=== PATIENT | female | born 1955 | race American Indian/Alaskan Native ===

== ENCOUNTER 2019-01-21 01:29 | Inpatient (IN) | payer MEDICAID ==
[2019-01-21] MEDS ORDERED: NARCAN 2 MG/2 ML ONE (01:56)
[2019-01-21] MEDS ORDERED: NACL 0.9% 1000 ML IV ONE (02:05)
[2019-01-21] MEDS ORDERED: NARCAN 0.4 MG/1 ML IV ONE (02:06)
[2019-01-21] MEDS ORDERED: LEVOPHED DRIP 4 MG/NS 250 ML 4 MG/250 ML BAG IV ONE (02:21)
--- NOTE | 2019-01-21 02:36 | XRay Report ---
CHEST 1 VIEW INDICATION / CLINICAL INFORMATION: ams, depressed mental status, metastatic ca. COMPARISON: None available. FINDINGS: SUPPORT DEVICES: Tracheostomy tube, right central venous line, right pleural drainage tube HEART / MEDIASTINUM: No significant abnormality. LUNGS / PLEURA: Bilateral pleural effusions. Mild interstitial pulmonary edema No pneumothorax. ADDITIONAL FINDINGS: No significant additional findings. IMPRESSION: There are bilateral pleural effusions present with mild interstitial pulmonary edema. Signer Name: Efren Uribe MD FACR Signed: 01/21/2019 2:32 AM Workstation Name: [facility]
[2019-01-21 02:50] LABS: Alanine Aminotransferase 19 units/L (7-56); Albumin 2.8 g/dL (3.9-5); BUN/Creatinine Ratio 26; Blood Urea Nitrogen 21 mg/dL (7-17); Calcium 8.2 mg/dL (8.4-10.2); Hemolysis Index 1
[2019-01-21] MEDS ORDERED: LEVOPHED DRIP 4 MG/NS 250 ML 4 MG/250 ML BAG IV SCH (03:00)
[2019-01-21 03:09] LABS: Basophils # (Auto) 0.1 K/mm3 (0.0-0.1); Basophils % (Auto) 0.7 % (0.0-1.8); Eosinophils # (Auto) 0.1 K/mm3 (0.0-0.4); Eosinophils % (Auto) 1.5 % (0.0-4.3); Hematocrit 26.7 % (30.3-42.9); Hemoglobin 8.6 gm/dl (10.1-14.3); Lymphocytes # (Auto) 0.4 K/mm3 (1.2-5.4); Lymphocytes % (Auto) 4.1 % (13.4-35.0); Mean Corpuscular HGB Conc 32 % (30-34); Mean Corpuscular Volume 101 fl (79-97); Monocytes # (Auto) 0.8 K/mm3 (0.0-0.8); Monocytes % (Auto) 8.3 % (0.0-7.3); Platelet Count 285 K/mm3 (140-440); Red Blood Count 2.64 M/mm3 (3.65-5.03)
[2019-01-21 03:13] LABS: Red Cell Distribution Width 20.2 % (13.2-15.2)
--- NOTE | 2019-01-21 03:21 | Emergency Department Report ---
ED Altered Mental Status HPI - General Chief Complaint: Dyspnea/Respdistress Stated Complaint: CATRACHITA Time Seen by Provider: 01/21/19 01:55 Source: EMS Mode of arrival: Stretcher Limitations: Other - History of Present Illness Initial Comments: 63-year-old female with a past medical history of breast cancer with metastases to the bone, tracheostomy tube, PEG tube, and a right chest tube connected to a Pleur-evac presents to the hospital from inpatient hospice for alteration in mental status. Patient was admitted to inpatient hospice today. Patient's diminished mental status occurred after receiving morphine 5 mg. Patient also presents with the right arm fentanyl patch 50 g placed on 01/18. No meds given on route that EMS did perform suctioning. Patient is lethargic and hypotensive upon arrival. Patient is full code. - Related Data Home Medications Medication Instructions Recorded Confirmed Last Taken Unobtainable 01/21/19 01/21/19 Unknown Allergies Allergy/AdvReac Type Severity Reaction Status Date / Time piperacillin [From Zosyn] Allergy Unknown Verified 01/21/19 01:49 tazobactam [From Zosyn] Allergy Unknown Verified 01/21/19 01:49 ED Review of Systems ROS: Stated complaint: CATRACHITA Other details as noted in HPI Comment: Unobtainable due to pts medical conditions ED Past Medical Hx - Past Medical History Previous Medical History?: Yes Hx of Cancer: Yes (breast and bone) Additional medical history: Trach on vent, - Surgical History Past Surgical History?: Yes Additional Surgical History: Trach, right sided chest tube, PEG tube - Social History Smoking Status: Unknown if ever smoked Substance Use Type: None - Medications Home Medications: Home Medications Medication Instructions Recorded Confirmed Last Taken Type Unobtainable 01/21/19 01/21/19 Unknown History ED Physical Exam - General Limitations: Other - Other Other exam information: General: Patient lethargic but opens eyes to voice and smiles on occasion. Unable to communicate Head exam: Atraumatic, normocephalic Eyes exam: Normal appearance, pupils equal reactive to light ENT: Tracheostomy to Neck exam: Normal inspection, full range of motion, no meningismus nontender Respiratory exam: Diminished breath sounds bilaterally with crackles. Right- sided chest to wishes we connected to Pleur-evac in ED Cardiovascular: Tachycardic regular rhythm. 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 Back: Normal Inspection Neurologic: Alert, oriented x3, cranial nerves intact, no motor or sensory deficit Psychiatric: Lethargic Skin: Warm, dry, intact ED Course Vital Signs 01/21/19 01/21/19 01/21/19 01:48 02:45 03:00 Temperature 96.2 F L Pulse Rate 136 H 122 H 111 H Respiratory 18 25 H 20 Rate Blood Pressure Blood Pressure 67/42 120/54 118/53 [Right] O2 Sat by Pulse 91 75 L 91 Oximetry 01/21/19 01/21/19 01/21/19 03:15 03:20 03:30 Temperature Pulse Rate 107 H 125 H 107 H Respiratory 16 15 Rate Blood Pressure Blood Pressure 115/77 100/53 [Right] O2 Sat by Pulse 98 97 95 Oximetry 01/21/19 06:02 Temperature Pulse Rate 118 H Respiratory Rate Blood Pressure 76/55 Blood Pressure [Right] O2 Sat by Pulse 97 Oximetry - Lab Data Result diagrams: 01/21/19 Unknown 01/21/19 Unknown Lab Results 01/21/19 01/21/19 01/21/19 Range/Units 03:49 03:57 Unknown WBC 9.8 (4.5-11.0) K/mm3 RBC 2.64 L (3.65-5.03) M/mm3 Hgb 8.6 L (10.1-14.3) gm/dl Hct 26.7 L (30.3-42.9) % MCV 101 H (79-97) fl MCH 33 H (28-32) pg MCHC 32 (30-34) % RDW 20.2 H (13.2-15.2) % Plt Count 285 (140-440) K/mm3 Lymph % (Auto) 4.1 L (13.4-35.0) % Mercer % (Auto) 8.3 H (0.0-7.3) % Eos % (Auto) 1.5 (0.0-4.3) % Baso % (Auto) 0.7 (0.0-1.8) % Lymph # 0.4 L (1.2-5.4) K/mm3 Mercer # 0.8 (0.0-0.8) K/mm3 Eos # 0.1 (0.0-0.4) K/mm3 Baso # 0.1 (0.0-0.1) K/mm3 Seg Neutrophils % 85.4 H (40.0-70.0) % Seg Neutrophils # 8.4 H (1.8-7.7) K/mm3 POC ABG pH 7.416 (7.35-7.45) POC ABG pCO2 43.7 (35-45) POC ABG pO2 57 L (80-105) POC ABG HCO3 28.1 (22-26 mml/L) POC ABG Total CO2 29 (23-27mmol/L) POC ABG O2 Sat 90 POC ABG Base Excess 4 ((-2) - (+3)mmol/L) FiO2 60 % Sodium (137-145) mmol/L Potassium (3.6-5.0) mmol/L Chloride (98-107) mmol/L Carbon Dioxide (22-30) mmol/L Anion Gap mmol/L BUN (7-17) mg/dL Creatinine (0.7-1.2) mg/dL Estimated GFR ml/min BUN/Creatinine Ratio % Glucose (65-100) mg/dL Lactic Acid (0.7-2.0) mmol/L Calcium (8.4-10.2) mg/dL Magnesium (1.7-2.3) mg/dL Total Bilirubin (0.1-1.2) mg/dL AST (5-40) units/L ALT (7-56) units/L Alkaline Phosphatase (35-129) units/L Troponin T (0.00-0.029) ng/mL Total Protein (6.3-8.2) g/dL Albumin (3.9-5) g/dL Albumin/Globulin Ratio % Urine Color Yellow (Yellow) Urine Turbidity Slightly-cloudy (Clear) Urine pH 5.0 (5.0-7.0) Ur Specific Creole 1.016 (1.003-1.030) Urine Protein 30 mg/dl (Negative) mg/dL Urine Glucose (UA) Neg (Negative) mg/dL Urine Ketones Tr (Negative) mg/dL Urine Blood Neg (Negative) Urine Nitrite Neg (Negative) Urine Bilirubin Neg (Negative) Urine Urobilinogen < 2.0 (<2.0) mg/dL Ur Leukocyte Esterase Sm (Negative) Urine WBC (Auto) 17.0 H (0.0-6.0) /HPF Urine RBC (Auto) 4.0 (0.0-6.0) /HPF U Epithel Cells (Auto) 1.0 (0-13.0) /HPF Urine WBC Clumps Few /HPF Hyaline Casts 3 /LPF Granular Casts 1 /LPF Urine Mucus Few /HPF Urine Yeast (Budding) 3+ /HPF 01/21/19 01/21/19 01/21/19 Range/Units Unknown Unknown Unknown WBC (4.5-11.0) K/mm3 RBC (3.65-5.03) M/mm3 Hgb (10.1-14.3) gm/dl Hct (30.3-42.9) % MCV (79-97) fl MCH (28-32) pg MCHC (30-34) % RDW (13.2-15.2) % Plt Count (140-440) K/mm3 Lymph % (Auto) (13.4-35.0) % Mercer % (Auto) (0.0-7.3) % Eos % (Auto) (0.0-4.3) % Baso % (Auto) (0.0-1.8) % Lymph # (1.2-5.4) K/mm3 Mercer # (0.0-0.8) K/mm3 Eos # (0.0-0.4) K/mm3 Baso # (0.0-0.1) K/mm3 Seg Neutrophils % (40.0-70.0) % Seg Neutrophils # (1.8-7.7) K/mm3 POC ABG pH (7.35-7.45) POC ABG pCO2 (35-45) POC ABG pO2 (80-105) POC ABG HCO3 (22-26 mml/L) POC ABG Total CO2 (23-27mmol/L) POC ABG O2 Sat POC ABG Base Excess ((-2) - (+3)mmol/L) FiO2 % Sodium 138 (137-145) mmol/L Potassium 4.0 (3.6-5.0) mmol/L Chloride 98.0 (98-107) mmol/L Carbon Dioxide 31 H (22-30) mmol/L Anion Gap 13 mmol/L BUN 21 H (7-17) mg/dL Creatinine 0.8 (0.7-1.2) mg/dL Estimated GFR > 60 ml/min BUN/Creatinine Ratio 26 % Glucose 104 H (65-100) mg/dL Lactic Acid 1.90 (0.7-2.0) mmol/L Calcium 8.2 L (8.4-10.2) mg/dL Magnesium 2.40 H (1.7-2.3) mg/dL Total Bilirubin 0.20 (0.1-1.2) mg/dL AST 52 H (5-40) units/L ALT 19 (7-56) units/L Alkaline Phosphatase 92 (35-129) units/L Troponin T 0.027 (0.00-0.029) ng/mL Total Protein 5.8 L (6.3-8.2) g/dL Albumin 2.8 L (3.9-5) g/dL Albumin/Globulin Ratio 0.9 % Urine Color (Yellow) Urine Turbidity (Clear) Urine pH (5.0-7.0) Ur Specific Creole (1.003-1.030) Urine Protein (Negative) mg/dL Urine Glucose (UA) (Negative) mg/dL Urine Ketones (Negative) mg/dL Urine Blood (Negative) Urine Nitrite (Negative) Urine Bilirubin (Negative) Urine Urobilinogen (<2.0) mg/dL Ur Leukocyte Esterase (Negative) Urine WBC (Auto) (0.0-6.0) /HPF Urine RBC (Auto) (0.0-6.0) /HPF U Epithel Cells (Auto) (0-13.0) /HPF Urine WBC Clumps /HPF Hyaline Casts /LPF Granular Casts /LPF Urine Mucus /HPF Urine Yeast (Budding) /HPF - EKG Data -: EKG Interpreted by Me (low voltage) EKG shows normal: sinus rhythm, axis (qrs 18), QRS complexes (qrsd 68), ST-T waves (no stemi) Rate: tachycardia (117) When compared to previous EKG there are: previous EKG unavailable - Radiology Data Radiology results: report reviewed CHEST 1 VIEW INDICATION / CLINICAL INFORMATION: ams, depressed mental status, metastatic ca. COMPARISON: None available. FINDINGS: SUPPORT DEVICES: Tracheostomy tube, right central venous line, right pleural drainage tube HEART / MEDIASTINUM: No significant abnormality. LUNGS / PLEURA: Bilateral pleural effusions. Mild interstitial pulmonary edema No pneumothorax. ADDITIONAL FINDI NGS: No significant additional findings. IMPRESSION: There are bilateral pleural effusions present with mild interstitial pulmonary edema. CT head/brain wo con INDICATION / CLINICAL INFORMATION: metastatic cancer, ams. TECHNIQUE: All CT scans at this location are performed using CT dose reduction for ALARA by means of automated exposure control. COMPARISON: None available. FINDINGS: Ventricle size is normal. No mass or mass effect is seen. There is no evidence of intracranial hemorrhage. No obvious area of infarction is identified. There are multiple sclerotic lesions seen in the skull. Visualized paranasal sinuses are clear IMPRESSION: Multiple sclerotic lesions seen in the skull. No acute intracranial abnormality is identified - Medical Decision Making Other differential, CO2 retention. She presented to hypotensive and lethargic Patient had fentanyl patch removed and received Narcan 0.4 mg with some improvement in mental status Initially a sepsis protocol was initiated due to hypotension and tachycardia. 30 mL per KG bolus initially ordered but scaled back to 1 L baseline chest x-ray findings of pulmonary edema and pleural effusion. Patient's port was accessed and patient placed on Levophed drip to support a MAP of 65 Patient will be admitted to the hospital after CT head ABG did not reveal any significant acid-base disturbance. Straight cath of urine shows UTI. Levaquin ordered. - Differential Diagnosis infection, sepsis, anemia, narcotic overdose, intracranial hemorrhage/mass Critical Care Time: Yes Critical care time in (mins) excluding proc time.: 35 Critical care attestation.: If time is entered above; I have spent that time in minutes in the direct care of this critically ill patient, excluding procedure time. ED Disposition Clinical Impression: Narcotic overdose, UTI (urinary tract infection), Sepsis, Breast cancer metastasized to bone, Chest tube in place, Pulmonary edema, Pleural effusion, Hypotension, Anemia, Hospice care patient Disposition: 09 OP ADMIT IP TO THIS HOSP Is pt being admited?: Yes Condition: Stable Time of Disposition: 05:19 (Dr Powers/hosp)
[2019-01-21 04:42] LABS: Bilirubin,Urine NEG (Negative); Blood,Urine NEG (Negative); Color,Urine Yellow (Yellow); Granular Casts,Urine 1 /LPF; Hyaline Casts,Urine 3 /LPF; Mucus,Urine FEW /HPF; Urobilinogen,Urine < 2.0 mg/dL (<2.0)
[2019-01-21] MEDS ORDERED: LEVAQUIN 750MG/150ML 750 MG/150 ML BAG IV ONE (04:52)
[2019-01-21] MEDS ORDERED: SODIUM CHLORIDE FLUSH SYRINGE 10 ML IV PRN (05:25)
[2019-01-21] MEDS ORDERED: PROVENTIL IH PRN (05:25)
[2019-01-21] MEDS ORDERED: ZOFRAN IV PRN (05:25)
--- NOTE | 2019-01-21 05:34 | History and Physical Report ---
<YUNIOR NAVA - Last Filed: 01/21/19 06:26> History of Present Illness Date of examination: 01/21/19 Date of admission: 01/21/2019 Chief complaint: AMS History of present illness: 63-year-old -[place] female with history of breast cancer with metastases to bones, chronic hypoxic respiratory failure s/p trach on vent, PEG tube, right sided Pleura Vac to waterseal presents to [facility] ED via EMS from in- patient hospice with complaints of AMS. Pt was admitted to in-patient hospice on 01/20/19. She had right arm fentanyl patch 50 g placed on 01/18. She received Morhine 5mg and during the course of the day hospice staff noticed a decline in mentation; EMS was called and she was transported to our facility. Upon arrival to our facility the fentanyl patch was removed and she was given Narcan. Past History Past Medical History: cancer (breast cancer with metastases to bones), other (re spiratory failure on vent) Past Surgical History: Other (s/p trach; s/p PEG, rt sided chest port, rt sided pleura vac) Social history: other (in-patient hospice) Family history: no significant family history Medications and Allergies Allergies Allergy/AdvReac Type Severity Reaction Status Date / Time piperacillin [From Zosyn] Allergy Unknown Verified 01/21/19 01:49 tazobactam [From Zosyn] Allergy Unknown Verified 01/21/19 01:49 Home Medications Medication Instructions Recorded Confirmed Last Taken Type Famotidine [Pepcid] 40 mg PO DAILY 01/23/19 01/23/19 Unknown History Lyrica 150 mg PO DAILY 01/23/19 01/23/19 Unknown History Metoprolol Tartrate 6.25 mg PO BID 01/23/19 01/23/19 Unknown History Percocet 10/325 mg 1 tab PO TID 01/23/19 01/23/19 Unknown History diphenhydrAMINE [Benadryl CAP] 25 mg PO QHS PRN 01/23/19 01/23/19 Unknown History fentaNYL [Fentanyl] 50 mcg TP Q72HR 01/23/19 01/23/19 Unknown History Active Meds: Active Medications Acetaminophen (Tylenol) 650 mg PO Q4H PRN PRN Reason: Pain MILD(1-3)/Fever >100.5/[place] Albuterol (Proventil) 2.5 mg IH Q3HRT PRN PRN Reason: Shortness Of Breath Enoxaparin Sodium (Lovenox) 40 mg SUB-Q QDAY LUPIS Hydromorphone HCl (Dilaudid) 0.5 mg IV Q3H PRN PRN Reason: Pain , Severe (7-10) Norepinephrine (Levophed Drip 4 Mg/Ns 250 Ml) 4 mg in 250 mls @ 7.5 mls/hr IV TITR LUPIS; Protocol Last Admin: 01/21/19 02:33 Dose: 2 mcg/min, 7.5 mls/hr Documented by: Levofloxacin/Dextrose (Levaquin 750mg/150ml) 750 mg in 150 mls @ 100 mls/hr IV ONCE ONE Stop: 01/21/19 06:21 Morphine Sulfate (Morphine) 2 mg IV Q4H PRN PRN Reason: Pain, Moderate (4-6) Ondansetron HCl (Zofran) 4 mg IV Q8H PRN PRN Reason: Nausea And Vomiting Sodium Chloride (Sodium Chloride Flush Syringe 10 Ml) 10 ml IV BID LUPIS Sodium Chloride (Sodium Chloride Flush Syringe 10 Ml) 10 ml IV PRN PRN PRN Reason: LINE FLUSH Review of Systems ROS unobtainable: due to mental status Exam - Physical Exam Narrative exam: Physical exam General appearance: Present: No acute distress, awake, unable to assess orientation, patient has trach on vent - EENT Eyes: Present: PERRL, EOM intact ENT: hearing intact, poor dentition - Neck Neck: Present: supple, normal ROM - Respiratory Respiratory effort: Non-labored, on mechanical ventilation support Respiratory: Coarse breath sounds - Cardiovascular Heart rate: 117 (bpm) Rhythm: ST Heart Sounds: Present: S1 & S2. Absent: rub, click - Extremities Extremities: no ischemia, pulses intact, right chest port, right sided pleura Vac to waterseal - Peripheral Assessment Peripheral Pulses: within normal limits - Abdominal General gastrointestinal: soft, non-tender, normal bowel sounds - Integumentary Integumentary: Present: warm, dry - Musculoskeletal Musculoskeletal: generalized weakness - Psychiatric Psychiatric: Unable to assess - Constitutional Vitals: Temp Pulse Resp BP Pulse Ox 96.2 F L 107 H 15 100/53 95 01/21/19 01:48 01/21/19 03:30 01/21/19 03:30 01/21/19 03:30 01/21/19 03:30 Results - Labs CBC & Chem 7: 01/21/19 Unknown 01/21/19 Unknown Labs: Laboratory Last Values WBC 9.8 K/mm3 (4.5-11.0) 01/21/19 Unknown RBC 2.64 M/mm3 (3.65-5.03) L 01/21/19 Unknown Hgb 8.6 gm/dl (10.1-14.3) L 01/21/19 Unknown Hct 26.7 % (30.3-42.9) L 01/21/19 Unknown MCV 101 fl (79-97) H 01/21/19 Unknown MCH 33 pg (28-32) H 01/21/19 Unknown MCHC 32 % (30-34) 01/21/19 Unknown RDW 20.2 % (13.2-15.2) H 01/21/19 Unknown Plt Count 285 K/mm3 (140-440) 01/21/19 Unknown Lymph % (Auto) 4.1 % (13.4-35.0) L 01/21/19 Unknown [place] % (Auto) 8.3 % (0.0-7.3) H 01/21/19 Unknown Eos % (Auto) 1.5 % (0.0-4.3) 01/21/19 Unknown Baso % (Auto) 0.7 % (0.0-1.8) 01/21/19 Unknown Lymph # 0.4 K/mm3 (1.2-5.4) L 01/21/19 Unknown [place] # 0.8 K/mm3 (0.0-0.8) 01/21/19 Unknown Eos # 0.1 K/mm3 (0.0-0.4) 01/21/19 Unknown Baso # 0.1 K/mm3 (0.0-0.1) 01/21/19 Unknown Seg Neutrophils % 85.4 % (40.0-70.0) H 01/21/19 Unknown Seg Neutrophils # 8.4 K/mm3 (1.8-7.7) H 01/21/19 Unknown POC ABG pH 7.416 (7.35-7.45) 01/21/19 03:57 POC ABG pCO2 43.7 (35-45) 01/21/19 03:57 POC ABG pO2 57 (80-105) L 01/21/19 03:57 POC ABG HCO3 28.1 (22-26 mml/L) 01/21/19 03:57 POC ABG Total CO2 29 (23-27mmol/L) 01/21/19 03:57 POC ABG O2 Sat 90 01/21/19 03:57 POC ABG Base Excess 4 ((-2) - (+3)mmol/L) 01/21/19 03:57 60 % 01/21/19 03:57 Sodium 138 mmol/L (137-145) 01/21/19 Unknown Potassium 4.0 mmol/L (3.6-5.0) 01/21/19 Unknown Chloride 98.0 mmol/L (98-107) 01/21/19 Unknown Carbon Dioxide 31 mmol/L (22-30) H 01/21/19 Unknown 13 mmol/L 01/21/19 Unknown BUN 21 mg/dL (7-17) H 01/21/19 Unknown 0.8 mg/dL (0.7-1.2) 01/21/19 Unknown Estimated GFR > 60 ml/min 01/21/19 Unknown 26 % 01/21/19 Unknown Glucose 104 mg/dL (65-100) H 01/21/19 Unknown Lactic Acid 1.90 mmol/L (0.7-2.0) 01/21/19 Unknown Calcium 8.2 mg/dL (8.4-10.2) L 01/21/19 Unknown Magnesium 2.40 mg/dL (1.7-2.3) H 01/21/19 Unknown 0.20 mg/dL (0.1-1.2) 01/21/19 Unknown AST 52 units/L (5-40) H 01/21/19 Unknown ALT 19 units/L (7-56) 01/21/19 Unknown 92 units/L (35-129) 01/21/19 Unknown 0.027 ng/mL (0.00-0.029) 01/21/19 Unknown 5.8 g/dL (6.3-8.2) L 01/21/19 Unknown 2.8 g/dL (3.9-5) L 01/21/19 Unknown 0.9 % 01/21/19 Unknown Yellow (Yellow) 01/21/19 03:49 Slightly-cloudy (Clear) 01/21/19 03:49 5.0 (5.0-7.0) 01/21/19 03:49 Ur Specific [place] 1.016 (1.003-1.030) 01/21/19 03:49 30 mg/dl mg/dL (Negative) 01/21/19 03:49 Neg mg/dL (Negative) 01/21/19 03:49 Tr mg/dL (Negative) 01/21/19 03:49 Neg (Negative) 01/21/19 03:49 Neg (Negative) 01/21/19 03:49 Neg (Negative) 01/21/19 03:49 < 2.0 mg/dL (<2.0) 01/21/19 03:49 Ur Leukocyte Esterase Sm (Negative) 01/21/19 03:49 17.0 /HPF (0.0-6.0) H 01/21/19 03:49 4.0 /HPF (0.0-6.0) 01/21/19 03:49 U Epithel Cells (Auto) 1.0 /HPF (0-13.0) 01/21/19 03:49 Few /HPF 01/21/19 03:49 Hyaline Casts 3 /LPF 01/21/19 03:49 Granular Casts 1 /LPF 01/21/19 03:49 Few /HPF 01/21/19 03:49 3+ /HPF 01/21/19 03:49 - Imaging and Cardiology Chest x-ray: report reviewed (There are bilateral pleural effusions present with mild interstitial pulmonary edema. ), image reviewed Imaging and Cardiology: CT Head: FINDINGS: Ventricle size is normal. No mass or mass effect is seen. There is no evidence of intracranial hemorrhage. No obvious area of infarction is identified. There are multiple sclerotic lesions seen in the skull. Visualized paranasal sinuses are clear IMPRESSION: Multiple sclerotic lesions seen in the skull. No acute intracranial abnormality is identified Assessment and Plan Assessment and plan: 63-year-old -[place] female with history of breast cancer with metastases to bones, chronic hypoxic respiratory failure s/p trach on vent, PEG tube, right sided Pleura Vac to waterseal presents to [facility] ED via EMS from in- patient hospice with complaints of AMS. Upon arrival to our facility she was found to be lethargic and hypotensive. Pt is on in-patient hospice, but family does not want her to return to that facility. Will place a Case management consult for help with new hospice placement. Sepsis -Initiate sepsis protocol -Currently hypotensive on levophed drip to maintain map 65> -Gentle Hydration with IVF -On IV abx -Blood Cultures pending Urinary tract infection -UA showed urine WBC 17 -Urine culture pending -On IV abx Acute encephalopathy -Neuro Checks -Continue supportive care -CT Head negative for evidence of intracranial hemorrhage. No obvious area of infarction is identified. There are multiple sclerotic lesions seen in the skull Moderate to severe malnutrition -s/p Peg -Dietitian consult pending Chronic Hypoxic Respiratory Failure -s/p trach -on Vent -Monitor saturation -Albuterol prn -Guaifenesin when necessary -Respiratory to treat and assess per protocol Anemia of Chronic Disease -Hgb on admission 8.6 -No s/s of active bleeding -Monitor hgb -Transfuse when necessary DVT PPX -on Lovenox History of breast cancer with mets to bones Right sided Chest Tube Pleura Vac to waterseal Advance Directives: No VTE prophylaxis?: Chemical Plan of care discussed with patient/family: Yes <STONEY SMITH - Last Filed: 01/25/19 03:20> Medications and Allergies Active Meds: Active Medications Acetaminophen (Tylenol) 650 mg PO Q4H PRN PRN Reason: Pain MILD(1-3)/Fever >100.5/[place] Albuterol (Proventil) 2.5 mg IH Q3HRT PRN PRN Reason: Shortness Of Breath Enoxaparin Sodium (Lovenox) 40 mg SUB-Q QDAY LUPIS Guaifenesin (Guaifenesin Dm Syrup) 10 ml PO Q4H PRN PRN Reason: Cough Hydromorphone HCl (Dilaudid) 0.5 mg IV Q3H PRN PRN Reason: Pain , Severe (7-10) Norepinephrine (Levophed Drip 4 Mg/Ns 250 Ml) 4 mg in 250 mls @ 7.5 mls/hr IV TITR LUPIS; Protocol Last Admin: 01/21/19 02:33 Dose: 2 mcg/min, 7.5 mls/hr Documented by: Ceftriaxone Sodium (Rocephin/Ns 1 Gm/50 Ml) 1 gm in 50 mls @ 100 mls/hr IV Q24HR LUPIS; Protocol Sodium Chloride (Nacl 0.9% 1000 Ml) 1,000 mls @ 75 mls/hr IV DIRECT LUPIS Morphine Sulfate (Morphine) 2 mg IV Q4H PRN PRN Reason: Pain, Moderate (4-6) Ondansetron HCl (Zofran) 4 mg IV Q8H PRN PRN Reason: Nausea And Vomiting Sodium Chloride (Sodium Chloride Flush Syringe 10 Ml) 10 ml IV BID LUPIS Sodium Chloride (Sodium Chloride Flush Syringe 10 Ml) 10 ml IV PRN PRN PRN Reason: LINE FLUSH Exam - Constitutional Vitals: Temp Pulse Resp BP Pulse Ox 96.2 F L 118 H 15 76/55 97 01/21/19 01:48 01/21/19 06:02 01/21/19 03:30 01/21/19 06:02 01/21/19 06:02 Results - Labs CBC & Chem 7: 01/23/19 04:05 01/24/19 04:29 Labs: Laboratory Last Values WBC 9.8 K/mm3 (4.5-11.0) 01/21/19 Unknown RBC 2.64 M/mm3 (3.65-5.03) L 01/21/19 Unknown Hgb 8.6 gm/dl (10.1-14.3) L 01/21/19 Unknown Hct 26.7 % (30.3-42.9) L 01/21/19 Unknown MCV 101 fl (79-97) H 01/21/19 Unknown MCH 33 pg (28-32) H 01/21/19 Unknown MCHC 32 % (30-34) 01/21/19 Unknown RDW 20.2 % (13.2-15.2) H 01/21/19 Unknown Plt Count 285 K/mm3 (140-440) 01/21/19 Unknown Lymph % (Auto) 4.1 % (13.4-35.0) L 01/21/19 Unknown [place] % (Auto) 8.3 % (0.0-7.3) H 01/21/19 Unknown Eos % (Auto) 1.5 % (0.0-4.3) 01/21/19 Unknown Baso % (Auto) 0.7 % (0.0-1.8) 01/21/19 Unknown Lymph # 0.4 K/mm3 (1.2-5.4) L 01/21/19 Unknown [place] # 0.8 K/mm3 (0.0-0.8) 01/21/19 Unknown Eos # 0.1 K/mm3 (0.0-0.4) 01/21/19 Unknown Baso # 0.1 K/mm3 (0.0-0.1) 01/21/19 Unknown Seg Neutrophils % 85.4 % (40.0-70.0) H 01/21/19 Unknown Seg Neutrophils # 8.4 K/mm3 (1.8-7.7) H 01/21/19 Unknown POC ABG pH 7.416 (7.35-7.45) 01/21/19 03:57 POC ABG pCO2 43.7 (35-45) 01/21/19 03:57 POC ABG pO2 57 (80-105) L 01/21/19 03:57 POC ABG HCO3 28.1 (22-26 mml/L) 01/21/19 03:57 POC ABG Total CO2 29 (23-27mmol/L) 01/21/19 03:57 POC ABG O2 Sat 90 01/21/19 03:57 POC ABG Base Excess 4 ((-2) - (+3)mmol/L) 01/21/19 03:57 60 % 01/21/19 03:57 Sodium 138 mmol/L (137-145) 01/21/19 Unknown Potassium 4.0 mmol/L (3.6-5.0) 01/21/19 Unknown Chloride 98.0 mmol/L (98-107) 01/21/19 Unknown Carbon Dioxide 31 mmol/L (22-30) H 01/21/19 Unknown 13 mmol/L 01/21/19 Unknown BUN 21 mg/dL (7-17) H 01/21/19 Unknown 0.8 mg/dL (0.7-1.2) 01/21/19 Unknown Estimated GFR > 60 ml/min 01/21/19 Unknown 26 % 01/21/19 Unknown Glucose 104 mg/dL (65-100) H 01/21/19 Unknown Lactic Acid 1.90 mmol/L (0.7-2.0) 01/21/19 Unknown Calcium 8.2 mg/dL (8.4-10.2) L 01/21/19 Unknown Magnesium 2.40 mg/dL (1.7-2.3) H 01/21/19 Unknown 0.20 mg/dL (0.1-1.2) 01/21/19 Unknown AST 52 units/L (5-40) H 01/21/19 Unknown ALT 19 units/L (7-56) 01/21/19 Unknown 92 units/L (35-129) 01/21/19 Unknown 0.027 ng/mL (0.00-0.029) 01/21/19 Unknown 5.8 g/dL (6.3-8.2) L 01/21/19 Unknown 2.8 g/dL (3.9-5) L 01/21/19 Unknown 0.9 % 01/21/19 Unknown Yellow (Yellow) 01/21/19 03:49 Slightly-cloudy (Clear) 01/21/19 03:49 5.0 (5.0-7.0) 01/21/19 03:49 Ur Specific [place] 1.016 (1.003-1.030) 01/21/19 03:49 30 mg/dl mg/dL (Negative) 01/21/19 03:49 Neg mg/dL (Negative) 01/21/19 03:49 Tr mg/dL (Negative) 01/21/19 03:49 Neg (Negative) 01/21/19 03:49 Neg (Negative) 01/21/19 03:49 Neg (Negative) 01/21/19 03:49 < 2.0 mg/dL (<2.0) 01/21/19 03:49 Ur Leukocyte Esterase Sm (Negative) 01/21/19 03:49 17.0 /HPF (0.0-6.0) H 01/21/19 03:49 4.0 /HPF (0.0-6.0) 01/21/19 03:49 U Epithel Cells (Auto) 1.0 /HPF (0-13.0) 01/21/19 03:49 Few /HPF 01/21/19 03:49 Hyaline Casts 3 /LPF 01/21/19 03:49 Granular Casts 1 /LPF 01/21/19 03:49 Few /HPF 01/21/19 03:49 3+ /HPF 01/21/19 03:49 Assessment and Plan Assessment and plan: 63 year old woman with met breast cancer, trach, peg, right pleural vac was sent to the ER for AMS. She was given 5mg of IV morphine, she has a fentanyl patch on. She complains of abdominal pain. On IV levaquin, start aztreonan, check CT abd, consult critical care
--- NOTE | 2019-01-21 06:19 | Cat Scan Report ---
CT head/brain wo con INDICATION / CLINICAL INFORMATION: metastatic cancer, ams. TECHNIQUE: All CT scans at this location are performed using CT dose reduction for ALARA by means of automated e xposure control. COMPARISON: None available. FINDINGS: Ventricle size is normal. No mass or mass effect is seen. There is no evidence of intracranial hemorr kady. No obvious area of infarction is identified. There are multiple sclerotic lesions seen in the s kull. Visualized paranasal sinuses are clear IMPRESSION: Multiple sclerotic lesions seen in the skull. No acute intracranial abnormality is identified Signer Name: Efren Uribe MD FACR Signed: 01/21/2019 6:14 AM Workstation Name: [id number]
[2019-01-21] MEDS: NACL 0.9% 1000 ML 1,000 ML IV SCH ×2 (06:52→19:21)
[2019-01-21] MEDS ORDERED: AZACTAM/NS 1 GM/50 ML 1 GM/50 ML VIAL IV SCH (08:00)
[2019-01-21] MEDS ORDERED: LOVENOX SUB-Q SCH (10:00)
[2019-01-21] MEDS ORDERED: ROCEPHIN/NS 1 GM/50 ML 1 GM/50 ML BAG IV SCH (10:00)
[2019-01-21] MEDS ORDERED: HEPARIN SUB-Q SCH (10:00)
[2019-01-21] MEDS: SODIUM CHLORIDE FLUSH SYRINGE 10 ML IV SCH (10:11)
--- NOTE | 2019-01-21 10:51 | Event Note ---
Date: 01/21/19 Pt admitted today for septic shock probably sec to UTI. Plan is to continue current tx and await blood and urine culture results.
--- NOTE | 2019-01-21 11:23 | Consultation ---
History of Present Illness Consult date: 01/21/19 Requesting physician: AMY GRAY Reason for consult: other (Hypotension) History of present illness: 63 y/o female, apparently admitted to an inpatient hospice facility for metastatic breast CA with mets to bone who was transported to [facility] ED secondary to altered mental state. Per report, patient was given morphine and became lethargic. Was given narcan and then improved however she was hypotensive as well. Her port was accessed and she was started on levophed drip and transitioned to the ICU. Patient was also on the ventilator at the outside facility. There is currently no family at bedside to provide any further history. Remainder is negative. Past History Past Medical History: cancer (breast cancer with metastases to bones), other (respiratory failure on vent) Past Surgical History: Other (s/p trach; s/p PEG, rt sided chest port, rt sided pleura vac) Social history: other (in-patient hospice) Family history: no significant family history Medications and Allergies Allergies Allergy/AdvReac Type Severity Reaction Status Date / Time piperacillin [From Zosyn] Allergy Unknown Verified 01/21/19 01:49 tazobactam [From Zosyn] Allergy Unknown Verified 01/21/19 01:49 Home Medications Medication Instructions Recorded Confirmed Last Taken Type Unobtainable 01/21/19 01/21/19 Unknown History Active Meds: Active Medications Acetaminophen (Tylenol) 650 mg PO Q4H PRN PRN Reason: Pain MILD(1-3)/Fever >100.5/[place] Albuterol (Proventil) 2.5 mg IH Q3HRT PRN PRN Reason: Shortness Of Breath Guaifenesin (Guaifenesin Dm Syrup) 10 ml PO Q4H PRN PRN Reason: Cough Hydromorphone HCl (Dilaudid) 0.5 mg IV Q3H PRN PRN Reason: Pain , Severe (7-10) Norepinephrine (Levophed Drip 4 Mg/Ns 250 Ml) 4 mg in 250 mls @ 7.5 mls/hr IV TITR LUPIS; Protocol Last Titration: 01/21/19 11:05 Dose: 4 mcg/min, 15 mls/hr Documented by: Sodium Chloride (Nacl 0.9% 1000 Ml) 1,000 mls @ 75 mls/hr IV DIRECT LUPIS Last Admin: 01/21/19 06:52 Dose: 75 mls/hr Documented by: Morphine Sulfate (Morphine) 2 mg IV Q4H PRN PRN Reason: Pain, Moderate (4-6) Ondansetron HCl (Zofran) 4 mg IV Q8H PRN PRN Reason: Nausea And Vomiting Sodium Chloride (Sodium Chloride Flush Syringe 10 Ml) 10 ml IV BID [facility] Last Admin: 01/21/19 10:11 Dose: 10 ml Documented by: Sodium Chloride (Sodium Chloride Flush Syringe 10 Ml) 10 ml IV PRN PRN PRN Reason: LINE FLUSH Review of Systems ROS unobtainable: due to endotracheal tube Physical Examination Vital signs: Vital Signs Temp Pulse Resp BP Pulse Ox 96.2 F L 136 H 18 67/42 91 01/21/19 01:48 01/21/19 01:48 01/21/19 01:48 01/21/19 01:48 01/21/19 01:48 General appearance: no acute distress, alert Neck: other (trach is midline) Ascultation: Bilateral: diminished breath sounds, rales Percussion: Bilateral: not dull Cardiovascular: regular rate and rhythm Gastrointestinal: soft, other (peg tubes) Extremities: no edema, pink and warm normal mental status Results - Laboratory Findings CBC and BMP: 01/21/19 Unknown 01/21/19 Unknown ABG POC ABG pH 7.416 (7.35-7.45) 01/21/19 03:57 POC ABG pCO2 43.7 (35-45) 01/21/19 03:57 POC ABG pO2 57 (80-105) L 01/21/19 03:57 POC ABG HCO3 28.1 (22-26 mml/L) 01/21/19 03:57 POC ABG Total CO2 29 (23-27mmol/L) 01/21/19 03:57 POC ABG O2 Sat 90 01/21/19 03:57 Abnormal lab findings: Abnormal Labs 01/21/19 01/21/19 01/21/19 03:49 03:57 09:40 RBC Hgb Hct MCV MCH RDW Lymph % (Auto) [place] % (Auto) Lymph # Seg Neutrophils % Seg Neutrophils # POC ABG pO2 57 L Carbon Dioxide BUN Glucose POC Glucose 135 H Calcium Magnesium AST Total Protein Albumin Urine WBC (Auto) 17.0 H 01/21/19 01/21/19 01/21/19 Unknown Unknown Unknown RBC 2.64 L Hgb 8.6 L Hct 26.7 L MCV 101 H MCH 33 H RDW 20.2 H Lymph % (Auto) 4.1 L [place] % (Auto) 8.3 H Lymph # 0.4 L Seg Neutrophils % 85.4 H Seg Neutrophils # 8.4 H POC ABG pO2 Carbon Dioxide 31 H BUN 21 H Glucose 104 H POC Glucose Calcium 8.2 L Magnesium 2.40 H AST 52 H Total Protein 5.8 L Albumin 2.8 L Urine WBC (Auto) - Diagnostic Findings Chest x-ray: image reviewed (large right sided effusion with either pulmonary edema or lymphangitic spread of breast CA) Assessment and Plan 63 y/o female with stage IV breast CA with mets to the bone, 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 1. need to have long discussion with family about goals of care and under standing of what inpatient hospice means. 2. Will give normal saline bolus of 500cc's now 3. Wean Levophed off for MAPS greater than 60-65 4. stopped abx therapy 5. If family fully understands and accepts hospice then should go back to inpatient facility as DNR/DNI. If not, need to set up home care for patient and family would need vent training and management training as well. CCT 31 minutes.
[2019-01-21] MEDS ORDERED: LEVAQUIN 750MG/150ML 750 MG/150 ML BAG IV SCH (12:00)
[2019-01-21] MEDS ORDERED: NACL 0.9% 500 ML 500 ML IV SCH (12:00)
[2019-01-21] MEDS: DILAUDID IV PRN (12:46)
[2019-01-21] MEDS ORDERED: SODIUM BICARBONATE FEEDTUBE PRN (15:02)
[2019-01-21] MEDS ORDERED: PANCREAZE DR 10,500 UNIT FEEDTUBE PRN (15:02)
[2019-01-21] MEDS ORDERED: SIMPLE SYRUP FEEDTUBE PRN ×2 (15:02)
[2019-01-21] MEDS: TYLENOL PO PRN (19:02)
[2019-01-22] MEDS: SODIUM CHLORIDE FLUSH SYRINGE 10 ML IV SCH ×3 (00:13→22:00)
[2019-01-22] MEDS: MORPHINE IV PRN ×3 (00:20→11:50)
[2019-01-22] MEDS: DILAUDID IV PRN ×2 (08:24→18:21)
[2019-01-22] MEDS: NACL 0.9% 1000 ML 1,000 ML IV SCH (08:25)
--- NOTE | 2019-01-22 10:50 | Progress Note ---
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 1. Family does not want hospice. CM has sent referrals out to several different vent facilities and she has been denies from all of them. There is one that remains and they are evaluating her chart today. 2. Continue supportive management including tube feeds and vent support. Overall prognosis remains the same which is poor but appears that family does not accept this. If facilities will not accept patient then next step would be home with home vent and family would have to manage her. CCT 31 minutes. Subjective Date of service: 01/22/19 Interval history: Spoke with Case Management on yesterday. Family does not want hospice. Im not sure how they ended up there in the first place. Patient is awake asking for food and drink. No family at bedside. Objective Vital Signs - 12hr 01/21/19 01/21/19 01/22/19 23:00 23:44 00:00 Temperature 98.7 F Pulse Rate 91 H 92 H 93 H Pulse Rate [ 91 H From Monitor] Respiratory 22 26 H Rate Blood Pressure 101/53 109/59 108/55 O2 Sat by Pulse 96 95 97 Oximetry O2 Sat by Pulse Oximetry [ Assessment] 01/22/19 01/22/19 01/22/19 00:12 01:00 02:00 Temperature Pulse Rate 98 H 80 92 H Pulse Rate [ From Monitor] Respiratory 17 16 27 H Rate Blood Pressure 108/55 98/53 105/61 O2 Sat by Pulse 97 89 99 Oximetry O2 Sat by Pulse Oximetry [ Assessment] 01/22/19 01/22/19 01/22/19 02:14 02:18 03:00 Temperature Pulse Rate 99 H 85 Pulse Rate [ From Monitor] Respiratory 19 Rate Blood Pressure 105/57 111/59 O2 Sat by Pulse 97 98 Oximetry O2 Sat by Pulse 97 Oximetry [ Assessment] 01/22/19 01/22/19 01/22/19 03:39 04:00 04:34 Temperature 98.9 F Pulse Rate 95 H 86 Pulse Rate [ 99 H From Monitor] Respiratory 24 Rate Blood Pressure 108/58 102/53 O2 Sat by Pulse 97 97 Oximetry O2 Sat by Pulse Oximetry [ Assessment] 01/22/19 01/22/19 01/22/19 05:00 06:00 07:00 Temperature Pulse Rate 96 H 84 111 H Pulse Rate [ From Monitor] Respiratory 25 H 18 25 H Rate Blood Pressure 103/60 120/65 112/67 O2 Sat by Pulse 97 95 95 Oximetry O2 Sat by Pulse Oximetry [ Assessment] 01/22/19 01/22/19 01/22/19 08:00 09:00 10:00 Temperature 98.2 F Pulse Rate 101 H 88 103 H Pulse Rate [ From Monitor] Respiratory 21 21 24 Rate Blood Pressure 103/57 109/62 120/56 O2 Sat by Pulse 94 92 89 Oximetry O2 Sat by Pulse Oximetry [ Assessment] Constitutional: no acute distress, alert Neck: other (trach is midline) Ascultation: Bilateral: diminished breath sounds, rales Percussion: Bilateral: not dull Cardiovascular: regular rate and rhythm Gastrointestinal: soft, other (peg tubes) Extremities: no edema, pink and warm Neurologic: normal mental status CBC and BMP: 01/21/19 Unknown 01/21/19 Unknown ABG, PT/INR, D-dimer: ABG POC ABG pH 7.362 (7.35-7.45) 01/22/19 05:58 POC ABG pCO2 48.8 (35-45) H 01/22/19 05:58 POC ABG pO2 64 (80-105) L 01/22/19 05:58 POC ABG HCO3 27.7 (22-26 mml/L) 01/22/19 05:58 POC ABG Total CO2 29 (23-27mmol/L) 01/22/19 05:58 POC ABG O2 Sat 91 01/22/19 05:58 Abnormal lab findings: Abnormal Labs 01/21/19 01/21/19 01/21/19 03:49 03:57 09:40 RBC Hgb Hct MCV MCH RDW Lymph % (Auto) [place] % (Auto) Lymph # Seg Neutrophils % Seg Neutrophils # POC ABG pCO2 POC ABG pO2 57 L Carbon Dioxide BUN Glucose POC Glucose 135 H Calcium Magnesium AST Total Protein Albumin Urine WBC (Auto) 17.0 H 01/21/19 01/21/19 01/21/19 Unknown Unknown Unknown RBC 2.64 L Hgb 8.6 L Hct 26.7 L MCV 101 H MCH 33 H RDW 20.2 H Lymph % (Auto) 4.1 L [place] % (Auto) 8.3 H Lymph # 0.4 L Seg Neutrophils % 85.4 H Seg Neutrophils # 8.4 H POC ABG pCO2 POC ABG pO2 Carbon Dioxide 31 H BUN 21 H Glucose 104 H POC Glucose Calcium 8.2 L Magnesium 2.40 H AST 52 H Total Protein 5.8 L Albumin 2.8 L Urine WBC (Auto) 01/22/19 05:58 RBC Hgb Hct MCV MCH RDW Lymph % (Auto) [place] % (Auto) Lymph # Seg Neutrophils % Seg Neutrophils # POC ABG pCO2 48.8 H POC ABG pO2 64 L Carbon Dioxide BUN Glucose POC Glucose Calcium Magnesium AST Total Protein Albumin Urine WBC (Auto)
--- NOTE | 2019-01-22 12:11 | Progress Note ---
Assessment and Plan Assessment and plan: Septic shock -Probably secondary to UTI -On IV pressor with levophed, to be tapered off -On IV antibiotic with levofloxacin -Urine culture pending. Blood cultures negative so far. Acute on chronic respiratory failure with hypoxia -Status post tracheostomy on mechanical ventilator -Pulmonology following Acute toxic encephalopathy -Likely medication induced -Resolved -Head CT scan negative for acute findings. Stage IV breast cancer with metastases to the bone -Hospice recommended Bilateral pleural effusion -Likely malignant Anemia of chronic disease -H/H stable, will monitor Severe protein calorie malnutrition -Status post PEG tube placement on tube feeding -Nutrition following DVT prophylaxis with Lovenox Disposition: Patient's overall prognosis is very poor and hospice has been re commended. manager intensive care working on discharge planning to a residential facility Time spent: 37 minutes History Interval history: Pt complained of indigestion and abdominal pain. She is alert and oriented. She denied chest pain or shortness of breath. Hospitalist Physical - Constitutional Vitals: Temp Pulse Resp BP Pulse Ox 98.2 F 92 H 24 117/66 96 01/22/19 08:00 01/22/19 11:53 01/22/19 10:00 01/22/19 11:53 01/22/19 11:53 General appearance: Present: no acute distress - EENT Eyes: Present: PERRL, EOM intact ENT: hearing intact, clear oral mucosa, other (s/p trach) - Neck Neck: Present: supple - Respiratory Respiratory effort: normal Respiratory: bilateral: diminished - Cardiovascular Rhythm: regular (with tachycardia) Heart Sounds: Present: S1 & S2 - Extremities Extremities: No edema - Abdominal General gastrointestinal: soft, tender (mild generalized), normal bowel sounds - Integumentary Integumentary: Present: clear, warm, dry - Psychiatric Psychiatric: appropriate mood/affect - Neurologic Neurologic: moves all extremities Results - Labs CBC & Chem 7: 01/21/19 Unknown 01/21/19 Unknown Labs: Laboratory Last Values WBC 9.8 K/mm3 (4.5-11.0) 01/21/19 Unknown RBC 2.64 M/mm3 (3.65-5.03) L 01/21/19 Unknown Hgb 8.6 gm/dl (10.1-14.3) L 01/21/19 Unknown Hct 26.7 % (30.3-42.9) L 01/21/19 Unknown MCV 101 fl (79-97) H 01/21/19 Unknown MCH 33 pg (28-32) H 01/21/19 Unknown MCHC 32 % (30-34) 01/21/19 Unknown RDW 20.2 % (13.2-15.2) H 01/21/19 Unknown Plt Count 285 K/mm3 (140-440) 01/21/19 Unknown Lymph % (Auto) 4.1 % (13.4-35.0) L 01/21/19 Unknown [place] % (Auto) 8.3 % (0.0-7.3) H 01/21/19 Unknown Eos % (Auto) 1.5 % (0.0-4.3) 01/21/19 Unknown Baso % (Auto) 0.7 % (0.0-1.8) 01/21/19 Unknown Lymph # 0.4 K/mm3 (1.2-5.4) L 01/21/19 Unknown [place] # 0.8 K/mm3 (0.0-0.8) 01/21/19 Unknown Eos # 0.1 K/mm3 (0.0-0.4) 01/21/19 Unknown Baso # 0.1 K/mm3 (0.0-0.1) 01/21/19 Unknown Seg Neutrophils % 85.4 % (40.0-70.0) H 01/21/19 Unknown Seg Neutrophils # 8.4 K/mm3 (1.8-7.7) H 01/21/19 Unknown POC ABG pH 7.362 (7.35-7.45) 01/22/19 05:58 POC ABG pCO2 48.8 (35-45) H 01/22/19 05:58 POC ABG pO2 64 (80-105) L 01/22/19 05:58 POC ABG HCO3 27.7 (22-26 mml/L) 01/22/19 05:58 POC ABG Total CO2 29 (23-27mmol/L) 01/22/19 05:58 POC ABG O2 Sat 91 01/22/19 05:58 POC ABG Base Excess 2 ((-2) - (+3)mmol/L) 01/22/19 05:58 VBG pH 7.344 (7.320-7.420) 01/21/19 06:55 50 % 01/22/19 05:58 Sodium 138 mmol/L (137-145) 01/21/19 Unknown Potassium 4.0 mmol/L (3.6-5.0) 01/21/19 Unknown Chloride 98.0 mmol/L (98-107) 01/21/19 Unknown Carbon Dioxide 31 mmol/L (22-30) H 01/21/19 Unknown 13 mmol/L 01/21/19 Unknown BUN 21 mg/dL (7-17) H 01/21/19 Unknown 0.8 mg/dL (0.7-1.2) 01/21/19 Unknown Estimated GFR > 60 ml/min 01/21/19 Unknown 26 % 01/21/19 Unknown Glucose 104 mg/dL (65-100) H 01/21/19 Unknown POC Glucose 135 (70-105) H 01/21/19 09:40 Lactic Acid 1.90 mmol/L (0.7-2.0) 01/21/19 Unknown Calcium 8.2 mg/dL (8.4-10.2) L 01/21/19 Unknown Magnesium 2.40 mg/dL (1.7-2.3) H 01/21/19 Unknown 0.20 mg/dL (0.1-1.2) 01/21/19 Unknown AST 52 units/L (5-40) H 01/21/19 Unknown ALT 19 units/L (7-56) 01/21/19 Unknown 92 units/L (35-129) 01/21/19 Unknown 0.027 ng/mL (0.00-0.029) 01/21/19 Unknown 5.8 g/dL (6.3-8.2) L 01/21/19 Unknown 2.8 g/dL (3.9-5) L 01/21/19 Unknown 0.9 % 01/21/19 Unknown Yellow (Yellow) 01/21/19 03:49 Slightly-cloudy (Clear) 01/21/19 03:49 5.0 (5.0-7.0) 01/21/19 03:49 Ur Specific [place] 1.016 (1.003-1.030) 01/21/19 03:49 30 mg/dl mg/dL (Negative) 01/21/19 03:49 Neg mg/dL (Negative) 01/21/19 03:49 Tr mg/dL (Negative) 01/21/19 03:49 Neg (Negative) 01/21/19 03:49 Neg (Negative) 01/21/19 03:49 Neg (Negative) 01/21/19 03:49 < 2.0 mg/dL (<2.0) 01/21/19 03:49 Ur Leukocyte Esterase Sm (Negative) 01/21/19 03:49 17.0 /HPF (0.0-6.0) H 01/21/19 03:49 4.0 /HPF (0.0-6.0) 01/21/19 03:49 U Epithel Cells (Auto) 1.0 /HPF (0-13.0) 01/21/19 03:49 Few /HPF 01/21/19 03:49 Hyaline Casts 3 /LPF 01/21/19 03:49 Granular Casts 1 /LPF 01/21/19 03:49 Few /HPF 01/21/19 03:49 3+ /HPF 01/21/19 03:49 Active Medications - Current Medications Current Medications: Generic Name Dose Route Start Last Admin Trade Name Freq PRN Reason Stop Dose Admin Acetaminophen 650 mg 01/21/19 05:25 01/21/19 19:02 Tylenol PO 650 mg Q4H PRN Administration Pain MILD(1-3)/Fever >100.5/SPRING Albuterol 2.5 mg 01/21/19 05:25 Proventil IH Q3HRT PRN Shortness Of Breath Lipase/Protease/Amylase 1 each 01/21/19 15:[address] 10,500 Unit FEEDTUBE PRN PRN For Clogged Feeding Tube Guaifenesin 10 ml 01/21/19 06:05 Guaifenesin Dm Syrup PO Q4H PRN Cough Hydromorphone HCl 0.5 mg 01/21/19 05:25 01/22/19 08:24 Dilaudid IV 0.5 mg Q3H PRN Administration Pain , Severe (7-10) Morphine Sulfate 2 mg 01/21/19 05:25 01/22/19 11:50 Morphine IV 2 mg Q4H PRN Administration Pain, Moderate (4-6) Ondansetron HCl 4 mg 01/21/19 05:25 Zofran IV Q8H PRN Nausea And Vomiting Simethicone 80 mg 01/22/19 12:00 Mylicon PO Q6H PRN Gas pain Simple Syrup 15 ml 01/21/19 15:02 Simple Syrup FEEDTUBE PRN PRN Hypoglycemia Simple Syrup 30 ml 01/21/19 15:02 Simple Syrup FEEDTUBE PRN PRN Hypoglycemia Sodium Bicarbonate 325 mg 01/21/19 15:02 Sodium Bicarbonate FEEDTUBE PRN PRN For Clogged Feeding Tube Sodium Chloride 10 ml 01/21/19 10:00 01/22/19 11:50 Sodium Chloride Flush Syringe 10 Ml IV 10 ml BID LUPIS Administration Sodium Chloride 10 ml 01/21/19 05:25 Sodium Chloride Flush Syringe 10 Ml IV PRN PRN LINE FLUSH Nutrition/Malnutrition Assess - Dietary Evaluation Nutrition/Malnutrition Findings: Nutrition Notes Start: 01/21/19 13:38 Freq: Status: Active Protocol: Document 01/21/19 13:38 TONE (Rec: 01/21/19 13:50 TONE [email or web address]) Nutrition Notes Need for Assessment generated from: MD Order Initial or Follow up Assessment Current Diagnosis Sepsis,Respiratory Failure Other Pertinent Diagnosis AMS, Metastatic breast CA, UTI Current Diet No diet ordered Labs/Tests reviewed Pertinent Medications Levophed gtt Height 5 ft 5 in Weight 72.575 kg [place] Body Weight (kg) 56.81 BMI 26.6 Subjective/Other Information RD consulted for malnutrition and TF; pt also screened for hx of receiving NTR support. Pt from inpatient hospice; has trach and PEG and on vent support. She also has a (R) chest tube. says not necessary for RD to see pt; just wants generic TF formula. Burn Absent Trauma Absent #1 Nutrition Diagnosis Inadequate oral intake Etiology [facility] ventilation As Evidenced by Signs and Symptoms pt NPO Is patient on ventilator? Yes Is Patient Ambulatory and/or Out of Bed No [facility] [phone] Calculation Used for Recommendations [facility] Additional Notes Pro needs 1.2-2g/k-145g/ day Fluid needs 1ml/kcal Nutrition Intervention Nutrition Support: Osmolite 1.5 at 45ml/hr with 150ml water flush q4h. Kcal 1,620 Protein (gm) 68 Fluid (mL) 823 Goal #1 TF tolerance Goal #2 TF at goal rate to meet at least 75% energy and pro needs Anticipated Discharge Needs: Continue TF Follow-Up By: 01/28/19 Additional Comments F/U: stable TF, wt
[2019-01-22] MEDS ORDERED: PROTONIX PO SCH (13:00)
[2019-01-22] MEDS: LOVENOX SUB-Q SCH (13:23)
[2019-01-22] MEDS: PREVACID SOLUTAB FEEDTUBE SCH (13:24)
[2019-01-22] MEDS: MYLICON PO PRN (13:24)
[2019-01-22] MEDS: TYLENOL PO PRN (15:00)
[2019-01-22] MEDS: PERCOCET 5/325 PO PRN (20:52)
[2019-01-23] MEDS: DILAUDID IV PRN ×2 (02:14→21:21)
[2019-01-23 05:12] LABS: Basophils % (Auto) 0.3 % (0.0-1.8); Eosinophils # (Auto) 0.2 K/mm3 (0.0-0.4); Eosinophils % (Auto) 2.3 % (0.0-4.3); Hemoglobin 8.3 gm/dl (10.1-14.3); Lymphocytes # (Auto) 0.6 K/mm3 (1.2-5.4); Lymphocytes % (Auto) 6.7 % (13.4-35.0); Mean Corpuscular HGB Conc 32 % (30-34); Mean Corpuscular Volume 103 fl (79-97); Monocytes # (Auto) 0.8 K/mm3 (0.0-0.8); Platelet Count 238 K/mm3 (140-440); Red Blood Count 2.53 M/mm3 (3.65-5.03)
[2019-01-23 05:15] LABS: Red Cell Distribution Width 20.3 % (13.2-15.2)
[2019-01-23 05:20] LABS: BUN/Creatinine Ratio 25; Blood Urea Nitrogen 10 mg/dL (7-17); Calcium 7.6 mg/dL (8.4-10.2); Hemolysis Index 8
[2019-01-23] MEDS: PERCOCET 5/325 PO PRN ×3 (10:00→18:45)
[2019-01-23] MEDS: SODIUM CHLORIDE FLUSH SYRINGE 10 ML IV SCH ×2 (10:05→21:24)
[2019-01-23] MEDS: PREVACID SOLUTAB FEEDTUBE SCH (10:05)
[2019-01-23] MEDS: LOVENOX SUB-Q SCH (10:05)
--- NOTE | 2019-01-23 11:05 | Progress Note ---
Assessment and Plan Assessment and plan: Septic shock -Probably secondary to UTI -Off IV pressor -On IV antibiotic with levofloxacin -Urine and blood cultures negative so far. Acute on chronic respiratory failure with hypoxia -Status post tracheostomy on mechanical ventilator -Pulmonology following Acute toxic encephalopathy -Likely medication induced -Resolved -Head CT scan negative for acute findings. Stage IV breast cancer with metastases to the bone -Hospice recommended Bilateral pleural effusion -Likely malignant -s/p bilateral pleural catheter placement for drainage -LT catheter removed, RT remains in place Anemia of chronic disease -H/H stable, will monitor Severe protein calorie malnutrition -Status post PEG tube placement on tube feeding -Nutrition following DVT prophylaxis with Lovenox Disposition: Patient's overall prognosis is very poor and hospice has been recommended. maintenance and engineering manager working on discharge planning to a halfway facility Time spent: 35 minutes History Interval history: Patient complained of generalized abdominal pain. She denies chest pain or shortness of breath. Overnight, she was anxious per her nurse. Hospitalist Physical - Constitutional Vitals: Temp Pulse Resp BP Pulse Ox 98.4 F 90 41 H 142/75 95 01/23/19 08:00 01/23/19 10:47 01/23/19 08:01 01/23/19 10:47 01/23/19 10:47 General appearance: Present: mild distress, other (appears anxious) - EENT Eyes: Present: PERRL, EOM intact ENT: hearing intact, clear oral mucosa - Neck Neck: Present: supple, other (s/p trach on MV) - Respiratory Respiratory effort: labored Respiratory: bilateral: diminished (RT pleural catheter in place) - Cardiovascular Rhythm: regular Heart Sounds: Present: S1 & S2 - Extremities Extremity abnormal: edema (UE) - Abdominal General gastrointestinal: soft, tender (mild and generalized), normal bowel sounds - Integumentary Integumentary: Present: clear, warm, dry - Psychiatric Psychiatric: agitated - Neurologic Neurologic: moves all extremities Results - Labs CBC & Chem 7: 01/23/19 04:05 01/23/19 04:05 Labs: Laboratory Last Values WBC 8.5 K/mm3 (4.5-11.0) 01/23/19 04:05 RBC 2.53 M/mm3 (3.65-5.03) L 01/23/19 04:05 Hgb 8.3 gm/dl (10.1-14.3) L 01/23/19 04:05 Hct 26.0 % (30.3-42.9) L 01/23/19 04:05 MCV 103 fl (79-97) H 01/23/19 04:05 MCH 33 pg (28-32) H 01/23/19 04:05 MCHC 32 % (30-34) 01/23/19 04:05 RDW 20.3 % (13.2-15.2) H 01/23/19 04:05 Plt Count 238 K/mm3 (140-440) 01/23/19 04:05 Lymph % (Auto) 6.7 % (13.4-35.0) L 01/23/19 04:05 [place] % (Auto) 10.0 % (0.0-7.3) H 01/23/19 04:05 Eos % (Auto) 2.3 % (0.0-4.3) 01/23/19 04:05 Baso % (Auto) 0.3 % (0.0-1.8) 01/23/19 04:05 Lymph # 0.6 K/mm3 (1.2-5.4) L 01/23/19 04:05 [place] # 0.8 K/mm3 (0.0-0.8) 01/23/19 04:05 Eos # 0.2 K/mm3 (0.0-0.4) 01/23/19 04:05 Baso # 0.0 K/mm3 (0.0-0.1) 01/23/19 04:05 Seg Neutrophils % 80.7 % (40.0-70.0) H 01/23/19 04:05 Seg Neutrophils # 6.8 K/mm3 (1.8-7.7) 01/23/19 04:05 POC ABG pH 7.365 (7.35-7.45) 01/23/19 03:58 POC ABG pCO2 50.4 (35-45) H 01/23/19 03:58 POC ABG pO2 62 (80-105) L 01/23/19 03:58 POC ABG HCO3 28.9 (22-26 mml/L) 01/23/19 03:58 POC ABG Total CO2 30 (23-27mmol/L) 01/23/19 03:58 POC ABG O2 Sat 90 01/23/19 03:58 POC ABG Base Excess 3 ((-2) - (+3)mmol/L) 01/23/19 03:58 VBG pH 7.344 (7.320-7.420) 01/21/19 06:55 40 % 01/23/19 03:58 Sodium 140 mmol/L (137-145) 01/23/19 04:05 Potassium 3.9 mmol/L (3.6-5.0) 01/23/19 04:05 Chloride 101.8 mmol/L (98-107) 01/23/19 04:05 Carbon Dioxide 27 mmol/L (22-30) 01/23/19 04:05 15 mmol/L 01/23/19 04:05 BUN 10 mg/dL (7-17) 01/23/19 04:05 0.4 mg/dL (0.7-1.2) L 01/23/19 04:05 Estimated GFR > 60 ml/min 01/23/19 04:05 25 % 01/23/19 04:05 Glucose 127 mg/dL (65-100) H 01/23/19 04:05 POC Glucose 135 (70-105) H 01/21/19 09:40 Lactic Acid 1.90 mmol/L (0.7-2.0) 01/21/19 Unknown Calcium 7.6 mg/dL (8.4-10.2) L 01/23/19 04:05 Magnesium 2.40 mg/dL (1.7-2.3) H 01/21/19 Unknown 0.20 mg/dL (0.1-1.2) 01/21/19 Unknown AST 52 units/L (5-40) H 01/21/19 Unknown ALT 19 units/L (7-56) 01/21/19 Unknown 92 units/L (35-129) 01/21/19 Unknown 0.027 ng/mL (0.00-0.029) 01/21/19 Unknown 5.8 g/dL (6.3-8.2) L 01/21/19 Unknown 2.8 g/dL (3.9-5) L 01/21/19 Unknown 0.9 % 01/21/19 Unknown Yellow (Yellow) 01/21/19 03:49 Slightly-cloudy (Clear) 01/21/19 03:49 5.0 (5.0-7.0) 01/21/19 03:49 Ur Specific [place] 1.016 (1.003-1.030) 01/21/19 03:49 30 mg/dl mg/dL (Negative) 01/21/19 03:49 Neg mg/dL (Negative) 01/21/19 03:49 Tr mg/dL (Negative) 01/21/19 03:49 Neg (Negative) 01/21/19 03:49 Neg (Negative) 01/21/19 03:49 Neg (Negative) 01/21/19 03:49 < 2.0 mg/dL (<2.0) 01/21/19 03:49 Ur Leukocyte Esterase Sm (Negative) 01/21/19 03:49 17.0 /HPF (0.0-6.0) H 01/21/19 03:49 4.0 /HPF (0.0-6.0) 01/21/19 03:49 U Epithel Cells (Auto) 1.0 /HPF (0-13.0) 01/21/19 03:49 Few /HPF 01/21/19 03:49 Hyaline Casts 3 /LPF 01/21/19 03:49 Granular Casts 1 /LPF 01/21/19 03:49 Few /HPF 01/21/19 03:49 3+ /HPF 01/21/19 03:49 Active Medications - Current Medications Current Medications: Generic Name Dose Route Start Last Admin Trade Name Freq PRN Reason Stop Dose Admin Acetaminophen 650 mg 01/21/19 05:25 01/22/19 15:00 Tylenol PO 650 mg Q4H PRN Administration Pain MILD(1-3)/Fever >100.5/SPRING Albuterol 2.5 mg 01/21/19 05:25 Proventil IH Q3HRT PRN Shortness Of Breath Lipase/Protease/Amylase 1 each 01/21/19 15:[address] 10,500 Unit FEEDTUBE PRN PRN For Clogged Feeding Tube Enoxaparin Sodium 40 mg 01/22/19 13:00 01/23/19 10:05 Lovenox SUB-Q 40 mg DAILY LUPIS Administration Guaifenesin 10 ml 01/21/19 06:05 Guaifenesin Dm Syrup PO Q4H PRN Cough Hydromorphone HCl 0.5 mg 01/21/19 05:25 01/23/19 02:14 Dilaudid IV 0.5 mg Q3H PRN Administration Pain , Severe (7-10) Lansoprazole 30 mg 01/22/19 13:00 01/23/19 10:05 Prevacid Solutab FEEDTUBE 30 mg QDAY LUPIS Administration Ondansetron HCl 4 mg 01/21/19 05:25 Zofran IV Q8H PRN Nausea And Vomiting Oxycodone/Acetaminophen 2 tab 01/22/19 20:25 01/23/19 10:00 Percocet 5/325 PO 2 tab Q4H PRN Administration Pain, Moderate (4-6) Simethicone 80 mg 01/22/19 12:00 01/22/19 13:24 Mylicon PO 80 mg Q6H PRN Administration Gas pain Simple Syrup 15 ml 01/21/19 15:02 Simple Syrup FEEDTUBE PRN PRN Hypoglycemia Simple Syrup 30 ml 01/21/19 15:02 Simple Syrup FEEDTUBE PRN PRN Hypoglycemia Sodium Bicarbonate 325 mg 01/21/19 15:02 Sodium Bicarbonate FEEDTUBE PRN PRN For Clogged Feeding Tube Sodium Chloride 10 ml 01/21/19 10:00 01/23/19 10:05 Sodium Chloride Flush Syringe 10 Ml IV 10 ml BID LUPIS Administration Sodium Chloride 10 ml 01/21/19 05:25 Sodium Chloride Flush Syringe 10 Ml IV PRN PRN LINE FLUSH Nutrition/Malnutrition Assess - Dietary Evaluation Nutrition/Malnutrition Findings: Nutrition Notes Start: 01/21/19 13:38 Freq: Status: Active Protocol: Document 01/21/19 13:38 TONE (Rec: 01/21/19 13:50 TONE [email or web address]) Nutrition Notes Need for Assessment generated from: MD Order Initial or Follow up Assessment Current Diagnosis Sepsis,Respiratory Failure Other Pertinent Diagnosis AMS, Metastatic breast CA, UTI Current Diet No diet ordered Labs/Tests reviewed Pertinent Medications Levophed gtt Height 5 ft 5 in Weight 72.575 kg [place] Body Weight (kg) 56.81 BMI 26.6 Subjective/Other Information RD consulted for malnutrition and TF; pt also screened for hx of receiving NTR support. Pt from inpatient hospice; has trach and PEG and on vent support. She also has a (R) chest tube. says not necessary for RD to see pt; just wants generic TF formula. Burn Absent Trauma Absent #1 Nutrition Diagnosis Inadequate oral intake Etiology mech ventilation As Evidenced by Signs and Symptoms pt NPO Is patient on ventilator? Yes Is Patient Ambulatory and/or Out of Bed No REE-([facility]-confined to bed) 4711.826 Calculation Used for Recommendations [facility] Additional Notes Pro needs 1.2-2g/k-145g/ day Fluid needs 1ml/kcal Nutrition Intervention Nutrition Support: Osmolite 1.5 at 45ml/hr with 150ml water flush q4h. Kcal 1,620 Protein (gm) 68 Fluid (mL) 823 Goal #1 TF tolerance Goal #2 TF at goal rate to meet at least 75% energy and pro needs Anticipated Discharge Needs: Continue TF Follow-Up By: 01/28/19 Additional Comments F/U: stable TF, wt
--- NOTE | 2019-01-23 14:18 | Progress Note ---
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 1. Patient does not have chest tube. It is a pleurx catheter that cannot be removed by myself. It would need to be removed by IR 2. Of note patient is not on abx therapy anymore 3. Patient has failed PSV 2 days in a row 4. Overall prognosis remains poor. Trach is fresh and was placed at [facility] a few weeks ago based on history from daughter. At this point, given history she is likely vent dependent and will not be able to be weaned. Hopeful facility will take her with pleurx. CCT 31 minutes. Subjective Date of service: 01/23/19 Interval history: No acute events. Long discussion yesterday on phone with daughter. Patient was diagnosed 4 years ago with Stage IV breast CA. She has had bilateral pleurx's in the past, both removed secondary to not draining and now most recently the right one was replaced secondary to recurrent malignant effusion. Facility in [place] would take patient without chest tube. This is not a chest tube. Objective Vital Signs - 12hr 01/23/19 01/23/19 01/23/19 03:00 03:36 04:00 Temperature 98.7 F Pulse Rate 86 95 H 94 H Pulse Rate [ 86 From Monitor] Respiratory 20 Rate Blood Pressure 103/51 103/51 O2 Sat by Pulse 95 95 93 Oximetry O2 Sat by Pulse Oximetry [ Assessment] 01/23/19 01/23/19 01/23/19 04:01 05:00 06:00 Temperature Pulse Rate 96 H 86 110 H Pulse Rate [ From Monitor] Respiratory 22 14 28 H Rate Blood Pressure 92/59 120/63 119/87 O2 Sat by Pulse 95 96 93 Oximetry O2 Sat by Pulse Oximetry [ Assessment] 01/23/19 01/23/19 01/23/19 07:00 07:33 07:37 Temperature Pulse Rate 88 104 H Pulse Rate [ From Monitor] Respiratory 19 Rate Blood Pressure 130/72 130/72 O2 Sat by Pulse 94 95 Oximetry O2 Sat by Pulse 94 Oximetry [ Assessment] 01/23/19 01/23/19 01/23/19 07:45 08:00 08:01 Temperature 98.4 F Pulse Rate 101 H 106 H 105 H Pulse Rate [ 106 H From Monitor] Respiratory 36 H 41 H Rate Blood Pressure 130/72 144/88 O2 Sat by Pulse 94 93 93 Oximetry O2 Sat by Pulse Oximetry [ Assessment] 01/23/19 01/23/19 01/23/19 09:01 10:01 10:47 Temperature Pulse Rate 99 H 90 Pulse Rate [ From Monitor] Respiratory 38 H Rate Blood Pressure 119/64 142/75 142/75 O2 Sat by Pulse 92 95 95 Oximetry O2 Sat by Pulse Oximetry [ Assessment] 01/23/19 01/23/19 01/23/19 11:01 11:51 12:00 Temperature 98.4 F Pulse Rate 86 104 H 79 Pulse Rate [ 79 From Monitor] Respiratory 18 18 Rate Blood Pressure 124/61 124/61 O2 Sat by Pulse 93 94 93 Oximetry O2 Sat by Pulse Oximetry [ Assessment] 01/23/19 01/23/19 01/23/19 12:01 13:00 14:00 Temperature Pulse Rate 101 H 81 98 H Pulse Rate [ From Monitor] Respiratory 27 H 18 19 Rate Blood Pressure 126/54 126/64 106/84 O2 Sat by Pulse 94 96 96 Oximetry O2 Sat by Pulse Oximetry [ Assessment] 01/23/19 14:10 Temperature Pulse Rate Pulse Rate [ From Monitor] Respiratory 25 H Rate Blood Pressure O2 Sat by Pulse Oximetry O2 Sat by Pulse Oximetry [ Assessment] Constitutional: no acute distress, alert Neck: other (trach is midline) Ascultation: Bilateral: diminished breath sounds, rales Percussion: Bilateral: not dull Cardiovascular: regular rate and rhythm Gastrointestinal: soft, other (peg tubes) Extremities: no edema, pink and warm Neurologic: normal mental status CBC and BMP: 01/23/19 04:05 01/23/19 04:05 ABG, PT/INR, D-dimer: ABG POC ABG pH 7.365 (7.35-7.45) 01/23/19 03:58 POC ABG pCO2 50.4 (35-45) H 01/23/19 03:58 POC ABG pO2 62 (80-105) L 01/23/19 03:58 POC ABG HCO3 28.9 (22-26 mml/L) 01/23/19 03:58 POC ABG Total CO2 30 (23-27mmol/L) 01/23/19 03:58 POC ABG O2 Sat 90 01/23/19 03:58 Abnormal lab findings: Abnormal Labs 01/21/19 01/21/19 01/21/19 03:49 03:57 09:40 RBC Hgb Hct MCV MCH RDW Lymph % (Auto) [place] % (Auto) Lymph # Seg Neutrophils % Seg Neutrophils # POC ABG pCO2 POC ABG pO2 57 L Carbon Dioxide BUN Creatinine Glucose POC Glucose 135 H Calcium Magnesium AST Total Protein Albumin Urine WBC (Auto) 17.0 H 01/21/19 01/21/19 01/21/19 Unknown Unknown Unknown RBC 2.64 L Hgb 8.6 L Hct 26.7 L MCV 101 H MCH 33 H RDW 20.2 H Lymph % (Auto) 4.1 L [place] % (Auto) 8.3 H Lymph # 0.4 L Seg Neutrophils % 85.4 H Seg Neutrophils # 8.4 H POC ABG pCO2 POC ABG pO2 Carbon Dioxide 31 H BUN 21 H Creatinine Glucose 104 H POC Glucose Calcium 8.2 L Magnesium 2.40 H AST 52 H Total Protein 5.8 L Albumin 2.8 L Urine WBC (Auto) 01/22/19 01/23/19 01/23/19 05:58 03:58 04:05 RBC 2.53 L Hgb 8.3 L Hct 26.0 L MCV 103 H MCH 33 H RDW 20.3 H Lymph % (Auto) 6.7 L [place] % (Auto) 10.0 H Lymph # 0.6 L Seg Neutrophils % 80.7 H Seg Neutrophils # POC ABG pCO2 48.8 H 50.4 H POC ABG pO2 64 L 62 L Carbon Dioxide BUN Creatinine Glucose POC Glucose Calcium Magnesium AST Total Protein Albumin Urine WBC (Auto) 01/23/19 04:05 RBC Hgb Hct MCV MCH RDW Lymph % (Auto) [place] % (Auto) Lymph # Seg Neutrophils % Seg Neutrophils # POC ABG pCO2 POC ABG pO2 Carbon Dioxide BUN Creatinine 0.4 L Glucose 127 H POC Glucose Calcium 7.6 L Magnesium AST Total Protein Albumin Urine WBC (Auto)
[2019-01-24] MEDS: PERCOCET 5/325 PO PRN ×4 (00:41→21:01)
[2019-01-24] MEDS: DILAUDID IV PRN ×5 (01:13→19:48)
[2019-01-24 05:57] LABS: BUN/Creatinine Ratio 25; Blood Urea Nitrogen 10 mg/dL (7-17); Calcium 7.9 mg/dL (8.4-10.2); Hemolysis Index 20
[2019-01-24] MEDS ORDERED: DURAGESIC TD SCH ×2 (09:00→10:00)
[2019-01-24] MEDS ORDERED: METOPROLOL TARTRATE PO SCH (10:00)
[2019-01-24] MEDS ORDERED: NON-FORMULARY (Metoprolol Tartrate 12.5 MG) PO SCH (10:00)
[2019-01-24] MEDS: LYRICA PO SCH (10:05)
[2019-01-24] MEDS: LOPRESSOR PO SCH ×2 (10:34→21:54)
[2019-01-24] MEDS: PREVACID SOLUTAB FEEDTUBE SCH (10:34)
[2019-01-24] MEDS: LOVENOX SUB-Q SCH (10:35)
--- NOTE | 2019-01-24 12:11 | Progress Note ---
Assessment and Plan Assessment and plan: Septic shock -Probably secondary to UTI, now resolved -Off IV pressor and antibiotic -Urine and blood cultures negative so far. Acute on chronic respiratory failure with hypoxia, resolved -Status post tracheostomy on mechanical ventilator -Pulmonology following Acute toxic encephalopathy -Likely medication induced -Resolved -Head CT scan negative for acute findings. Stage IV breast cancer with metastases to the bone -Hospice recommended -Continue pain management. Bilateral pleural effusion -Likely malignant -s/p bilateral pleural catheter placement for drainage -LT catheter removed, RT remains in place and draining Anemia of chronic disease -H/H stable History of hypertension -Blood pressure trending up, home Lopressor resumed, will monitor Severe protein calorie malnutrition -Status post PEG tube placement on tube feeding -Nutrition following DVT prophylaxis with Lovenox Disposition: Patient's overall prognosis is very poor and hospice has been recommended. Pt is at her baseline. 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 Time spent: 35 minutes History Interval history: Pt has no new complaints and no new reported issues overnight. She denies chest pain or sob. Hospitalist Physical - Constitutional Vitals: Temp Pulse Resp BP Pulse Ox 98.0 F 88 15 151/75 96 01/24/19 07:55 01/24/19 10:34 01/24/19 10:01 01/24/19 10:34 01/24/19 10:01 General appearance: Present: no acute distress - EENT Eyes: Present: PERRL, EOM intact ENT: hearing intact, clear oral mucosa - Neck Neck: Present: supple, other (s/p trach on MV) - Respiratory Respiratory effort: normal Respiratory: bilateral: diminished - Cardiovascular Rhythm: regular Heart Sounds: Present: S1 & S2 - Extremities Extremity abnormal: edema (BUE) - Abdominal General gastrointestinal: soft, tender (Mild and generalized), normal bowel sounds - Integumentary Integumentary: Present: clear, warm, dry - Psychiatric Psychiatric: appropriate mood/affect - Neurologic Neurologic: moves all extremities Results - Labs CBC & Chem 7: 01/23/19 04:05 01/24/19 04:29 Labs: Laboratory Last Values WBC 8.5 K/mm3 (4.5-11.0) 01/23/19 04:05 RBC 2.53 M/mm3 (3.65-5.03) L 01/23/19 04:05 Hgb 8.3 gm/dl (10.1-14.3) L 01/23/19 04:05 Hct 26.0 % (30.3-42.9) L 01/23/19 04:05 MCV 103 fl (79-97) H 01/23/19 04:05 MCH 33 pg (28-32) H 01/23/19 04:05 MCHC 32 % (30-34) 01/23/19 04:05 RDW 20.3 % (13.2-15.2) H 01/23/19 04:05 Plt Count 238 K/mm3 (140-440) 01/23/19 04:05 Lymph % (Auto) 6.7 % (13.4-35.0) L 01/23/19 04:05 [place] % (Auto) 10.0 % (0.0-7.3) H 01/23/19 04:05 Eos % (Auto) 2.3 % (0.0-4.3) 01/23/19 04:05 Baso % (Auto) 0.3 % (0.0-1.8) 01/23/19 04:05 Lymph # 0.6 K/mm3 (1.2-5.4) L 01/23/19 04:05 [place] # 0.8 K/mm3 (0.0-0.8) 01/23/19 04:05 Eos # 0.2 K/mm3 (0.0-0.4) 01/23/19 04:05 Baso # 0.0 K/mm3 (0.0-0.1) 01/23/19 04:05 Seg Neutrophils % 80.7 % (40.0-70.0) H 01/23/19 04:05 Seg Neutrophils # 6.8 K/mm3 (1.8-7.7) 01/23/19 04:05 POC ABG pH 7.390 (7.35-7.45) 01/24/19 04:34 POC ABG pCO2 48.6 (35-45) H 01/24/19 04:34 POC ABG pO2 65 (80-105) L 01/24/19 04:34 POC ABG HCO3 29.5 (22-26 mml/L) 01/24/19 04:34 POC ABG Total CO2 31 (23-27mmol/L) 01/24/19 04:34 POC ABG O2 Sat 92 01/24/19 04:34 POC ABG Base Excess 5 ((-2) - (+3)mmol/L) 01/24/19 04:34 VBG pH 7.344 (7.320-7.420) 01/21/19 06:55 40 % 01/24/19 04:34 Sodium 138 mmol/L (137-145) 01/24/19 04:29 Potassium 4.0 mmol/L (3.6-5.0) 01/24/19 04:29 Chloride 99.7 mmol/L (98-107) 01/24/19 04:29 Carbon Dioxide 28 mmol/L (22-30) 01/24/19 04:29 14 mmol/L 01/24/19 04:29 BUN 10 mg/dL (7-17) 01/24/19 04:29 0.4 mg/dL (0.7-1.2) L 01/24/19 04:29 Estimated GFR > 60 ml/min 01/24/19 04:29 25 % 01/24/19 04:29 Glucose 114 mg/dL (65-100) H 01/24/19 04:29 POC Glucose 135 (70-105) H 01/21/19 09:40 Lactic Acid 1.90 mmol/L (0.7-2.0) 01/21/19 Unknown Calcium 7.9 mg/dL (8.4-10.2) L 01/24/19 04:29 Magnesium 2.40 mg/dL (1.7-2.3) H 01/21/19 Unknown 0.20 mg/dL (0.1-1.2) 01/21/19 Unknown AST 52 units/L (5-40) H 01/21/19 Unknown ALT 19 units/L (7-56) 01/21/19 Unknown 92 units/L (35-129) 01/21/19 Unknown 0.027 ng/mL (0.00-0.029) 01/21/19 Unknown 5.8 g/dL (6.3-8.2) L 01/21/19 Unknown 2.8 g/dL (3.9-5) L 01/21/19 Unknown 0.9 % 01/21/19 Unknown Yellow (Yellow) 01/21/19 03:49 Slightly-cloudy (Clear) 01/21/19 03:49 5.0 (5.0-7.0) 01/21/19 03:49 Ur Specific [place] 1.016 (1.003-1.030) 01/21/19 03:49 30 mg/dl mg/dL (Negative) 01/21/19 03:49 Neg mg/dL (Negative) 01/21/19 03:49 Tr mg/dL (Negative) 01/21/19 03:49 Neg (Negative) 01/21/19 03:49 Neg (Negative) 01/21/19 03:49 Neg (Negative) 01/21/19 03:49 < 2.0 mg/dL (<2.0) 01/21/19 03:49 Ur Leukocyte Esterase Sm (Negative) 01/21/19 03:49 17.0 /HPF (0.0-6.0) H 01/21/19 03:49 4.0 /HPF (0.0-6.0) 01/21/19 03:49 U Epithel Cells (Auto) 1.0 /HPF (0-13.0) 01/21/19 03:49 Few /HPF 01/21/19 03:49 Hyaline Casts 3 /LPF 01/21/19 03:49 Granular Casts 1 /LPF 01/21/19 03:49 Few /HPF 01/21/19 03:49 3+ /HPF 01/21/19 03:49 Active Medications - Current Medications Current Medications: Generic Name Dose Route Start Last Admin Trade Name Freq PRN Reason Stop Dose Admin Acetaminophen 650 mg 01/21/19 05:25 01/22/19 15:00 Tylenol PO 650 mg Q4H PRN Administration Pain MILD(1-3)/Fever >100.5/SPRING Albuterol 2.5 mg 01/21/19 05:25 Proventil IH Q3HRT PRN Shortness Of Breath Lipase/Protease/Amylase 1 each 01/21/19 15:02 Pancreaze 10,500 Unit FEEDTUBE PRN PRN For Clogged Feeding Tube Diphenhydramine HCl 25 mg 01/24/19 08:15 Benadryl PO QHS PRN Insomnia Enoxaparin Sodium 40 mg 01/22/19 13:00 01/24/19 10:35 Lovenox SUB-Q 40 mg DAILY LUPIS Administration Fentanyl 50 mcg 01/24/19 10:00 01/24/19 09:07 Duragesic TD 50 mcg Q3D LUPIS Administration Guaifenesin 10 ml 01/21/19 06:05 Guaifenesin Dm Syrup PO Q4H PRN Cough Hydromorphone HCl 0.5 mg 01/21/19 05:25 01/24/19 09:05 Dilaudid IV 0.5 mg Q3H PRN Administration Pain , Severe (7-10) Lansoprazole 30 mg 01/22/19 13:00 01/24/19 10:34 Prevacid Solutab FEEDTUBE 30 mg QDAY LUPIS Administration Metoprolol Tartrate 12.5 mg 01/24/19 10:00 01/24/19 10:34 Lopressor PO 12.5 mg BID LUPIS Administration Ondansetron HCl 4 mg 01/21/19 05:25 Zofran IV Q8H PRN Nausea And Vomiting Oxycodone/Acetaminophen 2 tab 01/22/19 20:25 01/24/19 10:25 Percocet 5/325 PO 2 tab Q4H PRN Administration Pain, Moderate (4-6) Pregabalin 150 mg 01/24/19 10:00 Lyrica PO QDAY LUPIS Simethicone 80 mg 01/22/19 12:00 01/22/19 13:24 Mylicon PO 80 mg Q6H PRN Administration Gas pain Simple Syrup 15 ml 01/21/19 15:02 Simple Syrup FEEDTUBE PRN PRN Hypoglycemia Simple Syrup 30 ml 01/21/19 15:02 Simple Syrup FEEDTUBE PRN PRN Hypoglycemia Sodium Bicarbonate 325 mg 01/21/19 15:02 Sodium Bicarbonate FEEDTUBE PRN PRN For Clogged Feeding Tube Sodium Chloride 10 ml 01/21/19 10:00 01/23/19 21:24 Sodium Chloride Flush Syringe 10 Ml IV 10 ml BID LUPIS Administration Sodium Chloride 10 ml 01/21/19 05:25 Sodium Chloride Flush Syringe 10 Ml IV PRN PRN LINE FLUSH Nutrition/Malnutrition Assess - Dietary Evaluation Nutrition/Malnutrition Findings: Nutrition Notes Start: 01/21/19 13:38 Freq: Status: Active Protocol: Document 01/21/19 13:38 TONE (Rec: 01/21/19 13:50 TONE [facility]- [email or web address]) Nutrition Notes Need for Assessment generated from: MD Order Initial or Follow up Assessment Current Diagnosis Sepsis,Respiratory Failure Other Pertinent Diagnosis AMS, Metastatic breast CA, UTI Current Diet No diet ordered Labs/Tests reviewed Pertinent Medications Levophed gtt Height 5 ft 5 in Weight 72.575 kg [place] Body Weight (kg) 56.81 BMI 26.6 Subjective/Other Information RD consulted for malnutrition and TF; pt also screened for hx of receiving NTR support. Pt from inpatient hospice; has trach and PEG and on vent support. She also has a (R) chest tube. says not necessary for RD to see pt; just wants generic TF formula. Burn Absent Trauma Absent #1 Nutrition Diagnosis Inadequate oral intake Etiology mech ventilation As Evidenced by Signs and Symptoms pt NPO Is patient on ventilator? Yes Is Patient Ambulatory and/or Out of Bed No REE-([place]-[facility] [facility]-confined to bed) 1717.483 Calculation Used [facility]ations [facility] Additional Notes Pro needs 1.2-2g/k-145g/ day Fluid needs 1ml/kcal Nutrition Intervention Nutrition Support: Osmolite 1.5 at 45ml/hr with 150ml water flush q4h. Kcal 1,620 Protein (gm) 68 Fluid (mL) 823 Goal #1 TF tolerance Goal #2 TF at goal rate to meet at least 75% energy and pro needs Anticipated Discharge Needs: Continue TF Follow-Up By: 01/28/19 Additional Comments F/U: stable TF, wt
[2019-01-24] MEDS: SODIUM CHLORIDE FLUSH SYRINGE 10 ML IV SCH ×2 (12:31→21:54)
--- NOTE | 2019-01-24 13:54 | Progress Note ---
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 1. Continue daily PSV trials. 2. PT/OT 3. Patient has failed PSV 3 days in a row 4. Overall prognosis remains poor. Trach is fresh and was placed at [facility] a few weeks ago based on history from daughter. At this point, given history she is likely vent dependent and will not be able to be weaned. If not able to find a facility, family will have to figure out a plan for home. CCT 31 minutes. Subjective Date of service: 01/24/19 Interval history: Failed PSV again this am. Facility in [place] will not take her with pleurx catheter. patient still complaining and asking for increased pain medication and food. Objective Vital Signs - 12hr 01/24/19 01/24/19 01/24/19 02:01 02:30 03:00 Temperature Pulse Rate 92 H 83 Pulse Rate [ From Monitor] Respiratory 15 13 Rate Blood Pressure 130/62 124/60 O2 Sat by Pulse Oximetry O2 Sat by Pulse 95 Oximetry [ Assessment] 01/24/19 01/24/19 01/24/19 03:15 03:52 04:00 Temperature 97.8 F Pulse Rate 89 90 Pulse Rate [ 98 H From Monitor] Respiratory 24 Rate Blood Pressure 124/60 137/67 O2 Sat by Pulse 96 94 Oximetry O2 Sat by Pulse Oximetry [ Assessment] 01/24/19 01/24/19 01/24/19 05:01 06:00 07:01 Temperature Pulse Rate 103 H 110 H 86 Pulse Rate [ From Monitor] Respiratory 20 32 H 17 Rate Blood Pressure 157/64 151/75 151/75 O2 Sat by Pulse 93 95 98 Oximetry O2 Sat by Pulse Oximetry [ Assessment] 01/24/19 01/24/19 01/24/19 07:55 08:00 08:01 Temperature 98.0 F Pulse Rate 90 93 H Pulse Rate [ 83 From Monitor] Respiratory 15 14 Rate Blood Pressure 151/75 O2 Sat by Pulse 99 98 Oximetry O2 Sat by Pulse 97 Oximetry [ Assessment] 01/24/19 01/24/19 01/24/19 08:12 10:01 10:34 Temperature Pulse Rate 90 83 88 Pulse Rate [ From Monitor] Respiratory 15 Rate Blood Pressure 151/75 151/75 O2 Sat by Pulse 96 96 Oximetry O2 Sat by Pulse Oximetry [ Assessment] 01/24/19 01/24/19 12:00 12:27 Temperature 98.5 F Pulse Rate 77 74 Pulse Rate [ 77 From Monitor] Respiratory 12 Rate Blood Pressure 86/46 112/64 O2 Sat by Pulse 98 97 Oximetry O2 Sat by Pulse Oximetry [ Assessment] Constitutional: no acute distress, alert Neck: other (trach is midline) Ascultation: Bilateral: diminished breath sounds, rales Percussion: Bilateral: not dull Cardiovascular: regular rate and rhythm Gastrointestinal: soft, other (peg tubes) Extremities: no edema, pink and warm Neurologic: normal mental status CBC and BMP: 01/23/19 04:05 01/24/19 04:29 ABG, PT/INR, D-dimer: ABG POC ABG pH 7.390 (7.35-7.45) 01/24/19 04:34 POC ABG pCO2 48.6 (35-45) H 01/24/19 04:34 POC ABG pO2 65 (80-105) L 01/24/19 04:34 POC ABG HCO3 29.5 (22-26 mml/L) 01/24/19 04:34 POC ABG Total CO2 31 (23-27mmol/L) 01/24/19 04:34 POC ABG O2 Sat 92 01/24/19 04:34 Abnormal lab findings: Abnormal Labs 01/21/19 01/21/19 01/21/19 03:49 03:57 09:40 RBC Hgb Hct MCV MCH RDW Lymph % (Auto) [place] % (Auto) Lymph # Seg Neutrophils % Seg Neutrophils # POC ABG pCO2 POC ABG pO2 57 L Carbon Dioxide BUN Creatinine Glucose POC Glucose 135 H Calcium Magnesium AST Total Protein Albumin Urine WBC (Auto) 17.0 H 01/21/19 01/21/19 01/21/19 Unknown Unknown Unknown RBC 2.64 L Hgb 8.6 L Hct 26.7 L MCV 101 H MCH 33 H RDW 20.2 H Lymph % (Auto) 4.1 L [place] % (Auto) 8.3 H Lymph # 0.4 L Seg Neutrophils % 85.4 H Seg Neutrophils # 8.4 H POC ABG pCO2 POC ABG pO2 Carbon Dioxide 31 H BUN 21 H Creatinine Glucose 104 H POC Glucose Calcium 8.2 L Magnesium 2.40 H AST 52 H Total Protein 5.8 L Albumin 2.8 L Urine WBC (Auto) 01/22/19 01/23/19 01/23/19 05:58 03:58 04:05 RBC 2.53 L Hgb 8.3 L Hct 26.0 L MCV 103 H MCH 33 H RDW 20.3 H Lymph % (Auto) 6.7 L [place] % (Auto) 10.0 H Lymph # 0.6 L Seg Neutrophils % 80.7 H Seg Neutrophils # POC ABG pCO2 48.8 H 50.4 H POC ABG pO2 64 L 62 L Carbon Dioxide BUN Creatinine Glucose POC Glucose Calcium Magnesium AST Total Protein Albumin Urine WBC (Auto) 01/23/19 01/24/19 01/24/19 04:05 04:29 04:34 RBC Hgb Hct MCV MCH RDW Lymph % (Auto) [place] % (Auto) Lymph # Seg Neutrophils % Seg Neutrophils # POC ABG pCO2 48.6 H POC ABG pO2 65 L Carbon Dioxide BUN Creatinine 0.4 L 0.4 L Glucose 127 H 114 H POC Glucose Calcium 7.6 L 7.9 L Magnesium AST Total Protein Albumin Urine WBC (Auto)
[2019-01-24] MEDS: ATIVAN IV PRN (21:52)
[2019-01-25] MEDS: PERCOCET 5/325 PO PRN ×4 (01:57→18:00)
[2019-01-25] MEDS: LYRICA PO SCH (09:35)
[2019-01-25] MEDS: LOVENOX SUB-Q SCH (09:36)
[2019-01-25] MEDS: PREVACID SOLUTAB FEEDTUBE SCH (09:36)
[2019-01-25] MEDS: SODIUM CHLORIDE FLUSH SYRINGE 10 ML IV SCH (09:36)
--- NOTE | 2019-01-25 11:59 | Progress Note ---
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 1. Continue daily PSV trials. 2. PT/OT 3. Patient has failed PSV 3 days in a row. Now tolerating, will see how long she can last. 4. Overall prognosis remains poor. Trach is fresh and was placed at [facility] a few weeks ago based on history from daughter. At this point, given history she is likely vent dependent and will not be able to be weaned. If not able to find a facility, family will have to figure out a plan for home. CCT 31 minutes. Subjective Date of service: 01/25/19 Interval history: Tolerating PSV of 15. Family at bedside. Objective Vital Signs - 12hr 01/25/19 01/25/19 01/25/19 00:00 00:01 00:14 Temperature Pulse Rate 94 H 95 H Pulse Rate [ 99 H From Monitor] Respiratory 16 16 Rate Blood Pressure 83/50 83/50 O2 Sat by Pulse 95 94 Oximetry O2 Sat by Pulse 94 Oximetry [ Assessment] 01/25/19 01/25/19 01/25/19 00:31 01:00 01:31 Temperature Pulse Rate 95 H 116 H 112 H Pulse Rate [ From Monitor] Respiratory 16 35 H 14 Rate Blood Pressure 83/50 85/55 83/50 O2 Sat by Pulse 95 93 94 Oximetry O2 Sat by Pulse Oximetry [ Assessment] 01/25/19 01/25/19 01/25/19 01:57 02:00 02:31 Temperature Pulse Rate 99 H 98 H Pulse Rate [ From Monitor] Respiratory 20 17 17 Rate Blood Pressure 100/55 85/55 O2 Sat by Pulse 95 94 Oximetry O2 Sat by Pulse Oximetry [ Assessment] 01/25/19 01/25/19 01/25/19 02:54 03:01 03:31 Temperature 98.9 F Pulse Rate 110 H 95 H Pulse Rate [ From Monitor] Respiratory 26 H 15 Rate Blood Pressure 100/55 95/62 O2 Sat by Pulse 96 93 Oximetry O2 Sat by Pulse Oximetry [ Assessment] 01/25/19 01/25/19 01/25/19 04:00 04:31 05:00 Temperature Pulse Rate 94 H 105 H 101 H Pulse Rate [ 99 H From Monitor] Respiratory 16 19 16 Rate Blood Pressure 104/56 104/56 106/55 O2 Sat by Pulse 92 94 97 Oximetry O2 Sat by Pulse Oximetry [ Assessment] 01/25/19 01/25/19 01/25/19 05:31 06:00 06:31 Temperature Pulse Rate 89 90 99 H Pulse Rate [ From Monitor] Respiratory 15 15 19 Rate Blood Pressure 106/55 102/53 106/55 O2 Sat by Pulse 94 97 94 Oximetry O2 Sat by Pulse Oximetry [ Assessment] 01/25/19 01/25/19 01/25/19 07:00 07:27 07:31 Temperature 95.8 F L Pulse Rate 99 H 91 H 99 H Pulse Rate [ From Monitor] Respiratory 17 18 Rate Blood Pressure 92/44 92/44 92/44 O2 Sat by Pulse 95 95 96 Oximetry O2 Sat by Pulse 95 Oximetry [ Assessment] 01/25/19 01/25/19 01/25/19 08:00 08:31 09:00 Temperature Pulse Rate 88 87 89 Pulse Rate [ 88 From Monitor] Respiratory 20 14 14 Rate Blood Pressure 92/53 103/58 96/53 O2 Sat by Pulse 98 95 95 Oximetry O2 Sat by Pulse Oximetry [ Assessment] 01/25/19 01/25/19 09:30 11:50 Temperature Pulse Rate 96 H 92 H Pulse Rate [ From Monitor] Respiratory 29 H Rate Blood Pressure 96/53 106/55 O2 Sat by Pulse 93 93 Oximetry O2 Sat by Pulse Oximetry [ Assessment] Constitutional: no acute distress, alert Neck: other (trach is midline) Ascultation: Bilateral: diminished breath sounds, rales Percussion: Bilateral: not dull Cardiovascular: regular rate and rhythm Gastrointestinal: soft, other (peg tubes) Extremities: no edema, pink and warm Neurologic: normal mental status CBC and BMP: 01/23/19 04:05 01/24/19 04:29 ABG, PT/INR, D-dimer: ABG POC ABG pH 7.362 (7.35-7.45) 01/25/19 05:21 POC ABG pCO2 52.7 (35-45) H 01/25/19 05:21 POC ABG pO2 65 (80-105) L 01/25/19 05:21 POC ABG HCO3 29.9 (22-26 mml/L) 01/25/19 05:21 POC ABG Total CO2 31 (23-27mmol/L) 01/25/19 05:21 POC ABG O2 Sat 91 01/25/19 05:21 Abnormal lab findings: Abnormal Labs 01/21/19 01/21/19 01/21/19 03:49 03:57 09:40 RBC Hgb Hct MCV MCH RDW Lymph % (Auto) [place] % (Auto) Lymph # Seg Neutrophils % Seg Neutrophils # POC ABG pCO2 POC ABG pO2 57 L Carbon Dioxide BUN Creatinine Glucose POC Glucose 135 H Calcium Magnesium AST Total Protein Albumin Urine WBC (Auto) 17.0 H 01/21/19 01/21/19 01/21/19 Unknown Unknown Unknown RBC 2.64 L Hgb 8.6 L Hct 26.7 L MCV 101 H MCH 33 H RDW 20.2 H Lymph % (Auto) 4.1 L [place] % (Auto) 8.3 H Lymph # 0.4 L Seg Neutrophils % 85.4 H Seg Neutrophils # 8.4 H POC ABG pCO2 POC ABG pO2 Carbon Dioxide 31 H BUN 21 H Creatinine Glucose 104 H POC Glucose Calcium 8.2 L Magnesium 2.40 H AST 52 H Total Protein 5.8 L Albumin 2.8 L Urine WBC (Auto) 01/22/19 01/23/19 01/23/19 05:58 03:58 04:05 RBC 2.53 L Hgb 8.3 L Hct 26.0 L MCV 103 H MCH 33 H RDW 20.3 H Lymph % (Auto) 6.7 L [place] % (Auto) 10.0 H Lymph # 0.6 L Seg Neutrophils % 80.7 H Seg Neutrophils # POC ABG pCO2 48.8 H 50.4 H POC ABG pO2 64 L 62 L Carbon Dioxide BUN Creatinine Glucose POC Glucose Calcium Magnesium AST Total Protein Albumin Urine WBC (Auto) 01/23/19 01/24/19 01/24/19 04:05 04:29 04:34 RBC Hgb Hct MCV MCH RDW Lymph % (Auto) [place] % (Auto) Lymph # Seg Neutrophils % Seg Neutrophils # POC ABG pCO2 48.6 H POC ABG pO2 65 L Carbon Dioxide BUN Creatinine 0.4 L 0.4 L Glucose 127 H 114 H POC Glucose Calcium 7.6 L 7.9 L Magnesium AST Total Protein Albumin Urine WBC (Auto) 01/25/19 05:21 RBC Hgb Hct MCV MCH RDW Lymph % (Auto) [place] % (Auto) Lymph # Seg Neutrophils % Seg Neutrophils # POC ABG pCO2 52.7 H POC ABG pO2 65 L Carbon Dioxide BUN Creatinine Glucose POC Glucose Calcium Magnesium AST Total Protein Albumin Urine WBC (Auto)
[2019-01-25] MEDS: LOPRESSOR PO SCH ×2 (12:19→22:00)
--- NOTE | 2019-01-25 13:52 | Progress Note ---
Assessment and Plan Assessment and plan: Septic shock -Probably secondary to UTI, now resolved -Off IV pressor and antibiotic -Urine and blood cultures negative so far. Acute on chronic respiratory failure with hypoxia, resolved -Status post tracheostomy with mechanical ventilator dependence -Pulmonology following Acute toxic encephalopathy -Likely medication induced -Resolved -Head CT scan negative for acute findings. Stage IV breast cancer with metastases to the bone -Hospice recommended -Continue pain management. Bilateral pleural effusion -Likely malignant -s/p bilateral pleural catheter placement for drainage -LT catheter removed, RT remains in place and draining Anemia of chronic disease -H/H stable History of hypertension -Blood pressure trending up, home Lopressor resumed, will monitor Severe protein calorie malnutrition -Status post PEG tube placement on tube feeding -Nutrition following DVT prophylaxis with Lovenox Disposition: Patient's overall prognosis is very poor and hospice has been recommended. Pt is at her baseline. manager social working on discharge planning. Time spent: 35 minutes History Interval history: Pt has no new complaints and no new reported issues overnight. She denies chest pain or sob. Hospitalist Physical - Constitutional Vitals: Temp Pulse Resp BP Pulse Ox 98.8 F 93 H 15 108/58 91 01/25/19 11:00 01/25/19 13:00 01/25/19 13:00 01/25/19 13:00 01/25/19 13:00 General appearance: Present: no acute distress - EENT Eyes: Present: PERRL, EOM intact ENT: hearing intact, clear oral mucosa, other (status post trach on MV) - Neck Neck: Present: supple - Respiratory Respiratory effort: normal Respiratory: bilateral: diminished - Cardiovascular Rhythm: regular Heart Sounds: Present: S1 & S2 - Extremities Extremity abnormal: edema (in BUE) - Abdominal General gastrointestinal: soft, tender (mild and generalized), normal bowel sounds - Integumentary Integumentary: Present: clear, warm, dry - Neurologic Neurologic: moves all extremities Results - Labs CBC & Chem 7: 01/23/19 04:05 01/24/19 04:29 Labs: Laboratory Last Values WBC 8.5 K/mm3 (4.5-11.0) 01/23/19 04:05 RBC 2.53 M/mm3 (3.65-5.03) L 01/23/19 04:05 Hgb 8.3 gm/dl (10.1-14.3) L 01/23/19 04:05 Hct 26.0 % (30.3-42.9) L 01/23/19 04:05 MCV 103 fl (79-97) H 01/23/19 04:05 MCH 33 pg (28-32) H 01/23/19 04:05 MCHC 32 % (30-34) 01/23/19 04:05 RDW 20.3 % (13.2-15.2) H 01/23/19 04:05 Plt Count 238 K/mm3 (140-440) 01/23/19 04:05 Lymph % (Auto) 6.7 % (13.4-35.0) L 01/23/19 04:05 [place] % (Auto) 10.0 % (0.0-7.3) H 01/23/19 04:05 Eos % (Auto) 2.3 % (0.0-4.3) 01/23/19 04:05 Baso % (Auto) 0.3 % (0.0-1.8) 01/23/19 04:05 Lymph # 0.6 K/mm3 (1.2-5.4) L 01/23/19 04:05 [place] # 0.8 K/mm3 (0.0-0.8) 01/23/19 04:05 Eos # 0.2 K/mm3 (0.0-0.4) 01/23/19 04:05 Baso # 0.0 K/mm3 (0.0-0.1) 01/23/19 04:05 Seg Neutrophils % 80.7 % (40.0-70.0) H 01/23/19 04:05 Seg Neutrophils # 6.8 K/mm3 (1.8-7.7) 01/23/19 04:05 POC ABG pH 7.362 (7.35-7.45) 01/25/19 05:21 POC ABG pCO2 52.7 (35-45) H 01/25/19 05:21 POC ABG pO2 65 (80-105) L 01/25/19 05:21 POC ABG HCO3 29.9 (22-26 mml/L) 01/25/19 05:21 POC ABG Total CO2 31 (23-27mmol/L) 01/25/19 05:21 POC ABG O2 Sat 91 01/25/19 05:21 POC ABG Base Excess 5 ((-2) - (+3)mmol/L) 01/25/19 05:21 VBG pH 7.344 (7.320-7.420) 01/21/19 06:55 40 % 01/25/19 05:21 Sodium 138 mmol/L (137-145) 01/24/19 04:29 Potassium 4.0 mmol/L (3.6-5.0) 01/24/19 04:29 Chloride 99.7 mmol/L (98-107) 01/24/19 04:29 Carbon Dioxide 28 mmol/L (22-30) 01/24/19 04:29 14 mmol/L 01/24/19 04:29 BUN 10 mg/dL (7-17) 01/24/19 04:29 0.4 mg/dL (0.7-1.2) L 01/24/19 04:29 Estimated GFR > 60 ml/min 01/24/19 04:29 25 % 01/24/19 04:29 Glucose 114 mg/dL (65-100) H 01/24/19 04:29 POC Glucose 135 (70-105) H 01/21/19 09:40 Lactic Acid 1.90 mmol/L (0.7-2.0) 01/21/19 Unknown Calcium 7.9 mg/dL (8.4-10.2) L 01/24/19 04:29 Magnesium 2.40 mg/dL (1.7-2.3) H 01/21/19 Unknown 0.20 mg/dL (0.1-1.2) 01/21/19 Unknown AST 52 units/L (5-40) H 01/21/19 Unknown ALT 19 units/L (7-56) 01/21/19 Unknown 92 units/L (35-129) 01/21/19 Unknown 0.027 ng/mL (0.00-0.029) 01/21/19 Unknown 5.8 g/dL (6.3-8.2) L 01/21/19 Unknown 2.8 g/dL (3.9-5) L 01/21/19 Unknown 0.9 % 01/21/19 Unknown Yellow (Yellow) 01/21/19 03:49 Slightly-cloudy (Clear) 01/21/19 03:49 5.0 (5.0-7.0) 01/21/19 03:49 Ur Specific [place] 1.016 (1.003-1.030) 01/21/19 03:49 30 mg/dl mg/dL (Negative) 01/21/19 03:49 Neg mg/dL (Negative) 01/21/19 03:49 Tr mg/dL (Negative) 01/21/19 03:49 Neg (Negative) 01/21/19 03:49 Neg (Negative) 01/21/19 03:49 Neg (Negative) 01/21/19 03:49 < 2.0 mg/dL (<2.0) 01/21/19 03:49 Ur Leukocyte Esterase Sm (Negative) 01/21/19 03:49 17.0 /HPF (0.0-6.0) H 01/21/19 03:49 4.0 /HPF (0.0-6.0) 01/21/19 03:49 U Epithel Cells (Auto) 1.0 /HPF (0-13.0) 01/21/19 03:49 Few /HPF 01/21/19 03:49 Hyaline Casts 3 /LPF 01/21/19 03:49 Granular Casts 1 /LPF 01/21/19 03:49 Few /HPF 01/21/19 03:49 3+ /HPF 01/21/19 03:49 Active Medications - Current Medications Current Medications: Generic Name Dose Route Start Last Admin Trade Name Freq PRN Reason Stop Dose Admin Acetaminophen 650 mg 01/21/19 05:25 01/22/19 15:00 Tylenol PO 650 mg Q4H PRN Administration Pain MILD(1-3)/Fever >100.5/SPRING Albuterol 2.5 mg 01/21/19 05:25 Proventil IH Q3HRT PRN Shortness Of Breath Lipase/Protease/Amylase 1 each 01/21/19 15:[address] 10,500 Unit FEEDTUBE PRN PRN For Clogged Feeding Tube Diphenhydramine HCl 25 mg 01/24/19 08:15 Benadryl PO QHS PRN Insomnia Enoxaparin Sodium 40 mg 01/22/19 13:00 01/25/19 09:36 Lovenox SUB-Q 40 mg DAILY LUPIS Administration Fentanyl 50 mcg 01/24/19 10:00 01/24/19 09:07 Duragesic TD 50 mcg Q3D LUPIS Administration Guaifenesin 10 ml 01/21/19 06:05 Guaifenesin Dm Syrup PO Q4H PRN Cough Hydromorphone HCl 0.5 mg 01/21/19 05:25 01/24/19 19:48 Dilaudid IV 0.5 mg Q3H PRN Administration Pain , Severe (7-10) Lansoprazole 30 mg 01/22/19 13:00 01/25/19 09:36 Prevacid Solutab FEEDTUBE 30 mg QDAY LUPIS Administration Lorazepam 1 mg 01/24/19 14:47 01/24/19 21:52 Ativan IV 1 mg Q6H PRN Administration Anxiety Metoprolol Tartrate 12.5 mg 01/24/19 10:00 01/25/19 12:19 Lopressor PO Not Given BID LUPIS Ondansetron HCl 4 mg 01/21/19 05:25 Zofran IV Q8H PRN Nausea And Vomiting Oxycodone/Acetaminophen 2 tab 01/22/19 20:25 01/25/19 12:23 Percocet 5/325 PO 2 tab Q4H PRN Administration Pain, Moderate (4-6) Pregabalin 150 mg 01/24/19 10:00 01/25/19 09:35 Lyrica PO 150 mg QDAY LUPIS Administration Simethicone 80 mg 01/22/19 12:00 01/22/19 13:24 Mylicon PO 80 mg Q6H PRN Administration Gas pain Simple Syrup 15 ml 01/21/19 15:02 Simple Syrup FEEDTUBE PRN PRN Hypoglycemia Simple Syrup 30 ml 01/21/19 15:02 Simple Syrup FEEDTUBE PRN PRN Hypoglycemia Sodium Bicarbonate 325 mg 01/21/19 15:02 Sodium Bicarbonate FEEDTUBE PRN PRN For Clogged Feeding Tube Sodium Chloride 10 ml 01/21/19 10:00 01/25/19 09:36 Sodium Chloride Flush Syringe 10 Ml IV 10 ml BID LUPIS Administration Sodium Chloride 10 ml 01/21/19 05:25 Sodium Chloride Flush Syringe 10 Ml IV PRN PRN LINE FLUSH Nutrition/Malnutrition Assess - Dietary Evaluation Nutrition/Malnutrition Findings: Nutrition Notes Start: 01/21/19 13:38 Freq: Status: Active Protocol: Document 01/21/19 13:38 TONE (Rec: 01/21/19 13:50 TONE [email or web address]) Nutrition Notes Need for Assessment generated from: MD Order Initial or Follow up Assessment Current Diagnosis Sepsis,Respiratory Failure Other Pertinent Diagnosis AMS, Metastatic breast CA, UTI Current Diet No diet ordered Labs/Tests reviewed Pertinent Medications Levophed gtt Height 5 ft 5 in Weight 72.575 kg [place] Body Weight (kg) 56.81 BMI 26.6 Subjective/Other Information RD consulted for malnutrition and TF; pt also screened for hx of receiving NTR support. Pt from inpatient hospice; has trach and PEG and on vent support. She also has a (R) chest tube. says not necessary for RD to see pt; just wants generic TF formula. Burn Absent Trauma Absent #1 Nutrition Diagnosis Inadequate oral intake Etiology mech ventilation As Evidenced by Signs and Symptoms pt NPO Is patient on ventilator? Yes Is Patient Ambulatory and/or Out of Bed No REE-([facility]-confined to bed) [phone] Calculation Used for Recommendations [facility] Additional Notes Pro needs 1.2-2g/k-145g/ day Fluid needs 1ml/kcal Nutrition Intervention Nutrition Support: Osmolite 1.5 at 45ml/hr with 150ml water flush q4h. Kcal 1,620 Protein (gm) 68 Fluid (mL) 823 Goal #1 TF tolerance Goal #2 TF at goal rate to meet at least 75% energy and pro needs Anticipated Discharge Needs: Continue TF Follow-Up By: 01/28/19 Additional Comments F/U: stable TF, wt
[2019-01-25] MEDS: ATIVAN IV PRN (20:43)
[2019-01-26] MEDS: PERCOCET 5/325 PO PRN ×4 (00:08→19:41)
[2019-01-26] MEDS: BENADRYL PO PRN ×2 (00:09→21:32)
[2019-01-26] MEDS: SODIUM CHLORIDE FLUSH SYRINGE 10 ML IV SCH ×3 (00:09→21:32)
[2019-01-26] MEDS: DILAUDID IV PRN ×3 (00:51→20:53)
--- NOTE | 2019-01-26 10:52 | Progress Note ---
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 1. Continue daily PSV trials. 2. PT/OT 3. Family has refused hospice. Vent facility in [place] would accept but because of the pleurx, they will not take her. 4. Overall prognosis remains poor. Trach is fresh and was placed at [facility] a few weeks ago based on history from daughter. Per daughter the 6 that is in there is the one that was originally placed and she has not been downsized. Continue daily PSV, hopeful that she can CCT 31 minutes. Subjective Date of service: 01/26/19 Interval history: No acute events. patient continues to ask for food although it has been explained to her several times that she has a feeding tube and cannot eat. Nursing asked again this am for oral food. Tolerated PSV from 11-5pm on yesterday. Objective Vital Signs - 12hr 01/25/19 01/25/19 01/25/19 23:00 23:18 23:31 Temperature 98.8 F Pulse Rate 103 H 98 H Pulse Rate [ From Monitor] Respiratory 20 22 Rate Blood Pressure 102/58 102/58 O2 Sat by Pulse 95 97 Oximetry O2 Sat by Pulse Oximetry [ Assessment] 01/25/19 01/26/19 01/26/19 23:49 00:00 00:31 Temperature Pulse Rate 111 H 109 H 108 H Pulse Rate [ 100 H From Monitor] Respiratory 13 32 H Rate Blood Pressure 105/72 102/58 105/72 O2 Sat by Pulse 96 92 89 Oximetry O2 Sat by Pulse 96 Oximetry [ Assessment] 01/26/19 01/26/19 01/26/19 01:00 01:31 02:00 Temperature Pulse Rate 100 H 100 H 99 H Pulse Rate [ From Monitor] Respiratory 18 17 18 Rate Blood Pressure 105/72 82/44 87/47 O2 Sat by Pulse 93 95 94 Oximetry O2 Sat by Pulse Oximetry [ Assessment] 01/26/19 01/26/19 01/26/19 02:31 03:00 03:30 Temperature Pulse Rate 96 H 97 H 97 H Pulse Rate [ From Monitor] Respiratory 18 19 18 Rate Blood Pressure 94/47 86/50 86/50 O2 Sat by Pulse 95 95 96 Oximetry O2 Sat by Pulse Oximetry [ Assessment] 01/26/19 01/26/19 01/26/19 03:31 04:00 04:01 Temperature 97.6 F Pulse Rate 94 H Pulse Rate [ 98 H From Monitor] Respiratory 19 Rate Blood Pressure 86/50 94/59 O2 Sat by Pulse 97 89 Oximetry O2 Sat by Pulse Oximetry [ Assessment] 01/26/19 01/26/19 01/26/19 04:31 05:00 05:31 Temperature Pulse Rate 94 H 103 H 103 H Pulse Rate [ From Monitor] Respiratory 18 19 30 H Rate Blood Pressure 94/59 109/57 113/53 O2 Sat by Pulse 97 95 Oximetry O2 Sat by Pulse Oximetry [ Assessment] 01/26/19 01/26/19 01/26/19 06:00 06:31 07:01 Temperature Pulse Rate 118 H 95 H 107 H Pulse Rate [ From Monitor] Respiratory 18 19 24 Rate Blood Pressure 162/82 109/57 122/61 O2 Sat by Pulse 90 97 94 Oximetry O2 Sat by Pulse Oximetry [ Assessment] 01/26/19 01/26/19 01/26/19 07:28 07:31 07:32 Temperature Pulse Rate 103 H 103 H Pulse Rate [ From Monitor] Respiratory 24 Rate Blood Pressure 122/61 122/61 O2 Sat by Pulse 95 94 Oximetry O2 Sat by Pulse 96 Oximetry [ Assessment] 01/26/19 01/26/19 01/26/19 08:00 08:01 08:31 Temperature Pulse Rate 94 H 98 H 94 H Pulse Rate [ 97 H From Monitor] Respiratory 18 18 17 Rate Blood Pressure 122/61 122/61 O2 Sat by Pulse 98 95 96 Oximetry O2 Sat by Pulse Oximetry [ Assessment] 01/26/19 01/26/19 09:01 09:31 Temperature Pulse Rate 92 H 101 H Pulse Rate [ From Monitor] Respiratory 17 16 Rate Blood Pressure 112/45 112/45 O2 Sat by Pulse 96 96 Oximetry O2 Sat by Pulse Oximetry [ Assessment] Constitutional: no acute distress, alert Neck: other (trach is midline) Ascultation: Bilateral: diminished breath sounds, rales Percussion: Bilateral: not dull Cardiovascular: regular rate and rhythm Gastrointestinal: soft, other (peg tubes) Extremities: no edema, pink and warm Neurologic: normal mental status CBC and BMP: 01/23/19 04:05 01/24/19 04:29 ABG, PT/INR, D-dimer: ABG POC ABG pH 7.368 (7.35-7.45) 01/26/19 03:59 POC ABG pCO2 55.6 (35-45) H 01/26/19 03:59 POC ABG pO2 69 (80-105) L 01/26/19 03:59 POC ABG HCO3 32.0 (22-26 mml/L) 01/26/19 03:59 POC ABG Total CO2 34 (23-27mmol/L) 01/26/19 03:59 POC ABG O2 Sat 92 01/26/19 03:59 Abnormal lab findings: Abnormal Labs 01/21/19 01/21/19 01/21/19 03:49 03:57 09:40 RBC Hgb Hct MCV MCH RDW Lymph % (Auto) [place] % (Auto) Lymph # Seg Neutrophils % Seg Neutrophils # POC ABG pCO2 POC ABG pO2 57 L Carbon Dioxide BUN Creatinine Glucose POC Glucose 135 H Calcium Magnesium AST Total Protein Albumin Urine WBC (Auto) 17.0 H 01/21/19 01/21/19 01/21/19 Unknown Unknown Unknown RBC 2.64 L Hgb 8.6 L Hct 26.7 L MCV 101 H MCH 33 H RDW 20.2 H Lymph % (Auto) 4.1 L [place] % (Auto) 8.3 H Lymph # 0.4 L Seg Neutrophils % 85.4 H Seg Neutrophils # 8.4 H POC ABG pCO2 POC ABG pO2 Carbon Dioxide 31 H BUN 21 H Creatinine Glucose 104 H POC Glucose Calcium 8.2 L Magnesium 2.40 H AST 52 H Total Protein 5.8 L Albumin 2.8 L Urine WBC (Auto) 01/22/19 01/23/19 01/23/19 05:58 03:58 04:05 RBC 2.53 L Hgb 8.3 L Hct 26.0 L MCV 103 H MCH 33 H RDW 20.3 H Lymph % (Auto) 6.7 L [place] % (Auto) 10.0 H Lymph # 0.6 L Seg Neutrophils % 80.7 H Seg Neutrophils # POC ABG pCO2 48.8 H 50.4 H POC ABG pO2 64 L 62 L Carbon Dioxide BUN Creatinine Glucose POC Glucose Calcium Magnesium AST Total Protein Albumin Urine WBC (Auto) 0801/24/19 01/24/19 04:05 04:29 04:34 RBC Hgb Hct MCV MCH RDW Lymph % (Auto) [place] % (Auto) Lymph # Seg Neutrophils % Seg Neutrophils # POC ABG pCO2 48.6 H POC ABG pO2 65 L Carbon Dioxide BUN Creatinine 0.4 L 0.4 L Glucose 127 H 114 H POC Glucose Calcium 7.6 L 7.9 L Magnesium AST Total Protein Albumin Urine WBC (Auto) 01/25/19 01/26/19 05:21 03:59 RBC Hgb Hct MCV MCH RDW Lymph % (Auto) [place] % (Auto) Lymph # Seg Neutrophils % Seg Neutrophils # POC ABG pCO2 52.7 H 55.6 H POC ABG pO2 65 L 69 L Carbon Dioxide BUN Creatinine Glucose POC Glucose Calcium Magnesium AST Total Protein Albumin Urine WBC (Auto)
--- NOTE | 2019-01-26 11:12 | Progress Note ---
Assessment and Plan Assessment and plan: Septic shock -Probably secondary to UTI, now resolved -Off IV pressor and antibiotic -Urine and blood cultures negative so far. Acute on chronic respiratory failure with hypoxia, resolved -Status post tracheostomy with mechanical ventilator dependence -Pulmonology following Acute toxic encephalopathy -Likely medication induced -Resolved -Head CT scan negative for acute findings. Stage IV breast cancer with metastases to the bone -Hospice recommended -Continue pain management. Bilateral pleural effusion -Likely malignant -s/p bilateral pleural catheter placement for drainage -LT catheter removed, RT remains in place and draining Anemia of chronic disease -H/H stable History of hypertension -Blood pressure trending up, home Lopressor resumed, will monitor Severe protein calorie malnutrition -Status post PEG tube placement on tube feeding -Nutrition following DVT prophylaxis with Lovenox Disposition: Patient's overall prognosis is very poor and hospice has been recommended. Pt is at her baseline. reimbursement manager working on discharge planning. Time spent: 35 minutes Hospitalist Physical - Constitutional Vitals: Temp Pulse Resp BP Pulse Ox 97.6 F 101 H 16 112/45 96 01/26/19 03:31 01/26/19 09:31 01/26/19 09:31 01/26/19 09:31 01/26/19 09:31 General appearance: Present: no acute distress Results - Labs CBC & Chem 7: 01/23/19 04:05 01/24/19 04:29 Labs: Laboratory Last Values WBC 8.5 K/mm3 (4.5-11.0) 01/23/19 04:05 RBC 2.53 M/mm3 (3.65-5.03) L 01/23/19 04:05 Hgb 8.3 gm/dl (10.1-14.3) L 01/23/19 04:05 Hct 26.0 % (30.3-42.9) L 01/23/19 04:05 MCV 103 fl (79-97) H 01/23/19 04:05 MCH 33 pg (28-32) H 01/23/19 04:05 MCHC 32 % (30-34) 01/23/19 04:05 RDW 20.3 % (13.2-15.2) H 01/23/19 04:05 Plt Count 238 K/mm3 (140-440) 01/23/19 04:05 Lymph % (Auto) 6.7 % (13.4-35.0) L 01/23/19 04:05 [place] % (Auto) 10.0 % (0.0-7.3) H 01/23/19 04:05 Eos % (Auto) 2.3 % (0.0-4.3) 01/23/19 04:05 Baso % (Auto) 0.3 % (0.0-1.8) 01/23/19 04:05 Lymph # 0.6 K/mm3 (1.2-5.4) L 01/23/19 04:05 [place]ine # 0.8 K/mm3 (0.0-0.8) 01/23/19 04:05 Eos # 0.2 K/mm3 (0.0-0.4) 01/23/19 04:05 Baso # 0.0 K/mm3 (0.0-0.1) 01/23/19 04:05 Seg Neutrophils % 80.7 % (40.0-70.0) H 01/23/19 04:05 Seg Neutrophils # 6.8 K/mm3 (1.8-7.7) 01/23/19 04:05 POC ABG pH 7.368 (7.35-7.45) 01/26/19 03:59 POC ABG pCO2 55.6 (35-45) H 01/26/19 03:59 POC ABG pO2 69 (80-105) L 01/26/19 03:59 POC ABG HCO3 32.0 (22-26 mml/L) 01/26/19 03:59 POC ABG Total CO2 34 (23-27mmol/L) 01/26/19 03:59 POC ABG O2 Sat 92 01/26/19 03:59 POC ABG Base Excess 7 ((-2) - (+3)mmol/L) 01/26/19 03:59 VBG pH 7.344 (7.320-7.420) 01/21/19 06:55 40 % 01/26/19 03:59 Sodium 138 mmol/L (137-145) 01/24/19 04:29 Potassium 4.0 mmol/L (3.6-5.0) 01/24/19 04:29 Chloride 99.7 mmol/L (98-107) 01/24/19 04:29 Carbon Dioxide 28 mmol/L (22-30) 01/24/19 04:29 14 mmol/L 01/24/19 04:29 BUN 10 mg/dL (7-17) 01/24/19 04:29 0.4 mg/dL (0.7-1.2) L 01/24/19 04:29 Estimated GFR > 60 ml/min 01/24/19 04:29 25 % 01/24/19 04:29 Glucose 114 mg/dL (65-100) H 01/24/19 04:29 POC Glucose 135 (70-105) H 01/21/19 09:40 Lactic Acid 1.90 mmol/L (0.7-2.0) 01/21/19 Unknown Calcium 7.9 mg/dL (8.4-10.2) L 01/24/19 04:29 Magnesium 2.40 mg/dL (1.7-2.3) H 01/21/19 Unknown 0.20 mg/dL (0.1-1.2) 01/21/19 Unknown AST 52 units/L (5-40) H 01/21/19 Unknown ALT 19 units/L (7-56) 01/21/19 Unknown 92 units/L (35-129) 01/21/19 Unknown 0.027 ng/mL (0.00-0.029) 01/21/19 Unknown 5.8 g/dL (6.3-8.2) L 01/21/19 Unknown 2.8 g/dL (3.9-5) L 01/21/19 Unknown 0.9 % 01/21/19 Unknown Yellow (Yellow) 01/21/19 03:49 Slightly-cloudy (Clear) 01/21/19 03:49 5.0 (5.0-7.0) 01/21/19 03:49 Ur Specific [place] 1.016 (1.003-1.030) 01/21/19 03:49 30 mg/dl mg/dL (Negative) 01/21/19 03:49 Neg mg/dL (Negative) 01/21/19 03:49 Tr mg/dL (Negative) 01/21/19 03:49 Neg (Negative) 01/21/19 03:49 Neg (Negative) 01/21/19 03:49 Neg (Negative) 01/21/19 03:49 < 2.0 mg/dL (<2.0) 01/21/19 03:49 Ur Leukocyte Esterase Sm (Negative) 01/21/19 03:49 17.0 /HPF (0.0-6.0) H 01/21/19 03:49 4.0 /HPF (0.0-6.0) 01/21/19 03:49 U Epithel Cells (Auto) 1.0 /HPF (0-13.0) 01/21/19 03:49 Few /HPF 01/21/19 03:49 Hyaline Casts 3 /LPF 01/21/19 03:49 Granular Casts 1 /LPF 01/21/19 03:49 Few /HPF 01/21/19 03:49 3+ /HPF 01/21/19 03:49 Active Medications - Current Medications Current Medications: Generic Name Dose Route Start Last Admin Trade Name Freq PRN Reason Stop Dose Admin Acetaminophen 650 mg 01/21/19 05:25 01/22/19 15:00 Tylenol PO 650 mg Q4H PRN Administration Pain MILD(1-3)/Fever >100.5/SPRING Albuterol 2.5 mg 01/21/19 05:25 Proventil IH Q3HRT PRN Shortness Of Breath Lipase/Protease/Amylase 1 each 01/21/19 15:[address] 10,500 Unit FEEDTUBE PRN PRN For Clogged Feeding Tube Diphenhydramine HCl 25 mg 01/24/19 08:15 01/26/19 00:09 Benadryl PO 25 mg QHS PRN Administration Insomnia Enoxaparin Sodium 40 mg 01/22/19 13:00 01/25/19 09:36 Lovenox SUB-Q 40 mg DAILY LUPIS Administration Fentanyl 50 mcg 01/24/19 10:00 01/24/19 09:07 Duragesic TD 50 mcg Q3D LUPIS Administration Guaifenesin 10 ml 01/21/19 06:05 Guaifenesin Dm Syrup PO Q4H PRN Cough Hydromorphone HCl 0.5 mg 01/21/19 05:25 01/26/19 00:51 Dilaudid IV 0.5 mg Q3H PRN Administration Pain , Severe (7-10) Lansoprazole 30 mg 01/22/19 13:00 01/25/19 09:36 Prevacid Solutab FEEDTUBE 30 mg QDAY LUPIS Administration Lorazepam 1 mg 01/24/19 14:47 01/25/19 20:43 Ativan IV 1 mg Q6H PRN Administration Anxiety Metoprolol Tartrate 12.5 mg 01/24/19 10:00 01/25/19 22:00 Lopressor PO Not Given BID LUPIS Ondansetron HCl 4 mg 01/21/19 05:25 Zofran IV Q8H PRN Nausea And Vomiting Oxycodone/Acetaminophen 2 tab 01/22/19 20:25 01/26/19 07:24 Percocet 5/325 PO 2 tab Q4H PRN Administration Pain, Moderate (4-6) Pregabalin 150 mg 01/24/19 10:00 01/25/19 09:35 Lyrica PO 150 mg QDAY LUPIS Administration Simethicone 80 mg 01/22/19 12:00 01/22/19 13:24 Mylicon PO 80 mg Q6H PRN Administration Gas pain Simple Syrup 15 ml 01/21/19 15:02 Simple Syrup FEEDTUBE PRN PRN Hypoglycemia Simple Syrup 30 ml 01/21/19 15:02 Simple Syrup FEEDTUBE PRN PRN Hypoglycemia Sodium Bicarbonate 325 mg 01/21/19 15:02 Sodium Bicarbonate FEEDTUBE PRN PRN For Clogged Feeding Tube Sodium Chloride 10 ml 01/21/19 10:00 01/26/19 00:09 Sodium Chloride Flush Syringe 10 Ml IV 10 ml BID LUPIS Administration Sodium Chloride 10 ml 01/21/19 05:25 Sodium Chloride Flush Syringe 10 Ml IV PRN PRN LINE FLUSH Nutrition/Malnutrition Assess - Dietary Evaluation Nutrition/Malnutrition Findings: Nutrition Notes Start: 01/21/19 13:38 Freq: Status: Active Protocol: Document 01/21/19 13:38 TONE (Rec: 01/21/19 13:50 TONE [email or web address]) Nutrition Notes Need for Assessment generated from: MD Order Initial or Follow up Assessment Current Diagnosis Sepsis,Respiratory Failure Other Pertinent Diagnosis AMS, Metastatic breast CA, UTI Current Diet No diet ordered Labs/Tests reviewed Pertinent Medications Levophed gtt Height 5 ft 5 in Weight 72.575 kg [place] Body Weight (kg) 56.81 BMI 26.6 Subjective/Other Information RD consulted for malnutrition and TF; pt also screened for hx of receiving NTR support. Pt from inpatient hospice; has trach and PEG and on vent support. She also has a (R) chest tube. says not necessary for RD to see pt; just wants generic TF formula. Burn Absent Trauma Absent #1 Nutrition Diagnosis Inadequate oral intake Etiology mech ventilation As Evidenced by Signs and Symptoms pt NPO Is patient on ventilator? Yes Is Patient Ambulatory and/or Out of Bed No REE-([facility]-confined to bed) [phone] Calculation Used for Recommendations [facility] Additional Notes Pro needs 1.2-2g/k-145g/ day Fluid needs 1ml/kcal Nutrition Intervention Nutrition Support: Osmolite 1.5 at 45ml/hr with 150ml water flush q4h. Kcal 1,620 Protein (gm) 68 Fluid (mL) 823 Goal #1 TF tolerance Goal #2 TF at goal rate to meet at least 75% energy and pro needs Anticipated Discharge Needs: Continue TF Follow-Up By: 01/28/19 Additional Comments F/U: stable TF, wt
[2019-01-26] MEDS: LYRICA PO SCH (11:13)
[2019-01-26] MEDS: LOVENOX SUB-Q SCH (11:13)
[2019-01-26] MEDS: PREVACID SOLUTAB FEEDTUBE SCH (11:13)
[2019-01-26] MEDS: DURAGESIC TD SCH (13:35)
[2019-01-26] MEDS: LOPRESSOR PO SCH ×2 (20:31→21:32)
[2019-01-27] MEDS: DILAUDID IV PRN (03:47)
[2019-01-27] MEDS: PERCOCET 5/325 PO PRN ×5 (07:33→20:55)
--- NOTE | 2019-01-27 07:58 | Progress Note ---
Assessment and Plan Assessment and plan: Septic shock -Probably secondary to UTI, now resolved -Off IV pressor and antibiotic -Urine and blood cultures negative so far. Acute on chronic respiratory failure with hypoxia, resolved -Status post tracheostomy with mechanical ventilator dependence -Pulmonology following Acute toxic encephalopathy -Likely medication induced -Resolved -Head CT scan negative for acute findings. Stage IV breast cancer with metastases to the bone -Hospice recommended -Continue pain management. Bilateral pleural effusion -Likely malignant -s/p bilateral pleural catheter placement for drainage -LT catheter removed, RT remains in place and draining Anemia of chronic disease -H/H stable History of hypertension -Blood pressure trending up, home Lopressor resumed, will monitor Severe protein calorie malnutrition -Status post PEG tube placement on tube feeding -Nutrition following DVT prophylaxis with Lovenox Disposition: Patient's overall prognosis is very poor and hospice has been recommended. Pt is at her baseline. manager user interface working on discharge planning. Time spent: 35 minutes Hospitalist Physical - Constitutional Vitals: Temp Pulse Resp BP Pulse Ox 98.9 F 110 H 22 108/86 98 01/27/19 04:00 01/27/19 07:16 01/27/19 06:00 01/27/19 07:16 01/27/19 07:22 General appearance: Present: no acute distress Results - Labs CBC & Chem 7: 01/29/19 03:17 01/29/19 03:17 Labs: Laboratory Last Values WBC 8.5 K/mm3 (4.5-11.0) 01/23/19 04:05 RBC 2.53 M/mm3 (3.65-5.03) L 01/23/19 04:05 Hgb 8.3 gm/dl (10.1-14.3) L 01/23/19 04:05 Hct 26.0 % (30.3-42.9) L 01/23/19 04:05 MCV 103 fl (79-97) H 01/23/19 04:05 MCH 33 pg (28-32) H 01/23/19 04:05 MCHC 32 % (30-34) 01/23/19 04:05 RDW 20.3 % (13.2-15.2) H 01/23/19 04:05 Plt Count 238 K/mm3 (140-440) 01/23/19 04:05 Lymph % (Auto) 6.7 % (13.4-35.0) L 01/23/19 04:05 [place] % (Auto) 10.0 % (0.0-7.3) H 01/23/19 04:05 Eos % (Auto) 2.3 % (0.0-4.3) 01/23/19 04:05 Baso % (Auto) 0.3 % (0.0-1.8) 01/23/19 04:05 Lymph # 0.6 K/mm3 (1.2-5.4) L 01/23/19 04:05 [place] # 0.8 K/mm3 (0.0-0.8) 01/23/19 04:05 Eos # 0.2 K/mm3 (0.0-0.4) 01/23/19 04:05 Baso # 0.0 K/mm3 (0.0-0.1) 01/23/19 04:05 Seg Neutrophils % 80.7 % (40.0-70.0) H 01/23/19 04:05 Seg Neutrophils # 6.8 K/mm3 (1.8-7.7) 01/23/19 04:05 POC ABG pH 7.368 (7.35-7.45) 01/26/19 03:59 POC ABG pCO2 55.6 (35-45) H 01/26/19 03:59 POC ABG pO2 69 (80-105) L 01/26/19 03:59 POC ABG HCO3 32.0 (22-26 mml/L) 01/26/19 03:59 POC ABG Total CO2 34 (23-27mmol/L) 01/26/19 03:59 POC ABG O2 Sat 92 01/26/19 03:59 POC ABG Base Excess 7 ((-2) - (+3)mmol/L) 01/26/19 03:59 VBG pH 7.344 (7.320-7.420) 01/21/19 06:55 40 % 01/26/19 03:59 Sodium 138 mmol/L (137-145) 01/24/19 04:29 Potassium 4.0 mmol/L (3.6-5.0) 01/24/19 04:29 Chloride 99.7 mmol/L (98-107) 01/24/19 04:29 Carbon Dioxide 28 mmol/L (22-30) 01/24/19 04:29 14 mmol/L 01/24/19 04:29 BUN 10 mg/dL (7-17) 01/24/19 04:29 0.4 mg/dL (0.7-1.2) L 01/24/19 04:29 Estimated GFR > 60 ml/min 01/24/19 04:29 25 % 01/24/19 04:29 Glucose 114 mg/dL (65-100) H 01/24/19 04:29 POC Glucose 120 (70-105) H 01/27/19 07:54 Lactic Acid 1.90 mmol/L (0.7-2.0) 01/21/19 Unknown Calcium 7.9 mg/dL (8.4-10.2) L 01/24/19 04:29 Magnesium 2.40 mg/dL (1.7-2.3) H 01/21/19 Unknown 0.20 mg/dL (0.1-1.2) 01/21/19 Unknown AST 52 units/L (5-40) H 01/21/19 Unknown ALT 19 units/L (7-56) 01/21/19 Unknown 92 units/L (35-129) 01/21/19 Unknown 0.027 ng/mL (0.00-0.029) 01/21/19 Unknown 5.8 g/dL (6.3-8.2) L 01/21/19 Unknown 2.8 g/dL (3.9-5) L 01/21/19 Unknown 0.9 % 01/21/19 Unknown Yellow (Yellow) 01/21/19 03:49 Slightly-cloudy (Clear) 01/21/19 03:49 5.0 (5.0-7.0) 01/21/19 03:49 Ur Specific [place] 1.016 (1.003-1.030) 01/21/19 03:49 30 mg/dl mg/dL (Negative) 01/21/19 03:49 Neg mg/dL (Negative) 01/21/19 03:49 Tr mg/dL (Negative) 01/21/19 03:49 Neg (Negative) 01/21/19 03:49 Neg (Negative) 01/21/19 03:49 Neg (Negative) 01/21/19 03:49 < 2.0 mg/dL (<2.0) 01/21/19 03:49 Ur Leukocyte Esterase Sm (Negative) 01/21/19 03:49 17.0 /HPF (0.0-6.0) H 01/21/19 03:49 4.0 /HPF (0.0-6.0) 01/21/19 03:49 U Epithel Cells (Auto) 1.0 /HPF (0-13.0) 01/21/19 03:49 Few /HPF 01/21/19 03:49 Hyaline Casts 3 /LPF 01/21/19 03:49 Granular Casts 1 /LPF 01/21/19 03:49 Few /HPF 01/21/19 03:49 3+ /HPF 01/21/19 03:49 Active Medications - Current Medications Current Medications: Generic Name Dose Route Start Last Admin Trade Name Freq PRN Reason Stop Dose Admin Acetaminophen 650 mg 01/21/19 05:25 01/22/19 15:00 Tylenol PO 650 mg Q4H PRN Administration Pain MILD(1-3)/Fever >100.5/SPRING Albuterol 2.5 mg 01/21/19 05:25 Proventil IH Q3HRT PRN Shortness Of Breath Lipase/Protease/Amylase 1 each 01/21/19 15:[address] 10,500 Unit FEEDTUBE PRN PRN For Clogged Feeding Tube Diphenhydramine HCl 25 mg 01/24/19 08:15 01/26/19 21:32 Benadryl PO 25 mg QHS PRN Administration Insomnia Enoxaparin Sodium 40 mg 01/22/19 13:00 01/26/19 11:13 Lovenox SUB-Q 40 mg DAILY LUPIS Administration Fentanyl 50 mcg 01/26/19 14:00 01/26/19 13:35 Duragesic TD 50 mcg Q3D LUPIS Administration Guaifenesin 10 ml 01/21/19 06:05 Guaifenesin Dm Syrup PO Q4H PRN Cough Hydromorphone HCl 0.5 mg 01/21/19 05:25 01/27/19 03:47 Dilaudid IV 0.5 mg Q3H PRN Administration Pain , Severe (7-10) Lansoprazole 30 mg 01/22/19 13:00 01/26/19 11:13 Prevacid Solutab FEEDTUBE 30 mg QDAY LUPIS Administration Lorazepam 1 mg 01/24/19 14:47 01/25/19 20:43 Ativan IV 1 mg Q6H PRN Administration Anxiety Metoprolol Tartrate 12.5 mg 01/24/19 10:00 01/26/19 21:32 Lopressor PO Not Given BID LUPIS Ondansetron HCl 4 mg 01/21/19 05:25 Zofran IV Q8H PRN Nausea And Vomiting Oxycodone/Acetaminophen 2 tab 01/22/19 20:25 01/27/19 07:33 Percocet 5/325 PO 2 tab Q4H PRN Administration Pain, Moderate (4-6) Pregabalin 150 mg 01/24/19 10:00 01/26/19 11:13 Lyrica PO 150 mg QDAY LUPIS Administration Simethicone 80 mg 01/22/19 12:00 01/22/19 13:24 Mylicon PO 80 mg Q6H PRN Administration Gas pain Simple Syrup 15 ml 01/21/19 15:02 Simple Syrup FEEDTUBE PRN PRN Hypoglycemia Simple Syrup 30 ml 01/21/19 15:02 Simple Syrup FEEDTUBE PRN PRN Hypoglycemia Sodium Bicarbonate 325 mg 01/21/19 15:02 Sodium Bicarbonate FEEDTUBE PRN PRN For Clogged Feeding Tube Sodium Chloride 10 ml 01/21/19 10:00 01/26/19 21:32 Sodium Chloride Flush Syringe 10 Ml IV 10 ml BID LUPIS Administration Sodium Chloride 10 ml 01/21/19 05:25 Sodium Chloride Flush Syringe 10 Ml IV PRN PRN LINE FLUSH Nutrition/Malnutrition Assess - Dietary Evaluation Nutrition/Malnutrition Findings: Nutrition Notes Start: 01/21/19 13:38 Freq: Status: Active Protocol: Document 01/21/19 13:38 TONE (Rec: 01/21/19 13:50 TONE [email or web address]) Nutrition Notes Need for Assessment generated from: MD Order Initial or Follow up Assessment Current Diagnosis Sepsis,Respiratory Failure Other Pertinent Diagnosis AMS, Metastatic breast CA, UTI Current Diet No diet ordered Labs/Tests reviewed Pertinent Medications Levophed gtt Height 5 ft 5 in Weight 72.575 kg [place] Body Weight (kg) 56.81 BMI 26.6 Subjective/Other Information RD consulted for malnutrition and TF; pt also screened for hx of receiving NTR support. Pt from inpatient hospice; has trach and PEG and on vent support. She also has a (R) chest tube. says not necessary for RD to see pt; just wants generic TF formula. Burn Absent Trauma Absent #1 Nutrition Diagnosis Inadequate oral intake Etiology mech ventilation As Evidenced by Signs and Symptoms pt NPO Is patient on ventilator? Yes Is Patient Ambulatory and/or Out of Bed No REE-([facility]-confined to bed) 9424.936 Calculation Used for Recommendations [facility] Additional Notes Pro needs 1.2-2g/k-145g/ day Fluid needs 1ml/kcal Nutrition Intervention Nutrition Support: Osmolite 1.5 at 45ml/hr with 150ml water flush q4h. Kcal 1,620 Protein (gm) 68 Fluid (mL) 823 Goal #1 TF tolerance Goal #2 TF at goal rate to meet at least 75% energy and pro needs Anticipated Discharge Needs: Continue TF Follow-Up By: 01/28/19 Additional Comments F/U: stable TF, wt
[2019-01-27] MEDS: LOVENOX SUB-Q SCH (09:24)
[2019-01-27] MEDS: PREVACID SOLUTAB FEEDTUBE SCH (09:24)
[2019-01-27] MEDS: LOPRESSOR PO SCH ×2 (09:26→22:16)
[2019-01-27] MEDS: LYRICA PO SCH (09:27)
[2019-01-27] MEDS: SODIUM CHLORIDE FLUSH SYRINGE 10 ML IV SCH ×2 (09:28→21:01)
--- NOTE | 2019-01-27 17:02 | Progress Note ---
Assessment and Plan Imp: 1. Metastatic breast cancer; essentially appears she has end-stage disease 2. Malignant pleural effusions, loculated on the R, with R PleurX POA 3. Pericardial effusion s/p window 08/2018; previous Echo 11/2018 negative for tamponade 4. A/C respiratory failure s/p Trach; believe this is primarily due to #'s 1 and 2 5. ? UTI/Sepsis Rec: 1. Daily PSV trials although I do not believe she will be weanable, after failure to wean at [facility] 12/14/18 -01/20/19; she was denied admission to long-term ventilator facilities due to PleurX, and family refuses hospice; it seems the only option would be her going home with family, on mechanical ventilation; will work with onsite case manager and family towards that end 2. Finished ABX 3. Leave PleurX to suction on R; I doubt that placing a L sided chest tube would change her clinical status 4. TFs per PEG 5. DVT and GI PPx 6. Monitor clinically; she has a very poor prognosis but family have had unre asonable expectations re: her condition; family was not present today CCt 31 minutes Subjective Date of service: 01/27/19 Principal diagnosis: A/C respiratory failure Interval history: Awake, alert, on ventilator. Wanting to go home. No current complaints. Active Medications Acetaminophen (Tylenol) 650 mg PO Q4H PRN PRN Reason: Pain MILD(1-3)/Fever >100.5/[place] Last Admin: 01/22/19 15:00 Dose: 650 mg Documented by: Albuterol (Proventil) 2.5 mg IH Q3HRT PRN PRN Reason: Shortness Of Breath Lipase/Protease/Amylase (Pancreaze Dr 10,500 Unit) 1 each FEEDTUBE PRN PRN PRN Reason: For Clogged Feeding Tube Diphenhydramine HCl (Benadryl) 25 mg PO QHS PRN PRN Reason: Insomnia Last Admin: 01/26/19 21:32 Dose: 25 mg Documented by: Enoxaparin Sodium (Lovenox) 40 mg SUB-Q DAILY [facility] Last Admin: 01/27/19 09:24 Dose: 40 mg Documented by: Fentanyl (Duragesic) 50 mcg TD Q3D [facility] Last Admin: 01/26/19 13:35 Dose: 50 mcg Documented by: Guaifenesin (Guaifenesin Dm Syrup) 10 ml PO Q4H PRN PRN Reason: Cough Hydromorphone HCl (Dilaudid) 0.5 mg IV Q3H PRN PRN Reason: Pain , Severe (7-10) Last Admin: 01/27/19 03:47 Dose: 0.5 mg Documented by: Lansoprazole (Prevacid Solutab) 30 mg FEEDTUBE QDAY [facility] Last Admin: 01/27/19 09:24 Dose: 30 mg Documented by: Lorazepam (Ativan) 1 mg IV Q6H PRN PRN Reason: Anxiety Last Admin: 01/25/19 20:43 Dose: 1 mg Documented by: Metoprolol Tartrate (Lopressor) 12.5 mg PO BID [facility] Last Admin: 01/27/19 09:26 Dose: Not Given Documented by: Ondansetron HCl (Zofran) 4 mg IV Q8H PRN PRN Reason: Nausea And Vomiting Oxycodone/Acetaminophen (Percocet 5/325) 2 tab PO Q4H PRN PRN Reason: Pain, Moderate (4-6) Last Admin: 01/27/19 11:24 Dose: 2 tab Documented by: Pregabalin (Lyrica) 150 mg PO QDAY [facility] Last Admin: 01/27/19 09:27 Dose: 150 mg Documented by: Simethicone (Mylicon) 80 mg PO Q6H PRN PRN Reason: Gas pain Last Admin: 01/22/19 13:24 Dose: 80 mg Documented by: Simple Syrup (Simple Syrup) 15 ml FEEDTUBE PRN PRN PRN Reason: Hypoglycemia Simple Syrup (Simple Syrup) 30 ml FEEDTUBE PRN PRN PRN Reason: Hypoglycemia Sodium Bicarbonate (Sodium Bicarbonate) 325 mg FEEDTUBE PRN PRN PRN Reason: For Clogged Feeding Tube Sodium Chloride (Sodium Chloride Flush Syringe 10 Ml) 10 ml IV BID [facility] Last Admin: 01/27/19 09:28 Dose: 10 ml Documented by: Sodium Chloride (Sodium Chloride Flush Syringe 10 Ml) 10 ml IV PRN PRN PRN Reason: LINE FLUSH Objective Vital Signs - 12hr 01/27/19 01/27/19 01/27/19 05:00 05:30 06:00 Temperature Pulse Rate 86 94 H 93 H Pulse Rate [ From Monitor] Respiratory 19 22 22 Rate Blood Pressure 124/56 118/53 107/56 O2 Sat by Pulse 88 92 89 Oximetry O2 Sat by Pulse Oximetry [ Assessment] 01/27/19 01/27/19 01/27/19 06:28 06:30 07:00 Temperature Pulse Rate 93 H 104 H Pulse Rate [ From Monitor] Respiratory 21 20 Rate Blood Pressure 110/56 108/86 O2 Sat by Pulse 89 96 96 Oximetry O2 Sat by Pulse Oximetry [ Assessment] 01/27/19 01/27/19 01/27/19 07:16 07:22 07:30 Temperature Pulse Rate 110 H 103 H Pulse Rate [ From Monitor] Respiratory 28 H Rate Blood Pressure 108/86 107/33 O2 Sat by Pulse 96 96 Oximetry O2 Sat by Pulse 98 Oximetry [ Assessment] 01/27/19 01/27/19 01/27/19 08:00 08:30 09:00 Temperature 98.3 F Pulse Rate 88 102 H 87 Pulse Rate [ 95 H From Monitor] Respiratory 18 28 H 18 Rate Blood Pressure 93/52 115/67 110/71 O2 Sat by Pulse 95 95 97 Oximetry O2 Sat by Pulse Oximetry [ Assessment] 01/27/19 01/27/19 01/27/19 09:26 09:30 10:00 Temperature Pulse Rate 88 89 Pulse Rate [ From Monitor] Respiratory 17 14 Rate Blood Pressure 110/60 105/59 97/58 O2 Sat by Pulse 95 97 Oximetry O2 Sat by Pulse Oximetry [ Assessment] 01/27/19 01/27/19 01/27/19 10:30 11:00 11:17 Temperature Pulse Rate 88 95 H 91 H Pulse Rate [ From Monitor] Respiratory 16 16 Rate Blood Pressure 103/56 104/64 104/64 O2 Sat by Pulse 96 95 98 Oximetry O2 Sat by Pulse Oximetry [ Assessment] 01/27/19 01/27/19 01/27/19 11:30 12:00 12:30 Temperature 98.6 F Pulse Rate 91 H 90 96 H Pulse Rate [ From Monitor] Respiratory 16 22 14 Rate Blood Pressure 108/55 104/59 104/60 O2 Sat by Pulse 96 96 95 Oximetry O2 Sat by Pulse Oximetry [ Assessment] 01/27/19 01/27/19 01/27/19 13:00 13:30 14:00 Temperature Pulse Rate 91 H 83 98 H Pulse Rate [ 86 From Monitor] Respiratory 19 16 21 Rate Blood Pressure 104/60 108/60 111/66 O2 Sat by Pulse 96 96 97 Oximetry O2 Sat by Pulse Oximetry [ Assessment] 01/27/19 01/27/19 14:30 16:00 Temperature Pulse Rate 90 84 Pulse Rate [ From Monitor] Respiratory 18 Rate Blood Pressure 121/60 112/64 O2 Sat by Pulse 97 98 Oximetry O2 Sat by Pulse 95 Oximetry [ Assessment] Constitutional: other (critically ill on vent) Eyes: non-icteric ENT: oropharynx moist Neck: supple, other (trach is midline) Effort: normal Ascultation: Bilateral: other (coarse BS bilaterally) Percussion: Bilateral: not dull Cardiovascular: regular rate and rhythm (no mrg) Gastrointestinal: normoactive bowel sounds, soft, non-distended, other (peg tube) Extremities: no edema, pink and warm Neurologic: normal mental status, non-focal exam, pupils equal and round Psychiatric: mood appropriate, affect normal CBC and BMP: 01/23/19 04:05 01/24/19 04:29 ABG, PT/INR, D-dimer: ABG POC ABG pH 7.368 (7.35-7.45) 01/26/19 03:59 POC ABG pCO2 55.6 (35-45) H 01/26/19 03:59 POC ABG pO2 69 (80-105) L 01/26/19 03:59 POC ABG HCO3 32.0 (22-26 mml/L) 01/26/19 03:59 POC ABG Total CO2 34 (23-27mmol/L) 01/26/19 03:59 POC ABG O2 Sat 92 01/26/19 03:59 Abnormal lab findings: Abnormal Labs 01/21/19 01/21/19 01/21/19 03:49 03:57 09:40 RBC Hgb Hct MCV MCH RDW Lymph % (Auto) [place] % (Auto) Lymph # Seg Neutrophils % Seg Neutrophils # POC ABG pCO2 POC ABG pO2 57 L Carbon Dioxide BUN Creatinine Glucose POC Glucose 135 H Calcium Magnesium AST Total Protein Albumin Urine WBC (Auto) 17.0 H 01/21/19 01/21/19 01/21/19 Unknown Unknown Unknown RBC 2.64 L Hgb 8.6 L Hct 26.7 L MCV 101 H MCH 33 H RDW 20.2 H Lymph % (Auto) 4.1 L [place] % (Auto) 8.3 H Lymph # 0.4 L Seg Neutrophils % 85.4 H Seg Neutrophils # 8.4 H POC ABG pCO2 POC ABG pO2 Carbon Dioxide 31 H BUN 21 H Creatinine Glucose 104 H POC Glucose Calcium 8.2 L Magnesium 2.40 H AST 52 H Total Protein 5.8 L Albumin 2.8 L Urine WBC (Auto) 01/22/19 01/23/19 01/23/19 05:58 03:58 04:05 RBC 2.53 L Hgb 8.3 L Hct 26.0 L MCV 103 H MCH 33 H RDW 20.3 H Lymph % (Auto) 6.7 L [place] % (Auto) 10.0 H Lymph # 0.6 L Seg Neutrophils % 80.7 H Seg Neutrophils # POC ABG pCO2 48.8 H 50.4 H POC ABG pO2 64 L 62 L Carbon Dioxide BUN Creatinine Glucose POC Glucose Calcium Magnesium AST Total Protein Albumin Urine WBC (Auto) 01/23/19 01/24/19 01/24/19 04:05 04:29 04:34 RBC Hgb Hct MCV MCH RDW Lymph % (Auto) [place] % (Auto) Lymph # Seg Neutrophils % Seg Neutrophils # POC ABG pCO2 48.6 H POC ABG pO2 65 L Carbon Dioxide BUN Creatinine 0.4 L 0.4 L Glucose 127 H 114 H POC Glucose Calcium 7.6 L 7.9 L Magnesium AST Total Protein Albumin Urine WBC (Auto) 01/25/19 01/26/19 01/27/19 05:21 03:59 07:54 RBC Hgb Hct MCV MCH RDW Lymph % (Auto) [place] % (Auto) Lymph # Seg Neutrophils % Seg Neutrophils # POC ABG pCO2 52.7 H 55.6 H POC ABG pO2 65 L 69 L Carbon Dioxide BUN Creatinine Glucose POC Glucose 120 H Calcium Magnesium AST Total Protein Albumin Urine WBC (Auto) Chest x-ray: report reviewed, image reviewed (bilateral infiltrates and effusi ons, similar to 12/2018 [facility] CXRs)
[2019-01-27] MEDS: BENADRYL PO PRN (20:55)
[2019-01-27] MEDS: MYLICON PO PRN (20:55)
[2019-01-28] MEDS: PERCOCET 5/325 PO PRN ×5 (01:10→19:46)
[2019-01-28] MEDS: LOVENOX SUB-Q SCH (09:02)
[2019-01-28] MEDS: LOPRESSOR PO SCH ×2 (09:02→21:17)
[2019-01-28] MEDS: PREVACID SOLUTAB FEEDTUBE SCH (09:02)
[2019-01-28] MEDS: LYRICA PO SCH (09:02)
[2019-01-28] MEDS: SODIUM CHLORIDE FLUSH SYRINGE 10 ML IV SCH ×2 (09:02→21:18)
[2019-01-28] MEDS: ATIVAN IV PRN ×3 (12:16→23:04)
[2019-01-28] MEDS ORDERED: CATHFLO IV ONE (13:00)
[2019-01-28] MEDS ORDERED: WATER FOR INJ Sterile (PF) 10 ML ONE (14:17)
[2019-01-28] MEDS ORDERED: WATER FOR INJ Sterile (PF) IV ONE (15:00)
--- NOTE | 2019-01-28 15:06 | Progress Note ---
Assessment and Plan Imp: 1. Metastatic breast cancer; essentially appears she has end-stage disease 2. Malignant pleural effusions, loculated on the R, with R PleurX POA 3. Pericardial effusion s/p window 08/2018; previous Echo 11/2018 negative for tamponade 4. A/C respiratory failure s/p Trach; believe this is primarily due to #'s 1 and 2 5. ? UTI/Sepsis Rec: 1. Daily PSV trials although I do not believe she will ultimately be fully weanable to Tpiece or Trach collar, after failure to wean at [facility] 12/14/18 - 01/20/19; she was denied admission to long-term ventilator facilities due to PleurX, and family refuses hospice; it seems the only option would be her going home with family, on mechanical ventilation, although family is refusing that as well; cont. to work with case management re: options 2. Finished ABX 3. I doubt that placing a L sided chest tube would change her clinical status; D/c Pleurovac; drain PleurX every other day and stretch it out farther PRN depending on output 4. TFs per PEG 5. DVT and GI PPx 6. Add low-dose Klonopin due to anxiety on PSV 7. Monitor clinically; she has a very poor prognosis but family have had unreasonable expectations re: her condition; family was not present today (only nephew with whom I shared no details) CCt 31 minutes Subjective Date of service: 01/28/19 Principal diagnosis: A/C respiratory failure Interval history: Awake, alert, on ventilator. Wanting to go home. Tolerating PSV 07/12 but + anxiety and episodic tachypnea. Active Medications Acetaminophen (Tylenol) 650 mg PO Q4H PRN PRN Reason: Pain MILD(1-3)/Fever >100.5/SPRING Last Admin: 01/22/19 15:00 Dose: 650 mg Documented by: Albuterol (Proventil) 2.5 mg IH Q3HRT PRN PRN Reason: Shortness Of Breath Lipase/Protease/Amylase (Neo Arreguin 10,500 Unit) 1 each FEEDTUBE PRN PRN PRN Reason: For Clogged Feeding Tube Clonazepam (Klonopin) 0.5 mg PO TID [facility] Last Admin: 01/28/19 14:22 Dose: 0.5 mg Documented by: Diphenhydramine HCl (Benadryl) 25 mg PO QHS PRN PRN Reason: Insomnia Last Admin: 01/27/19 20:55 Dose: 25 mg Documented by: Enoxaparin Sodium (Lovenox) 40 mg SUB-Q DAILY [facility] Last Admin: 01/28/19 09:02 Dose: 40 mg Documented by: Fentanyl (Duragesic) 50 mcg TD Q3D [facility] Last Admin: 01/26/19 13:35 Dose: 50 mcg Documented by: Guaifenesin (Guaifenesin Dm Syrup) 10 ml PO Q4H PRN PRN Reason: Cough Hydromorphone HCl (Dilaudid) 0.5 mg IV Q3H PRN PRN Reason: Pain , Severe (7-10) Last Admin: 01/27/19 03:47 Dose: 0.5 mg Documented by: Lansoprazole (Prevacid Solutab) 30 mg FEEDTUBE QDAY [facility] Last Admin: 01/28/19 09:02 Dose: 30 mg Documented by: Lorazepam (Ativan) 1 mg IV Q6H PRN PRN Reason: Anxiety Last Admin: 01/28/19 12:16 Dose: 1 mg Documented by: Metoprolol Tartrate (Lopressor) 12.5 mg PO BID [facility] Last Admin: 01/28/19 09:02 Dose: 12.5 mg Documented by: Ondansetron HCl (Zofran) 4 mg IV Q8H PRN PRN Reason: Nausea And Vomiting Oxycodone/Acetaminophen (Percocet 5/325) 2 tab PO Q4H PRN PRN Reason: Pain, Moderate (4-6) Last Admin: 01/28/19 08:56 Dose: 2 tab Documented by: Pregabalin (Lyrica) 150 mg PO QDAY [facility] Last Admin: 01/28/19 09:02 Dose: 150 mg Documented by: Simethicone (Mylicon) 80 mg PO Q6H PRN PRN Reason: Gas pain Last Admin: 01/27/19 20:55 Dose: 80 mg Documented by: Simple Syrup (Simple Syrup) 15 ml FEEDTUBE PRN PRN PRN Reason: Hypoglycemia Simple Syrup (Simple Syrup) 30 ml FEEDTUBE PRN PRN PRN Reason: Hypoglycemia Sodium Bicarbonate (Sodium Bicarbonate) 325 mg FEEDTUBE PRN PRN PRN Reason: For Clogged Feeding Tube Sodium Chloride (Sodium Chloride Flush Syringe 10 Ml) 10 ml IV BID [facility] Last Admin: 01/28/19 09:02 Dose: 10 ml Documented by: Sodium Chloride (Sodium Chloride Flush Syringe 10 Ml) 10 ml IV PRN PRN PRN Reason: LINE FLUSH Objective Vital Signs - 12hr 01/28/19 01/28/19 01/28/19 03:30 03:31 03:49 Temperature 98.8 F Pulse Rate 85 92 H Pulse Rate [ From Monitor] Respiratory 19 Rate Blood Pressure 102/59 102/59 O2 Sat by Pulse 95 95 Oximetry 01/28/19 01/28/19 01/28/19 04:00 04:30 05:00 Temperature Pulse Rate 95 H 85 82 Pulse Rate [ 89 From Monitor] Respiratory 26 H 23 18 Rate Blood Pressure 93/69 93/69 93/54 O2 Sat by Pulse 95 96 Oximetry 01/28/19 01/28/19 01/28/19 05:30 06:00 06:30 Temperature Pulse Rate 81 85 77 Pulse Rate [ From Monitor] Respiratory 18 24 16 Rate Blood Pressure 85/55 106/63 107/56 O2 Sat by Pulse 95 96 98 Oximetry 01/28/19 01/28/19 01/28/19 07:00 07:30 08:00 Temperature 97.8 F Pulse Rate 83 82 85 Pulse Rate [ 77 From Monitor] Respiratory 16 16 17 Rate Blood Pressure 107/56 101/53 107/53 O2 Sat by Pulse 96 98 97 Oximetry 01/28/19 01/28/19 01/28/19 08:30 09:00 09:02 Temperature Pulse Rate 90 91 H 92 H Pulse Rate [ From Monitor] Respiratory 21 22 Rate Blood Pressure 114/56 106/55 106/55 O2 Sat by Pulse 96 98 Oximetry 01/28/19 01/28/19 01/28/19 09:29 09:30 09:38 Temperature Pulse Rate 88 88 69 Pulse Rate [ From Monitor] Respiratory 22 24 Rate Blood Pressure 106/55 114/56 93/54 O2 Sat by Pulse 98 99 94 Oximetry 01/28/19 01/28/19 01/28/19 10:00 10:30 11:00 Temperature Pulse Rate 79 76 85 Pulse Rate [ From Monitor] Respiratory 30 H 30 H 18 Rate Blood Pressure 98/62 105/63 114/66 O2 Sat by Pulse 93 94 93 Oximetry 01/28/19 01/28/19 01/28/19 11:23 11:30 12:00 Temperature Pulse Rate 73 72 92 H Pulse Rate [ 86 From Monitor] Respiratory 16 15 39 H Rate Blood Pressure 114/66 113/58 112/65 O2 Sat by Pulse 96 97 92 Oximetry 01/28/19 01/28/19 01/28/19 12:30 13:00 13:30 Temperature Pulse Rate 87 91 H 89 Pulse Rate [ From Monitor] Respiratory 20 18 15 Rate Blood Pressure 120/59 113/56 116/60 O2 Sat by Pulse 97 97 96 Oximetry 01/28/19 01/28/19 14:00 14:30 Temperature Pulse Rate 97 H 103 H Pulse Rate [ From Monitor] Respiratory 24 32 H Rate Blood Pressure 130/48 118/38 O2 Sat by Pulse 96 95 Oximetry Constitutional: other (critically ill on vent) Eyes: non-icteric ENT: oropharynx moist Neck: supple, other (trach is midline) Effort: normal Ascultation: Bilateral: other (coarse BS bilaterally) Cardiovascular: regular rate and rhythm (no mrg) Gastrointestinal: normoactive bowel sounds, soft, non-distended, other (peg tube) Extremities: no edema, pink and warm Neurologic: normal mental status, non-focal exam, pupils equal and round Psychiatric: mood appropriate, affect normal CBC and BMP: 01/23/19 04:05 01/24/19 04:29 ABG, PT/INR, D-dimer: ABG POC ABG pH 7.368 (7.35-7.45) 01/26/19 03:59 POC ABG pCO2 55.6 (35-45) H 01/26/19 03:59 POC ABG pO2 69 (80-105) L 01/26/19 03:59 POC ABG HCO3 32.0 (22-26 mml/L) 01/26/19 03:59 POC ABG Total CO2 34 (23-27mmol/L) 01/26/19 03:59 POC ABG O2 Sat 92 01/26/19 03:59 Abnormal lab findings: Abnormal Labs 01/21/19 01/21/19 01/21/19 03:49 03:57 09:40 RBC Hgb Hct MCV MCH RDW Lymph % (Auto) [place] % (Auto) Lymph # Seg Neutrophils % Seg Neutrophils # POC ABG pCO2 POC ABG pO2 57 L Carbon Dioxide BUN Creatinine Glucose POC Glucose 135 H Calcium Magnesium AST Total Protein Albumin Urine WBC (Auto) 17.0 H 01/21/19 01/21/19 01/21/19 Unknown Unknown Unknown RBC 2.64 L Hgb 8.6 L Hct 26.7 L MCV 101 H MCH 33 H RDW 20.2 H Lymph % (Auto) 4.1 L [place] % (Auto) 8.3 H Lymph # 0.4 L Seg Neutrophils % 85.4 H Seg Neutrophils # 8.4 H POC ABG pCO2 POC ABG pO2 Carbon Dioxide 31 H BUN 21 H Creatinine Glucose 104 H POC Glucose Calcium 8.2 L Magnesium 2.40 H AST 52 H Total Protein 5.8 L Albumin 2.8 L Urine WBC (Auto) 01/22/19 01/23/19 01/23/19 05:58 03:58 04:05 RBC 2.53 L Hgb 8.3 L Hct 26.0 L MCV 103 H MCH 33 H RDW 20.3 H Lymph % (Auto) 6.7 L [place] % (Auto) 10.0 H Lymph # 0.6 L Seg Neutrophils % 80.7 H Seg Neutrophils # POC ABG pCO2 48.8 H 50.4 H POC ABG pO2 64 L 62 L Carbon Dioxide BUN Creatinine Glucose POC Glucose Calcium Magnesium AST Total Protein Albumin Urine WBC (Auto) 01/23/19 01/24/19 01/24/19 04:05 04:29 04:34 RBC Hgb Hct MCV MCH RDW Lymph % (Auto) [place] % (Auto) Lymph # Seg Neutrophils % Seg Neutrophils # POC ABG pCO2 48.6 H POC ABG pO2 65 L Carbon Dioxide BUN Creatinine 0.4 L 0.4 L Glucose 127 H 114 H POC Glucose Calcium 7.6 L 7.9 L Magnesium AST Total Protein Albumin Urine WBC (Auto) 01/25/19 01/26/19 01/27/19 05:21 03:59 07:54 RBC Hgb Hct MCV MCH RDW Lymph % (Auto) [place] % (Auto) Lymph # Seg Neutrophils % Seg Neutrophils # POC ABG pCO2 52.7 H 55.6 H POC ABG pO2 65 L 69 L Carbon Dioxide BUN Creatinine Glucose POC Glucose 120 H Calcium Magnesium AST Total Protein Albumin Urine WBC (Auto) Chest x-ray: report reviewed, image reviewed
[2019-01-28] MEDS: BENADRYL PO PRN (22:44)
[2019-01-29] MEDS: PERCOCET 5/325 PO PRN ×4 (02:28→21:12)
[2019-01-29 04:16] LABS: Alanine Aminotransferase 12 units/L (7-56); Albumin 2.3 g/dL (3.9-5); BUN/Creatinine Ratio 32; Blood Urea Nitrogen 16 mg/dL (7-17); Calcium 7.8 mg/dL (8.4-10.2); Hemolysis Index 3
[2019-01-29 04:17] LABS: Hematocrit 27.1 % (30.3-42.9); Hemoglobin 8.5 gm/dl (10.1-14.3); Mean Corpuscular HGB Conc 32 % (30-34); Mean Corpuscular Volume 102 fl (79-97); Platelet Count 223 K/mm3 (140-440); Red Blood Count 2.66 M/mm3 (3.65-5.03); Red Cell Distribution Width 20.3 % (13.2-15.2)
[2019-01-29] MEDS: ATIVAN IV PRN ×2 (06:34→12:10)
[2019-01-29 06:48] LABS: Eosinophils # (Auto) 0.1 K/mm3 (0.0-0.4); Eosinophils % (Auto) 1.4 % (0.0-4.3); Monocytes # (Auto) 0.8 K/mm3 (0.0-0.8); Monocytes % (Auto) 11.2 % (0.0-7.3)
[2019-01-29 07:43] LABS: Band Neutrophils # (Manual) 0.1 K/mm3; Eosinophils % (Manual) 0 % (0.0-4.3); Total Cells Counted 100
[2019-01-29 07:44] LABS: Anisocytosis 1+; Platelet Estimate Consistent w Auto; Poikilocytosis Few; Spherocytes Rare
[2019-01-29] MEDS: PREVACID SOLUTAB FEEDTUBE SCH (09:49)
[2019-01-29] MEDS: LYRICA PO SCH (09:49)
[2019-01-29] MEDS: LOPRESSOR PO SCH ×2 (09:50→21:13)
[2019-01-29] MEDS: LOVENOX SUB-Q SCH (09:50)
[2019-01-29] MEDS: SODIUM CHLORIDE FLUSH SYRINGE 10 ML IV SCH (09:51)
--- NOTE | 2019-01-29 11:50 | Progress Note ---
Assessment and Plan Assessment and plan: Septic shock -Probably secondary to UTI, now resolved -Off IV pressor and antibiotic -Urine and blood cultures negative so far. Acute on chronic respiratory failure with hypoxia, resolved -Status post tracheostomy with mechanical ventilator dependence -Pulmonology following Acute toxic encephalopathy -Likely medication induced -Resolved -Head CT scan negative for acute findings. Stage IV breast cancer with metastases to the bone -Hospice recommended -Continue pain management. Bilateral pleural effusion -Likely malignant -s/p bilateral pleural catheter placement for drainage -LT catheter removed, RT remains in place and draining Anemia of chronic disease -H/H stable History of hypertension -Blood pressure trending up, home Lopressor resumed, will monitor Severe protein calorie malnutrition -Status post PEG tube placement on tube feeding -Nutrition following DVT prophylaxis with Lovenox Disposition: Patient's overall prognosis is very poor and hospice has been recommended. Pt is at her baseline. 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 Time spent: 35 minutes Hospitalist Physical - Constitutional Vitals: Temp Pulse Resp BP Pulse Ox 98.4 F 95 H 27 H 94/41 93 01/29/19 08:00 01/29/19 11:30 01/29/19 11:30 01/29/19 11:30 01/29/19 11:30 General appearance: Present: no acute distress Results - Labs CBC & Chem 7: 01/29/19 03:17 01/29/19 03:17 Labs: Laboratory Last Values WBC 7.4 K/mm3 (4.5-11.0) 01/29/19 03:17 RBC 2.66 M/mm3 (3.65-5.03) L 01/29/19 03:17 Hgb 8.5 gm/dl (10.1-14.3) L 01/29/19 03:17 Hct 27.1 % (30.3-42.9) L 01/29/19 03:17 MCV 102 fl (79-97) H 01/29/19 03:17 MCH 32 pg (28-32) 01/29/19 03:17 MCHC 32 % (30-34) 01/29/19 03:17 RDW 20.3 % (13.2-15.2) H 01/29/19 03:17 Plt Count 223 K/mm3 (140-440) 01/29/19 03:17 Lymph % (Auto) 6.7 % (13.4-35.0) L 01/23/19 04:05 [place] % (Auto) 11.2 % (0.0-7.3) H 01/29/19 03:17 Eos % (Auto) 1.4 % (0.0-4.3) 01/29/19 03:17 Baso % (Auto) 0.3 % (0.0-1.8) 01/23/19 04:05 Lymph # 0.6 K/mm3 (1.2-5.4) L 01/23/19 04:05 Ocean # 0.8 K/mm3 (0.0-0.8) 01/29/19 03:17 Eos # 0.1 K/mm3 (0.0-0.4) 01/29/19 03:17 Baso # 0.0 K/mm3 (0.0-0.1) 01/29/19 03:17 Add Manual Diff Complete 01/29/19 03:17 Total Counted 100 01/29/19 03:17 Seg Neutrophils % 75.6 % (40.0-70.0) H 01/29/19 03:17 Seg Neuts % (Manual) 85.0 % (40.0-70.0) H 01/29/19 03:17 1.0 % 01/29/19 03:17 8.0 % (13.4-35.0) L 01/29/19 03:17 Reactive Lymphs % (Man) 0 % 01/29/19 03:17 5.0 % (0.0-7.3) 01/29/19 03:17 0 % (0.0-4.3) 01/29/19 03:17 1.0 % (0.0-1.8) 01/29/19 03:17 0 % 01/29/19 03:17 0 % 01/29/19 03:17 0 % 01/29/19 03:17 0 % 01/29/19 03:17 Nucleated RBC % Not Reportable 01/29/19 03:17 Seg Neutrophils # 5.6 K/mm3 (1.8-7.7) 01/29/19 03:17 Seg Neutrophils # Man 6.3 K/mm3 (1.8-7.7) 01/29/19 03:17 Band Neutrophils # 0.1 K/mm3 01/29/19 03:17 0.6 K/mm3 (1.2-5.4) L 01/29/19 03:17 Abs React Lymphs (Man) 0.0 K/mm3 01/29/19 03:17 0.4 K/mm3 (0.0-0.8) 01/29/19 03:17 0.0 K/mm3 (0.0-0.4) 01/29/19 03:17 0.1 K/mm3 (0.0-0.1) 01/29/19 03:17 0.0 K/mm3 01/29/19 03:17 0.0 K/mm3 01/29/19 03:17 0.0 K/mm3 01/29/19 03:17 Blast Cells # 0.0 K/mm3 01/29/19 03:17 WBC Morphology Not Reportable 01/29/19 03:17 Hypersegmented Neuts Not Reportable 01/29/19 03:17 Hyposegmented Neuts Not Reportable 01/29/19 03:17 Hypogranular Neuts Not Reportable 01/29/19 03:17 Not Reportable 01/29/19 03:17 Not Reportable 01/29/19 03:17 Not Reportable 01/29/19 03:17 Not Reportable 01/29/19 03:17 Not Reportable 01/29/19 03:17 Not Reportable 01/29/19 03:17 Consistent w auto 01/29/19 03:17 Not Reportable 01/29/19 03:17 Plt Clumps, EDTA Not Reportable 01/29/19 03:17 Not Reportable 01/29/19 03:17 Not Reportable 01/29/19 03:17 Not Reportable 01/29/19 03:17 Plt Morphology Comment Not Reportable 01/29/19 03:17 RBC Morphology Not Reportable 01/29/19 03:17 Dimorphic RBCs Not Reportable 01/29/19 03:17 Not Reportable 01/29/19 03:17 Not Reportable 01/29/19 03:17 Few 01/29/19 03:17 1+ 01/29/19 03:17 Not Reportable 01/29/19 03:17 Not Reportable 01/29/19 03:17 Rare 01/29/19 03:17 Not Reportable 01/29/19 03:17 Not Reportable 01/29/19 03:17 Not Reportable 01/29/19 03:17 Not Reportable 01/29/19 03:17 Not Reportable 01/29/19 03:17 Not Reportable 01/29/19 03:17 Not Reportable 01/29/19 03:17 Not Reportable 01/29/19 03:17 Not Reportable 01/29/19 03:17 Not Reportable 01/29/19 03:17 Not Reportable 01/29/19 03:17 Few 01/29/19 03:17 Acanthocytes (Spur) Not Reportable 01/29/19 03:17 Rouleaux Not Reportable 01/29/19 03:17 Not Reportable 01/29/19 03:17 Not Reportable 01/29/19 03:17 Not Reportable 01/29/19 03:17 Not Reportable 01/29/19 03:17 Hem Pathologist Commnt No 01/29/19 03:17 POC ABG pH 7.368 (7.35-7.45) 01/26/19 03:59 POC ABG pCO2 55.6 (35-45) H 01/26/19 03:59 POC ABG pO2 69 (80-105) L 01/26/19 03:59 POC ABG HCO3 32.0 (22-26 mml/L) 01/26/19 03:59 POC ABG Total CO2 34 (23-27mmol/L) 01/26/19 03:59 POC ABG O2 Sat 92 01/26/19 03:59 POC ABG Base Excess 7 ((-2) - (+3)mmol/L) 01/26/19 03:59 VBG pH 7.344 (7.320-7.420) 01/21/19 06:55 40 % 01/26/19 03:59 Sodium 140 mmol/L (137-145) 01/29/19 03:17 Potassium 4.4 mmol/L (3.6-5.0) 01/29/19 03:17 Chloride 100.2 mmol/L (98-107) 01/29/19 03:17 Carbon Dioxide 33 mmol/L (22-30) H 01/29/19 03:17 11 mmol/L 01/29/19 03:17 BUN 16 mg/dL (7-17) 01/29/19 03:17 0.5 mg/dL (0.7-1.2) L 01/29/19 03:17 Estimated GFR > 60 ml/min 01/29/19 03:17 32 % 01/29/19 03:17 Glucose 92 mg/dL (65-100) 01/29/19 03:17 POC Glucose 120 (70-105) H 01/27/19 07:54 Lactic Acid 1.90 mmol/L (0.7-2.0) 01/21/19 Unknown Calcium 7.8 mg/dL (8.4-10.2) L 01/29/19 03:17 Phosphorus 3.20 mg/dL (2.5-4.5) 01/29/19 03:17 Magnesium 2.30 mg/dL (1.7-2.3) 01/29/19 03:17 < 0.20 mg/dL (0.1-1.2) 01/29/19 03:17 AST 56 units/L (5-40) H 01/29/19 03:17 ALT 12 units/L (7-56) 01/29/19 03:17 140 units/L (35-129) H 01/29/19 03:17 0.027 ng/mL (0.00-0.029) 01/21/19 Unknown 5.2 g/dL (6.3-8.2) L 01/29/19 03:17 2.3 g/dL (3.9-5) L 01/29/19 03:17 0.8 % 01/29/19 03:17 Yellow (Yellow) 01/21/19 03:49 Slightly-cloudy (Clear) 01/21/19 03:49 5.0 (5.0-7.0) 01/21/19 03:49 Ur Specific [place] 1.016 (1.003-1.030) 01/21/19 03:49 30 mg/dl mg/dL (Negative) 01/21/19 03:49 Neg mg/dL (Negative) 01/21/19 03:49 Tr mg/dL (Negative) 01/21/19 03:49 Neg (Negative) 01/21/19 03:49 Neg (Negative) 01/21/19 03:49 Neg (Negative) 01/21/19 03:49 < 2.0 mg/dL (<2.0) 01/21/19 03:49 Ur Leukocyte Esterase Sm (Negative) 01/21/19 03:49 17.0 /HPF (0.0-6.0) H 01/21/19 03:49 4.0 /HPF (0.0-6.0) 01/21/19 03:49 U Epithel Cells (Auto) 1.0 /HPF (0-13.0) 01/21/19 03:49 Few /HPF 01/21/19 03:49 Hyaline Casts 3 /LPF 01/21/19 03:49 Granular Casts 1 /LPF 01/21/19 03:49 Few /HPF 01/21/19 03:49 3+ /HPF 01/21/19 03:49 Active Medications - Current Medications Current Medications: Generic Name Dose Route Start Last Admin Trade Name Freq PRN Reason Stop Dose Admin Acetaminophen 650 mg 01/21/19 05:25 01/22/19 15:00 Tylenol PO 650 mg Q4H PRN Administration Pain MILD(1-3)/Fever >100.5/SPRING Albuterol 2.5 mg 01/21/19 05:25 Proventil IH Q3HRT PRN Shortness Of Breath Lipase/Protease/Amylase 1 each 01/21/19 15:[address] 10,500 Unit FEEDTUBE PRN PRN For Clogged Feeding Tube Clonazepam 0.5 mg 01/28/19 14:00 01/29/19 09:20 Klonopin PO 0.5 mg TID [facility] Administration Diphenhydramine HCl 25 mg 01/24/19 08:15 01/28/19 22:44 Benadryl PO 25 mg QHS PRN Administration Insomnia Enoxaparin Sodium 40 mg 01/22/19 13:00 01/29/19 09:50 Lovenox SUB-Q 40 mg DAILY [facility] Administration Fentanyl 50 mcg 01/26/19 14:00 01/26/19 13:35 Duragesic TD 50 mcg Q3D [facility] Administration Guaifenesin 10 ml 01/21/19 06:05 Guaifenesin Dm Syrup PO Q4H PRN Cough Hydromorphone HCl 0.5 mg 01/21/19 05:25 01/27/19 03:47 Dilaudid IV 0.5 mg Q3H PRN Administration Pain , Severe (7-10) Lansoprazole 30 mg 01/22/19 13:00 01/29/19 09:49 Prevacid Solutab FEEDTUBE 30 mg QDAY [facility] Administration Lorazepam 1 mg 01/24/19 14:47 01/29/19 06:34 Ativan IV 1 mg Q6H PRN Administration Anxiety Metoprolol Tartrate 12.5 mg 01/24/19 10:00 01/29/19 09:50 Lopressor PO 12.5 mg BID [facility] Administration Ondansetron HCl 4 mg 01/21/19 05:25 Zofran IV Q8H PRN Nausea And Vomiting Oxycodone/Acetaminophen 2 tab 01/22/19 20:25 01/29/19 02:28 Percocet 5/325 PO 2 tab Q4H PRN Administration Pain, Moderate (4-6) Pregabalin 150 mg 01/24/19 10:00 01/29/19 09:49 Lyrica PO 150 mg QDAY [facility] Administration Simethicone 80 mg 01/22/19 12:00 01/27/19 20:55 Mylicon PO 80 mg Q6H PRN Administration Gas pain Simple Syrup 15 ml 01/21/19 15:02 Simple Syrup FEEDTUBE PRN PRN Hypoglycemia Simple Syrup 30 ml 01/21/19 15:02 Simple Syrup FEEDTUBE PRN PRN Hypoglycemia Sodium Bicarbonate 325 mg 01/21/19 15:02 Sodium Bicarbonate FEEDTUBE PRN PRN For Clogged Feeding Tube Sodium Chloride 10 ml 01/21/19 10:00 01/29/19 09:51 Sodium Chloride Flush Syringe 10 Ml IV 10 ml BID [facility] Administration Sodium Chloride 10 ml 01/21/19 05:25 01/28/19 23:04 Sodium Chloride Flush Syringe 10 Ml IV 10 ml PRN PRN Administration LINE FLUSH Nutrition/Malnutrition Assess - Dietary Evaluation Nutrition/Malnutrition Findings: Nutrition Notes Start: 01/21/19 13:38 Freq: Status: Active Protocol: Document 01/28/19 11:28 LP (Rec: 01/28/19 11:32 LP [id number]) Nutrition Notes Initial or Follow up Reassessment Current Diagnosis Sepsis,Respiratory Failure Other Pertinent Diagnosis AMS, Metastatic breast CA, UTI Current Diet Osmolite 1.5 at 45ml/hr Labs/Tests Reviewed Pertinent Medications Reviewed Height 5 ft 5 in Weight 72.575 kg [place] Body Weight (kg) 56.81 BMI 26.6 Subjective/Other Information Pt family does not want her on hospice. Pt tolerating TF at goal rate. Percent of energy/protein needs met: 100%/78% Burn Absent Trauma Absent #1 Nutrition Diagnosis Inadequate oral intake Diagnosis Progress(for reassessment Continues documentation) Is patient on ventilator? Yes Is Patient Ambulatory and/or Out of Bed No REE-([place]-St. Jeor-confined to bed) [phone] Calculation Used for Recommendations [place] Jeor Additional Notes Pro needs 1.2-2g/k-145g/ day Fluid needs 1ml/kcal Nutrition Intervention Change Diet Order: TF Nutrition Support: Osmolite 1.5 at 45ml/hr with 150ml water flush q4h. Kcal 1,620 Protein (gm) 68 Fluid (mL) 823 Goal #1 TF tolerance Goal #2 TF at goal rate to meet at least 75% energy and pro needs Anticipated Discharge Needs: Continue TF Follow-Up By: 02/03/19 Additional Comments Follow for TF tolerance
[2019-01-29] MEDS: MYLICON PO PRN (12:10)
[2019-01-29] MEDS: DURAGESIC TD SCH (13:59)
[2019-01-29] MEDS ORDERED: PERCOCET 5/325 PO SCH (14:00)
--- NOTE | 2019-01-29 18:07 | Progress Note ---
Assessment and Plan Imp: 1. Metastatic breast cancer; essentially appears she has end-stage disease 2. Malignant pleural effusions, loculated on the R, with R PleurX POA 3. Pericardial effusion s/p window 08/2018; previous Echo 11/2018 negative for tamponade 4. A/C respiratory failure s/p Trach; believe this is primarily due to #'s 1 and 2 5. ? UTI/Sepsis Rec: 1. Daily PSV trials although I do not believe she will ultimately be fully weanable to Tpiece or Trach collar, after failure to wean at [facility] 12/14/18 - 01/20/19; working on placement 2. Finished ABX 3. I doubt that placing a L sided chest tube would change her clinical status; D/c Pleurovac; drain PleurX every other day and stretch it out farther PRN depending on output 4. TFs per PEG 5. DVT and GI PPx 6. Klonopin 1mg BID due to anxiety on PSV 7. Patient with metastatic, terminal cancer so should be sure she is not having any pain -> titrate prn 8. Monitor clinically; she has a very poor prognosis but family have had unreasonable expectations re: her condition; family was not present today CCt 31 minutes Subjective Date of service: 01/29/19 Principal diagnosis: A/C respiratory failure Interval history: Awake, alert, on ventilator. Wanting to go home. Tolerating PSV 15/6 but + anxiety and episodic tachypnea, better on Klonopin. Getting Percocet around the clock. Active Medications Acetaminophen (Tylenol) 650 mg PO Q4H PRN PRN Reason: Pain MILD(1-3)/Fever >100.5/[place] Last Admin: 01/22/19 15:00 Dose: 650 mg Documented by: Albuterol (Proventil) 2.5 mg IH Q3HRT PRN PRN Reason: Shortness Of Breath Lipase/Protease/Amylase (Neo Arreguin 10,500 Unit) 1 each FEEDTUBE PRN PRN PRN Reason: For Clogged Feeding Tube Clonazepam (Klonopin) 1 mg PO BID [place] Diphenhydramine HCl (Benadryl) 25 mg PO QHS PRN PRN Reason: Insomnia Last Admin: 01/28/19 22:44 Dose: 25 mg Documented by: Enoxaparin Sodium (Lovenox) 40 mg SUB-Q DAILY [facility] Last Admin: 01/29/19 09:50 Dose: 40 mg Documented by: Fentanyl (Duragesic) 50 mcg TD Q3D [facility] Last Admin: 01/29/19 13:59 Dose: 50 mcg Documented by: Guaifenesin (Guaifenesin Dm Syrup) 10 ml PO Q4H PRN PRN Reason: Cough Hydromorphone HCl (Dilaudid) 0.5 mg IV Q3H PRN PRN Reason: Pain , Severe (7-10) Last Admin: 01/27/19 03:47 Dose: 0.5 mg Documented by: Lansoprazole (Prevacid Solutab) 30 mg FEEDTUBE QDAY [facility] Last Admin: 01/29/19 09:49 Dose: 30 mg Documented by: Lorazepam (Ativan) 1 mg IV Q6H PRN PRN Reason: Anxiety Last Admin: 01/29/19 12:10 Dose: 1 mg Documented by: Metoprolol Tartrate (Lopressor) 12.5 mg PO BID [facility] Last Admin: 01/29/19 09:50 Dose: 12.5 mg Documented by: Ondansetron HCl (Zofran) 4 mg IV Q8H PRN PRN Reason: Nausea And Vomiting Oxycodone/Acetaminophen (Percocet 5/325) 2 tab PO Q4HR PRN PRN Reason: Pain, Moderate (4-6) Last Admin: 01/29/19 16:52 Dose: 2 tab Documented by: Pregabalin (Lyrica) 150 mg PO QDAY [facility] Last Admin: 01/29/19 09:49 Dose: 150 mg Documented by: Simethicone (Mylicon) 80 mg PO Q6H PRN PRN Reason: Gas pain Last Admin: 01/29/19 12:10 Dose: 80 mg Documented by: Simple Syrup (Simple Syrup) 15 ml FEEDTUBE PRN PRN PRN Reason: Hypoglycemia Simple Syrup (Simple Syrup) 30 ml FEEDTUBE PRN PRN PRN Reason: Hypoglycemia Sodium Bicarbonate (Sodium Bicarbonate) 325 mg FEEDTUBE PRN PRN PRN Reason: For Clogged Feeding Tube Sodium Chloride (Sodium Chloride Flush Syringe 10 Ml) 10 ml IV BID [facility] Last Admin: 01/29/19 09:51 Dose: 10 ml Documented by: Sodium Chloride (Sodium Chloride Flush Syringe 10 Ml) 10 ml IV PRN PRN PRN Reason: LINE FLUSH Last Admin: 01/28/19 23:04 Dose: 10 ml Documented by: Objective Vital Signs - 12hr 01/29/19 01/29/19 01/29/19 06:30 06:40 07:00 Temperature Pulse Rate 114 H 114 H 114 H Pulse Rate [ From Monitor] Respiratory 28 H 18 17 Rate Respiratory Rate [Upper Abdomen] Blood Pressure 100/52 96/42 O2 Sat by Pulse 95 95 96 Oximetry O2 Sat by Pulse Oximetry [ Assessment] 01/29/19 01/29/19 01/29/19 07:22 07:30 08:00 Temperature 98.4 F Pulse Rate 116 H 118 H 114 H Pulse Rate [ 117 H From Monitor] Respiratory 22 35 H 28 H Rate Respiratory Rate [Upper Abdomen] Blood Pressure 96/42 114/47 119/57 O2 Sat by Pulse 97 95 96 Oximetry O2 Sat by Pulse 98 Oximetry [ Assessment] 01/29/19 01/29/19 01/29/19 08:30 09:00 09:20 Temperature Pulse Rate 119 H 105 H Pulse Rate [ From Monitor] Respiratory 27 H 34 H 34 H Rate Respiratory Rate [Upper Abdomen] Blood Pressure 117/59 130/52 O2 Sat by Pulse 94 96 Oximetry O2 Sat by Pulse Oximetry [ Assessment] 01/29/19 01/29/19 01/29/19 09:30 09:50 10:00 Temperature Pulse Rate 110 H 118 H 109 H Pulse Rate [ From Monitor] Respiratory 35 H 47 H Rate Respiratory 35 H Rate [Upper Abdomen] Blood Pressure 118/62 118/62 120/69 O2 Sat by Pulse 96 90 Oximetry O2 Sat by Pulse Oximetry [ Assessment] 01/29/19 01/29/19 01/29/19 10:20 10:30 11:00 Temperature Pulse Rate 87 89 Pulse Rate [ From Monitor] Respiratory 25 H 21 19 Rate Respiratory Rate [Upper Abdomen] Blood Pressure 120/69 96/46 O2 Sat by Pulse 94 94 Oximetry O2 Sat by Pulse Oximetry [ Assessment] 01/29/19 01/29/19 01/29/19 11:27 11:30 11:50 Temperature Pulse Rate 118 H 95 H Pulse Rate [ 89 From Monitor] Respiratory 24 27 H 28 H Rate Respiratory Rate [Upper Abdomen] Blood Pressure 118/62 94/41 O2 Sat by Pulse 93 93 95 Oximetry O2 Sat by Pulse Oximetry [ Assessment] 01/29/19 01/29/19 01/29/19 12:00 12:30 13:00 Temperature 98.1 F Pulse Rate 99 H 102 H 102 H Pulse Rate [ From Monitor] Respiratory 34 H 27 H 25 H Rate Respiratory Rate [Upper Abdomen] Blood Pressure 105/33 91/44 98/46 O2 Sat by Pulse 95 96 98 Oximetry O2 Sat by Pulse Oximetry [ Assessment] 01/29/19 01/29/19 01/29/19 13:30 13:59 14:00 Temperature Pulse Rate 97 H 102 H Pulse Rate [ From Monitor] Respiratory 22 31 H 33 H Rate Respiratory Rate [Upper Abdomen] Blood Pressure 106/42 109/67 O2 Sat by Pulse 95 95 Oximetry O2 Sat by Pulse Oximetry [ Assessment] 01/29/19 01/29/19 01/29/19 14:30 14:59 15:00 Temperature Pulse Rate 101 H 98 H Pulse Rate [ From Monitor] Respiratory 24 24 24 Rate Respiratory Rate [Upper Abdomen] Blood Pressure 98/59 97/52 O2 Sat by Pulse 92 95 Oximetry O2 Sat by Pulse Oximetry [ Assessment] 01/29/19 01/29/19 01/29/19 16:00 16:15 16:52 Temperature 99.3 F Pulse Rate 98 H 98 H Pulse Rate [ 98 H From Monitor] Respiratory 26 H 23 40 H Rate Respiratory Rate [Upper Abdomen] Blood Pressure 97/52 O2 Sat by Pulse 96 95 Oximetry O2 Sat by Pulse 96 Oximetry [ Assessment] Constitutional: other (critically ill on vent) Eyes: non-icteric ENT: oropharynx moist Neck: supple, other (trach is midline) Effort: normal Ascultation: Bilateral: other (coarse BS bilaterally) Percussion: Bilateral: not dull Cardiovascular: regular rate and rhythm (no mrg) Gastrointestinal: normoactive bowel sounds, soft, non-distended, other (peg tube) Extremities: no edema, pink and warm Neurologic: normal mental status, non-focal exam, pupils equal and round Psychiatric: mood appropriate, affect normal CBC and BMP: 01/29/19 03:17 01/29/19 03:17 ABG, PT/INR, D-dimer: ABG POC ABG pH 7.368 (7.35-7.45) 01/26/19 03:59 POC ABG pCO2 55.6 (35-45) H 01/26/19 03:59 POC ABG pO2 69 (80-105) L 01/26/19 03:59 POC ABG HCO3 32.0 (22-26 mml/L) 01/26/19 03:59 POC ABG Total CO2 34 (23-27mmol/L) 01/26/19 03:59 POC ABG O2 Sat 92 01/26/19 03:59 Abnormal lab findings: Abnormal Labs 01/21/19 01/21/19 01/21/19 03:49 03:57 09:40 RBC Hgb Hct MCV MCH RDW Lymph % (Auto) [place] % (Auto) Lymph # Seg Neutrophils % Seg Neuts % (Manual) Lymphocytes % (Manual) Seg Neutrophils # Lymphocytes # (Manual) POC ABG pCO2 POC ABG pO2 57 L Carbon Dioxide BUN Creatinine Glucose POC Glucose 135 H Calcium Magnesium AST Alkaline Phosphatase Total Protein Albumin Urine WBC (Auto) 17.0 H 01/21/19 01/21/19 01/21/19 Unknown Unknown Unknown RBC 2.64 L Hgb 8.6 L Hct 26.7 L MCV 101 H MCH 33 H RDW 20.2 H Lymph % (Auto) 4.1 L [place] % (Auto) 8.3 H Lymph # 0.4 L Seg Neutrophils % 85.4 H Seg Neuts % (Manual) Lymphocytes % (Manual) Seg Neutrophils # 8.4 H Lymphocytes # (Manual) POC ABG pCO2 POC ABG pO2 Carbon Dioxide 31 H BUN 21 H Creatinine Glucose 104 H POC Glucose Calcium 8.2 L Magnesium 2.40 H AST 52 H Alkaline Phosphatase Total Protein 5.8 L Albumin 2.8 L Urine WBC (Auto) 01/22/19 01/23/19 01/23/19 05:58 03:58 04:05 RBC 2.53 L Hgb 8.3 L Hct 26.0 L MCV 103 H MCH 33 H RDW 20.3 H Lymph % (Auto) 6.7 L [place] % (Auto) 10.0 H Lymph # 0.6 L Seg Neutrophils % 80.7 H Seg Neuts % (Manual) Lymphocytes % (Manual) Seg Neutrophils # Lymphocytes # (Manual) POC ABG pCO2 48.8 H 50.4 H POC ABG pO2 64 L 62 L Carbon Dioxide BUN Creatinine Glucose POC Glucose Calcium Magnesium AST Alkaline Phosphatase Total Protein Albumin Urine WBC (Auto) 01/23/19 01/24/19 01/24/19 04:05 04:29 04:34 RBC Hgb Hct MCV MCH RDW Lymph % (Auto) [place] % (Auto) Lymph # Seg Neutrophils % Seg Neuts % (Manual) Lymphocytes % (Manual) Seg Neutrophils # Lymphocytes # (Manual) POC ABG pCO2 48.6 H POC ABG pO2 65 L Carbon Dioxide BUN Creatinine 0.4 L 0.4 L Glucose 127 H 114 H POC Glucose Calcium 7.6 L 7.9 L Magnesium AST Alkaline Phosphatase Total Protein Albumin Urine WBC (Auto) 01/25/19 01/26/19 01/27/19 05:21 03:59 07:54 RBC Hgb Hct MCV MCH RDW Lymph % (Auto) [place] % (Auto) Lymph # Seg Neutrophils % Seg Neuts % (Manual) Lymphocytes % (Manual) Seg Neutrophils # Lymphocytes # (Manual) POC ABG pCO2 52.7 H 55.6 H POC ABG pO2 65 L 69 L Carbon Dioxide BUN Creatinine Glucose POC Glucose 120 H Calcium Magnesium AST Alkaline Phosphatase Total Protein Albumin Urine WBC (Auto) 01/29/19 01/29/19 03:17 03:17 RBC 2.66 L Hgb 8.5 L Hct 27.1 L MCV 102 H MCH RDW 20.3 H Lymph % (Auto) [place] % (Auto) 11.2 H Lymph # Seg Neutrophils % 75.6 H Seg Neuts % (Manual) 85.0 H Lymphocytes % (Manual) 8.0 L Seg Neutrophils # Lymphocytes # (Manual) 0.6 L POC ABG pCO2 POC ABG pO2 Carbon Dioxide 33 H BUN Creatinine 0.5 L Glucose POC Glucose Calcium 7.8 L Magnesium AST 56 H Alkaline Phosphatase 140 H Total Protein 5.2 L Albumin 2.3 L Urine WBC (Auto) Chest x-ray: report reviewed, image reviewed
[2019-01-29] MEDS: BENADRYL PO PRN (21:27)
[2019-01-30] MEDS: PERCOCET 5/325 PO PRN ×4 (03:45→19:27)
[2019-01-30] MEDS: LYRICA PO SCH (09:22)
[2019-01-30] MEDS: PREVACID SOLUTAB FEEDTUBE SCH (09:22)
[2019-01-30] MEDS: SODIUM CHLORIDE FLUSH SYRINGE 10 ML IV SCH (09:24)
[2019-01-30] MEDS: LOPRESSOR PO SCH (09:24)
[2019-01-30] MEDS: LOVENOX SUB-Q SCH (09:25)
--- NOTE | 2019-01-30 13:36 | Progress Note ---
Assessment and Plan Imp: 1. Metastatic breast cancer; essentially appears she has end-stage disease 2. Malignant pleural effusions, loculated on the R, with R PleurX POA 3. Pericardial effusion s/p window 08/2018; previous Echo 11/2018 negative for tamponade 4. A/C respiratory failure s/p Trach; believe this is primarily due to #'s 1 and 2 5. ? UTI/Sepsis Rec: 1. Daily PSV trials although I do not believe she will ultimately be fully weanable to Tpiece or Trach collar, after failure to wean at [facility] 12/14/18 - 01/20/19; working on placement 2. Finished ABX 3. I doubt that placing a L sided chest tube would change her clinical status; D/c Pleurovac; drain PleurX every other day and stretch it out farther PRN depending on output 4. TFs per PEG 5. DVT and GI PPx 6. Klonopin 1mg BID due to anxiety on PSV 7. Patient with metastatic, terminal cancer so should be sure she should not be having any pain -> titrate prn 8. Monitor clinically; she has a very poor prognosis but family have had unreasonable expectations re: her condition; family was not present today 9. Complex decision-making Subjective Date of service: 01/30/19 Principal diagnosis: A/C respiratory failure Interval history: Awake, alert, on ventilator. Wanting to go home. Tolerating PSV 15/ but + an xiety and episodic tachypnea, better on Klonopin. Getting Percocet prn. Active Medications Acetaminophen (Tylenol) 650 mg PO Q4H PRN PRN Reason: Pain MILD(1-3)/Fever >100.5/[place] Last Admin: 01/22/19 15:00 Dose: 650 mg Documented by: Albuterol (Proventil) 2.5 mg IH Q3HRT PRN PRN Reason: Shortness Of Breath Lipase/Protease/Amylase (Neo Arreguin 10,500 Unit) 1 each FEEDTUBE PRN PRN PRN Reason: For Clogged Feeding Tube Clonazepam (Klonopin) 1 mg PO BID [facility] Last Admin: 01/30/19 09:22 Dose: 1 mg Documented by: Diphenhydramine HCl (Benadryl) 25 mg PO QHS PRN PRN Reason: Insomnia Last Admin: 01/29/19 21:27 Dose: 25 mg Documented by: Enoxaparin Sodium (Lovenox) 40 mg SUB-Q DAILY [facility] Last Admin: 01/30/19 09:25 Dose: 40 mg Documented by: Fentanyl (Duragesic) 50 mcg TD Q3D [facility] Last Admin: 01/29/19 13:59 Dose: 50 mcg Documented by: Guaifenesin (Guaifenesin Dm Syrup) 10 ml PO Q4H PRN PRN Reason: Cough Hydromorphone HCl (Dilaudid) 0.5 mg IV Q3H PRN PRN Reason: Pain , Severe (7-10) Last Admin: 01/27/19 03:47 Dose: 0.5 mg Documented by: Lansoprazole (Prevacid Solutab) 30 mg FEEDTUBE QDAY [facility] Last Admin: 01/30/19 09:22 Dose: 30 mg Documented by: Lorazepam (Ativan) 1 mg IV Q6H PRN PRN Reason: Anxiety Last Admin: 01/29/19 12:10 Dose: 1 mg Documented by: Metoprolol Tartrate (Lopressor) 12.5 mg PO BID [facility] Last Admin: 01/30/19 09:24 Dose: 12.5 mg Documented by: Ondansetron HCl (Zofran) 4 mg IV Q8H PRN PRN Reason: Nausea And Vomiting Oxycodone/Acetaminophen (Percocet 5/325) 2 tab PO Q4HR PRN PRN Reason: Pain, Moderate (4-6) Last Admin: 01/30/19 13:43 Dose: 2 tab Documented by: Pregabalin (Lyrica) 150 mg PO QDAY [facility] Last Admin: 01/30/19 09:22 Dose: 150 mg Documented by: Simethicone (Mylicon) 80 mg PO Q6H PRN PRN Reason: Gas pain Last Admin: 01/30/19 13:44 Dose: 80 mg Documented by: Simple Syrup (Simple Syrup) 15 ml FEEDTUBE PRN PRN PRN Reason: Hypoglycemia Simple Syrup (Simple Syrup) 30 ml FEEDTUBE PRN PRN PRN Reason: Hypoglycemia Sodium Bicarbonate (Sodium Bicarbonate) 325 mg FEEDTUBE PRN PRN PRN Reason: For Clogged Feeding Tube Sodium Chloride (Sodium Chloride Flush Syringe 10 Ml) 10 ml IV BID [facility] Last Admin: 01/30/19 09:24 Dose: 10 ml Documented by: Sodium Chloride (Sodium Chloride Flush Syringe 10 Ml) 10 ml IV PRN PRN PRN Reason: LINE FLUSH Last Admin: 01/28/19 23:04 Dose: 10 ml Documented by: Objective Vital Signs - 12hr 01/30/19 01/30/19 01/30/19 02:00 02:31 03:00 Temperature Pulse Rate 99 H 97 H 100 H Pulse Rate [ From Monitor] Respiratory 20 35 H 32 H Rate Blood Pressure 100/61 97/61 97/52 O2 Sat by Pulse 96 93 95 Oximetry O2 Sat by Pulse Oximetry [ Assessment] 01/30/19 01/30/19 01/30/19 03:30 04:00 04:30 Temperature 99.0 F Pulse Rate 96 H 100 H 83 Pulse Rate [ 89 From Monitor] Respiratory 24 18 19 Rate Blood Pressure 104/59 92/50 86/47 O2 Sat by Pulse 94 94 93 Oximetry O2 Sat by Pulse Oximetry [ Assessment] 01/30/19 01/30/19 01/30/19 04:34 05:00 05:30 Temperature Pulse Rate 86 84 86 Pulse Rate [ From Monitor] Respiratory 22 21 Rate Blood Pressure 86/47 92/53 103/55 O2 Sat by Pulse 93 95 96 Oximetry O2 Sat by Pulse Oximetry [ Assessment] 01/30/19 01/30/19 01/30/19 06:00 06:30 07:00 Temperature Pulse Rate 90 89 102 H Pulse Rate [ From Monitor] Respiratory 20 19 19 Rate Blood Pressure 104/51 110/62 105/56 O2 Sat by Pulse 94 97 95 Oximetry O2 Sat by Pulse Oximetry [ Assessment] 01/30/19 01/30/19 01/30/19 07:30 08:00 08:26 Temperature 98.6 F Pulse Rate 94 H 93 H 97 H Pulse Rate [ 107 H From Monitor] Respiratory 24 20 Rate Blood Pressure 114/50 103/57 103/57 O2 Sat by Pulse 95 97 94 Oximetry O2 Sat by Pulse Oximetry [ Assessment] 01/30/19 01/30/19 01/30/19 08:29 08:30 09:00 Temperature Pulse Rate 94 H 93 H Pulse Rate [ From Monitor] Respiratory 23 23 Rate Blood Pressure 107/53 100/52 O2 Sat by Pulse 95 96 Oximetry O2 Sat by Pulse 95 Oximetry [ Assessment] 01/30/19 01/30/19 01/30/19 09:23 09:24 09:30 Temperature Pulse Rate 106 H 101 H Pulse Rate [ From Monitor] Respiratory 26 H 22 Rate Blood Pressure 100/52 108/53 O2 Sat by Pulse 95 Oximetry O2 Sat by Pulse Oximetry [ Assessment] 01/30/19 01/30/19 01/30/19 10:00 10:23 10:30 Temperature Pulse Rate 94 H 84 Pulse Rate [ From Monitor] Respiratory 19 25 H 18 Rate Blood Pressure 85/40 92/49 O2 Sat by Pulse 95 95 Oximetry O2 Sat by Pulse Oximetry [ Assessment] 01/30/19 01/30/19 01/30/19 11:00 11:30 12:00 Temperature 98.6 F Pulse Rate 84 85 86 Pulse Rate [ 86 From Monitor] Respiratory 18 19 23 Rate Blood Pressure 97/54 99/53 107/56 O2 Sat by Pulse 93 94 97 Oximetry O2 Sat by Pulse Oximetry [ Assessment] 01/30/19 01/30/19 12:30 13:33 Temperature Pulse Rate 89 98 H Pulse Rate [ From Monitor] Respiratory 25 H Rate Blood Pressure 104/56 98/52 O2 Sat by Pulse 92 94 Oximetry O2 Sat by Pulse Oximetry [ Assessment] Constitutional: other (critically ill on vent) Eyes: non-icteric ENT: oropharynx moist Neck: supple, other (trach is midline) Effort: normal Ascultation: Bilateral: other (coarse BS bilaterally) Percussion: Bilateral: not dull Cardiovascular: regular rate and rhythm (no mrg) Gastrointestinal: normoactive bowel sounds, soft, non-distended, other (peg tube) Extremities: no edema, pink and warm Neurologic: normal mental status, non-focal exam, pupils equal and round Psychiatric: mood appropriate, affect normal CBC and BMP: 01/29/19 03:17 01/29/19 03:17 ABG, PT/INR, D-dimer: ABG POC ABG pH 7.368 (7.35-7.45) 01/26/19 03:59 POC ABG pCO2 55.6 (35-45) H 01/26/19 03:59 POC ABG pO2 69 (80-105) L 01/26/19 03:59 POC ABG HCO3 32.0 (22-26 mml/L) 01/26/19 03:59 POC ABG Total CO2 34 (23-27mmol/L) 01/26/19 03:59 POC ABG O2 Sat 92 01/26/19 03:59 Abnormal lab findings: Abnormal Labs 01/21/19 01/21/19 01/21/19 03:49 03:57 09:40 RBC Hgb Hct MCV MCH RDW Lymph % (Auto) [place] % (Auto) Lymph # Seg Neutrophils % Seg Neuts % (Manual) Lymphocytes % (Manual) Seg Neutrophils # Lymphocytes # (Manual) POC ABG pCO2 POC ABG pO2 57 L Carbon Dioxide BUN Creatinine Glucose POC Glucose 135 H Calcium Magnesium AST Alkaline Phosphatase Total Protein Albumin Urine WBC (Auto) 17.0 H 01/21/19 01/21/19 01/21/19 Unknown Unknown Unknown RBC 2.64 L Hgb 8.6 L Hct 26.7 L MCV 101 H MCH 33 H RDW 20.2 H Lymph % (Auto) 4.1 L [place] % (Auto) 8.3 H Lymph # 0.4 L Seg Neutrophils % 85.4 H Seg Neuts % (Manual) Lymphocytes % (Manual) Seg Neutrophils # 8.4 H Lymphocytes # (Manual) POC ABG pCO2 POC ABG pO2 Carbon Dioxide 31 H BUN 21 H Creatinine Glucose 104 H POC Glucose Calcium 8.2 L Magnesium 2.40 H AST 52 H Alkaline Phosphatase Total Protein 5.8 L Albumin 2.8 L Urine WBC (Auto) 01/22/19 01/23/19 01/23/19 05:58 03:58 04:05 RBC 2.53 L Hgb 8.3 L Hct 26.0 L MCV 103 H MCH 33 H RDW 20.3 H Lymph % (Auto) 6.7 L [place] % (Auto) 10.0 H Lymph # 0.6 L Seg Neutrophils % 80.7 H Seg Neuts % (Manual) Lymphocytes % (Manual) Seg Neutrophils # Lymphocytes # (Manual) POC ABG pCO2 48.8 H 50.4 H POC ABG pO2 64 L 62 L Carbon Dioxide BUN Creatinine Glucose POC Glucose Calcium Magnesium AST Alkaline Phosphatase Total Protein Albumin Urine WBC (Auto) 01/23/19 01/24/19 01/24/19 04:05 04:29 04:34 RBC Hgb Hct MCV MCH RDW Lymph % (Auto) [place] % (Auto) Lymph # Seg Neutrophils % Seg Neuts % (Manual) Lymphocytes % (Manual) Seg Neutrophils # Lymphocytes # (Manual) POC ABG pCO2 48.6 H POC ABG pO2 65 L Carbon Dioxide BUN Creatinine 0.4 L 0.4 L Glucose 127 H 114 H POC Glucose Calcium 7.6 L 7.9 L Magnesium AST Alkaline Phosphatase Total Protein Albumin Urine WBC (Auto) 01/25/19 01/26/19 01/27/19 05:21 03:59 07:54 RBC Hgb Hct MCV MCH RDW Lymph % (Auto) [place] % (Auto) Lymph # Seg Neutrophils % Seg Neuts % (Manual) Lymphocytes % (Manual) Seg Neutrophils # Lymphocytes # (Manual) POC ABG pCO2 52.7 H 55.6 H POC ABG pO2 65 L 69 L Carbon Dioxide BUN Creatinine Glucose POC Glucose 120 H Calcium Magnesium AST Alkaline Phosphatase Total Protein Albumin Urine WBC (Auto) 01/29/19 01/29/19 03:17 03:17 RBC 2.66 L Hgb 8.5 L Hct 27.1 L MCV 102 H MCH RDW 20.3 H Lymph % (Auto) [place] % (Auto) 11.2 H Lymph # Seg Neutrophils % 75.6 H Seg Neuts % (Manual) 85.0 H Lymphocytes % (Manual) 8.0 L Seg Neutrophils # Lymphocytes # (Manual) 0.6 L POC ABG pCO2 POC ABG pO2 Carbon Dioxide 33 H BUN Creatinine 0.5 L Glucose POC Glucose Calcium 7.8 L Magnesium AST 56 H Alkaline Phosphatase 140 H Total Protein 5.2 L Albumin 2.3 L Urine WBC (Auto) Chest x-ray: report reviewed, image reviewed
--- NOTE | 2019-01-30 13:41 | Progress Note ---
Assessment and Plan Assessment and plan: Septic shock -Probably secondary to UTI, now resolved -Off IV pressor and antibiotic -Urine and blood cultures negative so far. Acute on chronic respiratory failure with hypoxia, resolved -Status post tracheostomy with mechanical ventilator dependence -Pulmonology following Acute toxic encephalopathy -Likely medication induced -Resolved -Head CT scan negative for acute findings. Stage IV breast cancer with metastases to the bone -Hospice recommended -Continue pain management. Bilateral pleural effusion -Likely malignant -s/p bilateral pleural catheter placement for drainage -LT catheter removed, RT remains in place and draining Anemia of chronic disease -H/H stable History of hypertension -Blood pressure trending up, home Lopressor resumed, will monitor Severe protein calorie malnutrition -Status post PEG tube placement on tube feeding -Nutrition following DVT prophylaxis with Lovenox Disposition: Patient's overall prognosis is very poor and hospice has been recommended. Pt is at her baseline. services program manager working on discharge planning. Time spent: 35 minutes Hospitalist Physical - Constitutional Vitals: Temp Pulse Resp BP Pulse Ox 98.6 F 98 H 25 H 98/52 94 01/30/19 12:00 01/30/19 13:33 01/30/19 12:30 01/30/19 13:33 01/30/19 13:33 General appearance: Present: no acute distress Results - Labs CBC & Chem 7: 01/29/19 03:17 01/29/19 03:17 Labs: Laboratory Last Values WBC 7.4 K/mm3 (4.5-11.0) 01/29/19 03:17 RBC 2.66 M/mm3 (3.65-5.03) L 01/29/19 03:17 Hgb 8.5 gm/dl (10.1-14.3) L 01/29/19 03:17 Hct 27.1 % (30.3-42.9) L 01/29/19 03:17 MCV 102 fl (79-97) H 01/29/19 03:17 MCH 32 pg (28-32) 01/29/19 03:17 MCHC 32 % (30-34) 01/29/19 03:17 RDW 20.3 % (13.2-15.2) H 01/29/19 03:17 Plt Count 223 K/mm3 (140-440) 01/29/19 03:17 Lymph % (Auto) 6.7 % (13.4-35.0) L 01/23/19 04:05 [place] % (Auto) 11.2 % (0.0-7.3) H 01/29/19 03:17 Eos % (Auto) 1.4 % (0.0-4.3) 01/29/19 03:17 Baso % (Auto) 0.3 % (0.0-1.8) 01/23/19 04:05 Lymph # 0.6 K/mm3 (1.2-5.4) L 01/23/19 04:05 [place] # 0.8 K/mm3 (0.0-0.8) 01/29/19 03:17 Eos # 0.1 K/mm3 (0.0-0.4) 01/29/19 03:17 Baso # 0.0 K/mm3 (0.0-0.1) 01/29/19 03:17 Add Manual Diff Complete 01/29/19 03:17 Total Counted 100 01/29/19 03:17 Seg Neutrophils % 75.6 % (40.0-70.0) H 01/29/19 03:17 Seg Neuts % (Manual) 85.0 % (40.0-70.0) H 01/29/19 03:17 1.0 % 01/29/19 03:17 8.0 % (13.4-35.0) L 01/29/19 03:17 Reactive Lymphs % (Man) 0 % 01/29/19 03:17 5.0 % (0.0-7.3) 01/29/19 03:17 0 % (0.0-4.3) 01/29/19 03:17 1.0 % (0.0-1.8) 01/29/19 03:17 0 % 01/29/19 03:17 0 % 01/29/19 03:17 0 % 01/29/19 03:17 0 % 01/29/19 03:17 Nucleated RBC % Not Reportable 01/29/19 03:17 Seg Neutrophils # 5.6 K/mm3 (1.8-7.7) 01/29/19 03:17 Seg Neutrophils # Man 6.3 K/mm3 (1.8-7.7) 01/29/19 03:17 Band Neutrophils # 0.1 K/mm3 01/29/19 03:17 0.6 K/mm3 (1.2-5.4) L 01/29/19 03:17 Abs React Lymphs (Man) 0.0 K/mm3 01/29/19 03:17 0.4 K/mm3 (0.0-0.8) 01/29/19 03:17 0.0 K/mm3 (0.0-0.4) 01/29/19 03:17 0.1 K/mm3 (0.0-0.1) 01/29/19 03:17 0.0 K/mm3 01/29/19 03:17 0.0 K/mm3 01/29/19 03:17 0.0 K/mm3 01/29/19 03:17 Blast Cells # 0.0 K/mm3 01/29/19 03:17 WBC Morphology Not Reportable 01/29/19 03:17 Hypersegmented Neuts Not Reportable 01/29/19 03:17 Hyposegmented Neuts Not Reportable 01/29/19 03:17 Hypogranular Neuts Not Reportable 01/29/19 03:17 Not Reportable 01/29/19 03:17 Not Reportable 01/29/19 03:17 Not Reportable 01/29/19 03:17 Not Reportable 01/29/19 03:17 Not Reportable 01/29/19 03:17 Not Reportable 01/29/19 03:17 Consistent w auto 01/29/19 03:17 Not Reportable 01/29/19 03:17 Plt Clumps, EDTA Not Reportable 01/29/19 03:17 Not Reportable 01/29/19 03:17 Not Reportable 01/29/19 03:17 Not Reportable 01/29/19 03:17 Plt Morphology Comment Not Reportable 01/29/19 03:17 RBC Morphology Not Reportable 01/29/19 03:17 Dimorphic RBCs Not Reportable 01/29/19 03:17 Not Reportable 01/29/19 03:17 Not Reportable 01/29/19 03:17 Few 01/29/19 03:17 1+ 01/29/19 03:17 Not Reportable 01/29/19 03:17 Not Reportable 01/29/19 03:17 Rare 01/29/19 03:17 Not Reportable 01/29/19 03:17 Not Reportable 01/29/19 03:17 Not Reportable 01/29/19 03:17 Not Reportable 01/29/19 03:17 Not Reportable 01/29/19 03:17 Not Reportable 01/29/19 03:17 Not Reportable 01/29/19 03:17 Not Reportable 01/29/19 03:17 Not Reportable 01/29/19 03:17 Not Reportable 01/29/19 03:17 Not Reportable 01/29/19 03:17 Few 01/29/19 03:17 Acanthocytes (Spur) Not Reportable 01/29/19 03:17 Rouleaux Not Reportable 01/29/19 03:17 Not Reportable 01/29/19 03:17 Not Reportable 01/29/19 03:17 Not Reportable 01/29/19 03:17 Not Reportable 01/29/19 03:17 Hem Pathologist Commnt No 01/29/19 03:17 POC ABG pH 7.368 (7.35-7.45) 01/26/19 03:59 POC ABG pCO2 55.6 (35-45) H 01/26/19 03:59 POC ABG pO2 69 (80-105) L 01/26/19 03:59 POC ABG HCO3 32.0 (22-26 mml/L) 01/26/19 03:59 POC ABG Total CO2 34 (23-27mmol/L) 01/26/19 03:59 POC ABG O2 Sat 92 01/26/19 03:59 POC ABG Base Excess 7 ((-2) - (+3)mmol/L) 01/26/19 03:59 VBG pH 7.344 (7.320-7.420) 01/21/19 06:55 40 % 01/26/19 03:59 Sodium 140 mmol/L (137-145) 01/29/19 03:17 Potassium 4.4 mmol/L (3.6-5.0) 01/29/19 03:17 Chloride 100.2 mmol/L (98-107) 01/29/19 03:17 Carbon Dioxide 33 mmol/L (22-30) H 01/29/19 03:17 11 mmol/L 01/29/19 03:17 BUN 16 mg/dL (7-17) 01/29/19 03:17 0.5 mg/dL (0.7-1.2) L 01/29/19 03:17 Estimated GFR > 60 ml/min 01/29/19 03:17 32 % 01/29/19 03:17 Glucose 92 mg/dL (65-100) 01/29/19 03:17 POC Glucose 120 (70-105) H 01/27/19 07:54 Lactic Acid 1.90 mmol/L (0.7-2.0) 01/21/19 Unknown Calcium 7.8 mg/dL (8.4-10.2) L 01/29/19 03:17 Phosphorus 3.20 mg/dL (2.5-4.5) 01/29/19 03:17 Magnesium 2.30 mg/dL (1.7-2.3) 01/29/19 03:17 < 0.20 mg/dL (0.1-1.2) 01/29/19 03:17 AST 56 units/L (5-40) H 01/29/19 03:17 ALT 12 units/L (7-56) 01/29/19 03:17 140 units/L (35-129) H 01/29/19 03:17 0.027 ng/mL (0.00-0.029) 01/21/19 Unknown 5.2 g/dL (6.3-8.2) L 01/29/19 03:17 2.3 g/dL (3.9-5) L 01/29/19 03:17 0.8 % 01/29/19 03:17 Yellow (Yellow) 01/21/19 03:49 Slightly-cloudy (Clear) 01/21/19 03:49 5.0 (5.0-7.0) 01/21/19 03:49 Ur Specific [place] 1.016 (1.003-1.030) 01/21/19 03:49 30 mg/dl mg/dL (Negative) 01/21/19 03:49 Neg mg/dL (Negative) 01/21/19 03:49 Tr mg/dL (Negative) 01/21/19 03:49 Neg (Negative) 01/21/19 03:49 Neg (Negative) 01/21/19 03:49 Neg (Negative) 01/21/19 03:49 < 2.0 mg/dL (<2.0) 01/21/19 03:49 Ur Leukocyte Esterase Sm (Negative) 01/21/19 03:49 17.0 /HPF (0.0-6.0) H 01/21/19 03:49 4.0 /HPF (0.0-6.0) 01/21/19 03:49 U Epithel Cells (Auto) 1.0 /HPF (0-13.0) 01/21/19 03:49 Few /HPF 01/21/19 03:49 Hyaline Casts 3 /LPF 01/21/19 03:49 Granular Casts 1 /LPF 01/21/19 03:49 Few /HPF 01/21/19 03:49 3+ /HPF 01/21/19 03:49 Active Medications - Current Medications Current Medications: Generic Name Dose Route Start Last Admin Trade Name Freq PRN Reason Stop Dose Admin Acetaminophen 650 mg 01/21/19 05:25 01/22/19 15:00 Tylenol PO 650 mg Q4H PRN Administration Pain MILD(1-3)/Fever >100.5/SPRING Albuterol 2.5 mg 01/21/19 05:25 Proventil IH Q3HRT PRN Shortness Of Breath Lipase/Protease/Amylase 1 each 01/21/19 15:[address] 10,500 Unit FEEDTUBE PRN PRN For Clogged Feeding Tube Clonazepam 1 mg 01/29/19 22:00 01/30/19 09:22 Klonopin PO 1 mg BID LUPIS Administration Diphenhydramine HCl 25 mg 01/24/19 08:15 01/29/19 21:27 Benadryl PO 25 mg QHS PRN Administration Insomnia Enoxaparin Sodium 40 mg 01/22/19 13:00 01/30/19 09:25 Lovenox SUB-Q 40 mg DAILY LUPIS Administration Fentanyl 50 mcg 01/26/19 14:00 01/29/19 13:59 Duragesic TD 50 mcg Q3D LUPIS Administration Guaifenesin 10 ml 01/21/19 06:05 Guaifenesin Dm Syrup PO Q4H PRN Cough Hydromorphone HCl 0.5 mg 01/21/19 05:25 01/27/19 03:47 Dilaudid IV 0.5 mg Q3H PRN Administration Pain , Severe (7-10) Lansoprazole 30 mg 01/22/19 13:00 01/30/19 09:22 Prevacid Solutab FEEDTUBE 30 mg QDAY LUPIS Administration Lorazepam 1 mg 01/24/19 14:47 01/29/19 12:10 Ativan IV 1 mg Q6H PRN Administration Anxiety Metoprolol Tartrate 12.5 mg 01/24/19 10:00 01/30/19 09:24 Lopressor PO 12.5 mg BID LUPIS Administration Ondansetron HCl 4 mg 01/21/19 05:25 Zofran IV Q8H PRN Nausea And Vomiting Oxycodone/Acetaminophen 2 tab 01/29/19 15:00 01/30/19 09:23 Percocet 5/325 PO 2 tab Q4HR PRN Administration Pain, Moderate (4-6) Pregabalin 150 mg 01/24/19 10:00 01/30/19 09:22 Lyrica PO 150 mg QDAY LUPIS Administration Simethicone 80 mg 01/22/19 12:00 01/29/19 12:10 Mylicon PO 80 mg Q6H PRN Administration Gas pain Simple Syrup 15 ml 01/21/19 15:02 Simple Syrup FEEDTUBE PRN PRN Hypoglycemia Simple Syrup 30 ml 01/21/19 15:02 Simple Syrup FEEDTUBE PRN PRN Hypoglycemia Sodium Bicarbonate 325 mg 01/21/19 15:02 Sodium Bicarbonate FEEDTUBE PRN PRN For Clogged Feeding Tube Sodium Chloride 10 ml 01/21/19 10:00 01/30/19 09:24 Sodium Chloride Flush Syringe 10 Ml IV 10 ml BID LUPIS Administration Sodium Chloride 10 ml 01/21/19 05:25 01/28/19 23:04 Sodium Chloride Flush Syringe 10 Ml IV 10 ml PRN PRN Administration LINE FLUSH Nutrition/Malnutrition Assess - Dietary Evaluation Nutrition/Malnutrition Findings: Nutrition Notes Start: 01/21/19 13:38 Freq: Status: Active Protocol: Document 01/28/19 11:28 LP (Rec: 01/28/19 11:32 LP [id number]) Nutrition Notes Initial or Follow up Reassessment Current Diagnosis Sepsis,Respiratory Failure Other Pertinent Diagnosis AMS, Metastatic breast CA, UTI Current Diet Osmolite 1.5 at 45ml/hr Labs/Tests Reviewed Pertinent Medications Reviewed Height 5 ft 5 in Weight 72.575 kg Dana Body Weight (kg) 56.81 BMI 26.6 Subjective/Other Information Pt family does not want her on hospice. Pt tolerating TF at goal rate. Percent of energy/protein needs met: 100%/78% Burn Absent Trauma Absent #1 Nutrition Diagnosis Inadequate oral intake Diagnosis Progress(for reassessment Continues documentation) Is patient on ventilator? Yes Is Patient Ambulatory and/or Out of Bed No REE-([place]-St. Jeor-confined to bed) [phone] Calculation Used for Recommendations [place] Jeor Additional Notes Pro needs 1.2-2g/k-145g/ day Fluid needs 1ml/kcal Nutrition Intervention Change Diet Order: TF Nutrition Support: Osmolite 1.5 at 45ml/hr with 150ml water flush q4h. Kcal 1,620 Protein (gm) 68 Fluid (mL) 823 Goal #1 TF tolerance Goal #2 TF at goal rate to meet at least 75% energy and pro needs Anticipated Discharge Needs: Continue TF Follow-Up By: 02/03/19 Additional Comments Follow for TF tolerance
[2019-01-30] MEDS: MYLICON PO PRN (13:44)
--- NOTE | 2019-01-30 13:46 | Discharge Summary ---
Providers - Providers Date of Admission: 01/21/19 05:25 Attending physician: SAMANTHA DIXON MD 01/21/19 05:25 Consult to Physician [CONS] Routine Comment: Consulting Provider: DENZEL HYATT Physician Instructions: Reason For Exam: uti, hypotension on levo gtt hx breast ca withmets 01/21/19 05:29 Consult to Dietitian/Nutrition [CONS] Routine Physician Instructions: Reason For Exam: Reason for Consult: Write/Manage Tube Feeding 01/21/19 06:29 Consult to Case Management [CONS] Routine Services Needed at Discharge: Other Notified:: yes Phone number called:: spoke Was contact made?: Yes If yes, spoke with:: Pari Time called:: 10:30 Additional Physician Instructions: new hospice placement 01/21/19 13:37 Physical Therapy Evaluation and Treat [CONS] Routine Comment: Reason For Exam: Debility 01/21/19 14:43 Consult to Dietitian/Nutrition [CONS] Routine Physician Instructions: Reason For Exam: Reason for Consult: Write/Manage Tube Feeding Primary care physician: KOBY LUIS Hospitalization Condition: Stable Hospital course: Septic shock -Probably secondary to UTI, now resolved -Off IV pressor and antibiotic -Urine and blood cultures negative so far. Acute on chronic respiratory failure with hypoxia, resolved -Status post tracheostomy with mechanical ventilator dependence -Pulmonology following Acute toxic encephalopathy -Likely medication induced -Resolved -Head CT scan negative for acute findings. Stage IV breast cancer with metastases to the bone -Hospice recommended -Continue pain management. Bilateral pleural effusion -Likely malignant -s/p bilateral pleural catheter placement for drainage -LT catheter removed, RT remains in place and draining Anemia of chronic disease -H/H stable History of hypertension -Blood pressure trending up, home Lopressor resumed, will monitor Severe protein calorie malnutrition -Status post PEG tube placement on tube feeding -Nutrition following DVT prophylaxis with Lovenox Disposition: Patient's overall prognosis is very poor and hospice has been recommended. Pt is at her baseline. foreign exchange services manager working on discharge planning. Disposition: [id number] MEDICARE CERT LT Time spent for discharge: 33 mins Core Measure Documentation - Palliative Care Palliative Care/ Comfort Measures: Not Applicable - Core Measures Any of the following diagnoses?: none Exam - Constitutional Vitals: Temp Pulse Resp BP Pulse Ox 98.6 F 98 H 25 H 98/52 94 01/30/19 12:00 08/08/19 13:33 01/30/19 12:30 01/30/19 13:33 01/30/19 13:33 General appearance: Present: no acute distress, well-nourished - EENT Eyes: Present: PERRL ENT: hearing intact, clear oral mucosa - Neck Neck: Present: supple, normal ROM - Respiratory Respiratory effort: normal Respiratory: bilateral: CTA - Cardiovascular Heart Sounds: Present: S1 & S2. Absent: rub, click - Extremities Extremities: pulses symmetrical, No edema Peripheral Pulses: within normal limits - Abdominal General gastrointestinal: Present: soft, non-tender, non-distended, normal bowel sounds Female genitourinary: Present: normal - Integumentary Integumentary: Present: clear, warm, dry - Musculoskeletal Musculoskeletal: gait normal, strength equal bilaterally - Psychiatric Psychiatric: appropriate mood/affect, intact judgment & insight - Neurologic Neurologic: CNII-XII intact, moves all extremities Plan Follow up with: KOBY LUIS MD [Primary Care Provider] - 3-5 Days Prescriptions: fentaNYL [Duragesic 50mcg] 50 mcg TD Q3D #1 patch clonazePAM [KlonoPIN] 1 mg PO BID #7 tablet oxyCODONE /ACETAMINOPHEN [Percocet 5/325 mg] 2 tab PO Q4HR PRN #7 tablet PRN Reason: Pain, Moderate (4-6)
[2019-01-31] MEDS: PERCOCET 5/325 PO PRN ×4 (00:23→12:43)
[2019-01-31] MEDS: DILAUDID IV PRN (01:01)
[2019-01-31] MEDS: LOPRESSOR PO SCH ×2 (03:57→09:42)
[2019-01-31] MEDS: LYRICA PO SCH (09:41)
[2019-01-31] MEDS: PREVACID SOLUTAB FEEDTUBE SCH (09:42)
[2019-01-31] MEDS: LOVENOX SUB-Q SCH (09:44)
--- NOTE | 2019-01-31 12:28 | Progress Note ---
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 1. Continue daily PSV trials. 2. PT/OT 3. No objection to discharge to facility. CCT 31 minutes. Subjective Date of service: 01/31/19 Principal diagnosis: A/C respiratory failure Interval history: no acute events. Per CM, being discharged today. Objective Vital Signs - 12hr 01/31/19 01/31/19 01/31/19 00:30 01:00 01:30 Temperature Pulse Rate 100 H 101 H 93 H Pulse Rate [ From Monitor] Respiratory 21 31 H 18 Rate Blood Pressure 98/58 89/51 82/47 O2 Sat by Pulse 93 93 93 Oximetry O2 Sat by Pulse Oximetry [ Assessment] 01/31/19 01/31/19 01/31/19 02:00 02:30 03:00 Temperature Pulse Rate 93 H 93 H 103 H Pulse Rate [ From Monitor] Respiratory 18 19 18 Rate Blood Pressure 90/54 84/49 94/58 O2 Sat by Pulse 94 93 93 Oximetry O2 Sat by Pulse Oximetry [ Assessment] 01/31/19 01/31/19 01/31/19 03:30 03:57 04:00 Temperature 98.2 F Pulse Rate 92 H 98 H 99 H Pulse Rate [ 97 H From Monitor] Respiratory 18 25 H Rate Blood Pressure 94/51 94/51 91/57 O2 Sat by Pulse 94 95 Oximetry O2 Sat by Pulse Oximetry [ Assessment] 01/31/19 01/31/19 01/31/19 04:30 05:00 05:30 Temperature Pulse Rate 106 H 92 H 87 Pulse Rate [ From Monitor] Respiratory 22 27 H 20 Rate Blood Pressure 102/57 109/53 97/60 O2 Sat by Pulse 95 92 94 Oximetry O2 Sat by Pulse Oximetry [ Assessment] 01/31/19 01/31/19 01/31/19 06:00 06:30 07:00 Temperature Pulse Rate 89 94 H 96 H Pulse Rate [ From Monitor] Respiratory 17 21 31 H Rate Blood Pressure 94/55 96/63 90/64 O2 Sat by Pulse 94 96 94 Oximetry O2 Sat by Pulse Oximetry [ Assessment] 01/31/19 01/31/19 01/31/19 07:30 08:00 08:30 Temperature 97.4 F L Pulse Rate 93 H 91 H 111 H Pulse Rate [ 102 H From Monitor] Respiratory 16 20 25 H Rate Blood Pressure 96/61 95/56 105/63 O2 Sat by Pulse 95 93 93 Oximetry O2 Sat by Pulse Oximetry [ Assessment] 01/31/19 01/31/19 01/31/19 08:32 08:41 09:00 Temperature Pulse Rate 103 H 89 Pulse Rate [ From Monitor] Respiratory 18 Rate Blood Pressure 105/63 97/59 O2 Sat by Pulse 95 94 Oximetry O2 Sat by Pulse 95 Oximetry [ Assessment] 01/31/19 01/31/19 01/31/19 09:30 09:42 10:00 Temperature Pulse Rate 90 89 88 Pulse Rate [ From Monitor] Respiratory 20 19 Rate Blood Pressure 100/53 100/53 94/55 O2 Sat by Pulse 95 95 Oximetry O2 Sat by Pulse Oximetry [ Assessment] 01/31/19 01/31/19 01/31/19 10:30 11:00 11:21 Temperature Pulse Rate 93 H 94 H 90 Pulse Rate [ From Monitor] Respiratory 20 19 Rate Blood Pressure 89/47 87/54 87/54 O2 Sat by Pulse 95 95 96 Oximetry O2 Sat by Pulse Oximetry [ Assessment] 01/31/19 01/31/19 11:26 11:30 Temperature Pulse Rate 93 H Pulse Rate [ From Monitor] Respiratory 17 Rate Blood Pressure 97/58 O2 Sat by Pulse 96 Oximetry O2 Sat by Pulse 96 Oximetry [ Assessment] Constitutional: other (critically ill on vent) Eyes: non-icteric ENT: oropharynx moist Neck: supple, other (trach is midline) Effort: normal Ascultation: Bilateral: diminished breath sounds, rales, other (coarse BS bilaterally) Percussion: Bilateral: not dull Cardiovascular: regular rate and rhythm (no mrg) Gastrointestinal: normoactive bowel sounds, soft, non-distended, other (peg tube) Extremities: no edema, pink and warm Neurologic: normal mental status, non-focal exam, pupils equal and round Psychiatric: mood appropriate, affect normal CBC and BMP: 01/29/19 03:17 01/29/19 03:17 ABG, PT/INR, D-dimer: ABG POC ABG pH 7.368 (7.35-7.45) 01/26/19 03:59 POC ABG pCO2 55.6 (35-45) H 01/26/19 03:59 POC ABG pO2 69 (80-105) L 01/26/19 03:59 POC ABG HCO3 32.0 (22-26 mml/L) 01/26/19 03:59 POC ABG Total CO2 34 (23-27mmol/L) 01/26/19 03:59 POC ABG O2 Sat 92 01/26/19 03:59 Abnormal lab findings: Abnormal Labs 01/21/19 01/21/19 01/21/19 03:49 03:57 09:40 RBC Hgb Hct MCV MCH RDW Lymph % (Auto) [place] % (Auto) Lymph # Seg Neutrophils % Seg Neuts % (Manual) Lymphocytes % (Manual) Seg Neutrophils # Lymphocytes # (Manual) POC ABG pCO2 POC ABG pO2 57 L Carbon Dioxide BUN Creatinine Glucose POC Glucose 135 H Calcium Magnesium AST Alkaline Phosphatase Total Protein Albumin Urine WBC (Auto) 17.0 H 01/21/19 01/21/19 01/21/19 Unknown Unknown Unknown RBC 2.64 L Hgb 8.6 L Hct 26.7 L MCV 101 H MCH 33 H RDW 20.2 H Lymph % (Auto) 4.1 L [place] % (Auto) 8.3 H Lymph # 0.4 L Seg Neutrophils % 85.4 H Seg Neuts % (Manual) Lymphocytes % (Manual) Seg Neutrophils # 8.4 H Lymphocytes # (Manual) POC ABG pCO2 POC ABG pO2 Carbon Dioxide 31 H BUN 21 H Creatinine Glucose 104 H POC Glucose Calcium 8.2 L Magnesium 2.40 H AST 52 H Alkaline Phosphatase Total Protein 5.8 L Albumin 2.8 L Urine WBC (Auto) 01/22/19 01/23/19 01/23/19 05:58 03:58 04:05 RBC 2.53 L Hgb 8.3 L Hct 26.0 L MCV 103 H MCH 33 H RDW 20.3 H Lymph % (Auto) 6.7 L [place] % (Auto) 10.0 H Lymph # 0.6 L Seg Neutrophils % 80.7 H Seg Neuts % (Manual) Lymphocytes % (Manual) Seg Neutrophils # Lymphocytes # (Manual) POC ABG pCO2 48.8 H 50.4 H POC ABG pO2 64 L 62 L Carbon Dioxide BUN Creatinine Glucose POC Glucose Calcium Magnesium AST Alkaline Phosphatase Total Protein Albumin Urine WBC (Auto) 01/23/19 01/24/19 01/24/19 04:05 04:29 04:34 RBC Hgb Hct MCV MCH RDW Lymph % (Auto) [place] % (Auto) Lymph # Seg Neutrophils % Seg Neuts % (Manual) Lymphocytes % (Manual) Seg Neutrophils # Lymphocytes # (Manual) POC ABG pCO2 48.6 H POC ABG pO2 65 L Carbon Dioxide BUN Creatinine 0.4 L 0.4 L Glucose 127 H 114 H POC Glucose Calcium 7.6 L 7.9 L Magnesium AST Alkaline Phosphatase Total Protein Albumin Urine WBC (Auto) 01/25/19 01/26/19 01/27/19 05:21 03:59 07:54 RBC Hgb Hct MCV MCH RDW Lymph % (Auto) [place] % (Auto) Lymph # Seg Neutrophils % Seg Neuts % (Manual) Lymphocytes % (Manual) Seg Neutrophils # Lymphocytes # (Manual) POC ABG pCO2 52.7 H 55.6 H POC ABG pO2 65 L 69 L Carbon Dioxide BUN Creatinine Glucose POC Glucose 120 H Calcium Magnesium AST Alkaline Phosphatase Total Protein Albumin Urine WBC (Auto) 01/29/19 01/29/19 03:17 03:17 RBC 2.66 L Hgb 8.5 L Hct 27.1 L MCV 102 H MCH RDW 20.3 H Lymph % (Auto) [place] % (Auto) 11.2 H Lymph # Seg Neutrophils % 75.6 H Seg Neuts % (Manual) 85.0 H Lymphocytes % (Manual) 8.0 L Seg Neutrophils # Lymphocytes # (Manual) 0.6 L POC ABG pCO2 POC ABG pO2 Carbon Dioxide 33 H BUN Creatinine 0.5 L Glucose POC Glucose Calcium 7.8 L Magnesium AST 56 H Alkaline Phosphatase 140 H Total Protein 5.2 L Albumin 2.3 L Urine WBC (Auto)
--- NOTE | 2019-01-31 12:36 | Progress Note ---
Assessment and Plan Assessment and plan: Septic shock -Probably secondary to UTI, now resolved -Off IV pressor and antibiotic -Urine and blood cultures negative so far. Acute on chronic respiratory failure with hypoxia, resolved -Status post tracheostomy with mechanical ventilator dependence -Pulmonology following Acute toxic encephalopathy -Likely medication induced -Resolved -Head CT scan negative for acute findings. Stage IV breast cancer with metastases to the bone -Hospice recommended -Continue pain management. Bilateral pleural effusion -Likely malignant -s/p bilateral pleural catheter placement for drainage -LT catheter removed, RT remains in place and draining Anemia of chronic disease -H/H stable History of hypertension -Blood pressure trending up, home Lopressor resumed, will monitor Severe protein calorie malnutrition -Status post PEG tube placement on tube feeding -Nutrition following DVT prophylaxis with Lovenox Disposition: Patient's overall prognosis is very poor and hospice has been recommended. Pt is at her baseline. incident response manager working on discharge planning. Time spent: 35 minutes History Interval history: Review of systems Constitutional: No fevers, no malaise, no joint pains CVS: No chest pain, no orthopnea, no dyspnea on exertion, no pedal edema GI: No abdominal pain, no diarrhea, no vomiting, no constipation Respiratory: no wheezing, no coughing Hospitalist Physical - Physical exam Narrative exam: General.: Appears well, no distress, nontoxic HEENT: Moist mucous membranes, extraocular muscles intact, no lymphadenopathy Neck: supple Cardiac: S1-S2 heard Lungs: clear to auscultation bilaterally Abdomen: soft , nontender, nondistended, bowel sounds positive Extremities: no edema clubbing or cyanosis Skin: no rash or lesions Neurologic: no gross focal deficits Psych: calm, and cooperative - Constitutional Vitals: Temp Pulse Resp BP Pulse Ox 97.4 F L 93 H 17 97/58 96 01/31/19 08:00 01/31/19 11:30 01/31/19 11:30 01/31/19 11:30 01/31/19 11:30 General appearance: Present: no acute distress, well-nourished Results - Labs CBC & Chem 7: 01/29/19 03:17 01/29/19 03:17 Labs: Laboratory Last Values WBC 7.4 K/mm3 (4.5-11.0) 01/29/19 03:17 RBC 2.66 M/mm3 (3.65-5.03) L 01/29/19 03:17 Hgb 8.5 gm/dl (10.1-14.3) L 01/29/19 03:17 Hct 27.1 % (30.3-42.9) L 01/29/19 03:17 MCV 102 fl (79-97) H 01/29/19 03:17 MCH 32 pg (28-32) 01/29/19 03:17 MCHC 32 % (30-34) 01/29/19 03:17 RDW 20.3 % (13.2-15.2) H 01/29/19 03:17 Plt Count 223 K/mm3 (140-440) 01/29/19 03:17 Lymph % (Auto) 6.7 % (13.4-35.0) L 01/23/19 04:05 Ellis % (Auto) 11.2 % (0.0-7.3) H 01/29/19 03:17 Eos % (Auto) 1.4 % (0.0-4.3) 01/29/19 03:17 Baso % (Auto) 0.3 % (0.0-1.8) 01/23/19 04:05 Lymph # 0.6 K/mm3 (1.2-5.4) L 01/23/19 04:05 Ellis # 0.8 K/mm3 (0.0-0.8) 01/29/19 03:17 Eos # 0.1 K/mm3 (0.0-0.4) 01/29/19 03:17 Baso # 0.0 K/mm3 (0.0-0.1) 01/29/19 03:17 Add Manual Diff Complete 01/29/19 03:17 Total Counted 100 01/29/19 03:17 Seg Neutrophils % 75.6 % (40.0-70.0) H 01/29/19 03:17 Seg Neuts % (Manual) 85.0 % (40.0-70.0) H 01/29/19 03:17 1.0 % 01/29/19 03:17 8.0 % (13.4-35.0) L 01/29/19 03:17 Reactive Lymphs % (Man) 0 % 01/29/19 03:17 5.0 % (0.0-7.3) 01/29/19 03:17 0 % (0.0-4.3) 01/29/19 03:17 1.0 % (0.0-1.8) 01/29/19 03:17 0 % 01/29/19 03:17 0 % 01/29/19 03:17 0 % 01/29/19 03:17 0 % 01/29/19 03:17 Nucleated RBC % Not Reportable 01/29/19 03:17 Seg Neutrophils # 5.6 K/mm3 (1.8-7.7) 01/29/19 03:17 Seg Neutrophils # Man 6.3 K/mm3 (1.8-7.7) 01/29/19 03:17 Band Neutrophils # 0.1 K/mm3 01/29/19 03:17 0.6 K/mm3 (1.2-5.4) L 01/29/19 03:17 Abs React Lymphs (Man) 0.0 K/mm3 01/29/19 03:17 0.4 K/mm3 (0.0-0.8) 01/29/19 03:17 0.0 K/mm3 (0.0-0.4) 01/29/19 03:17 0.1 K/mm3 (0.0-0.1) 01/29/19 03:17 0.0 K/mm3 01/29/19 03:17 0.0 K/mm3 01/29/19 03:17 0.0 K/mm3 01/29/19 03:17 Blast Cells # 0.0 K/mm3 01/29/19 03:17 WBC Morphology Not Reportable 01/29/19 03:17 Hypersegmented Neuts Not Reportable 01/29/19 03:17 Hyposegmented Neuts Not Reportable 01/29/19 03:17 Hypogranular Neuts Not Reportable 01/29/19 03:17 Not Reportable 01/29/19 03:17 Not Reportable 01/29/19 03:17 Not Reportable 01/29/19 03:17 Not Reportable 01/29/19 03:17 Not Reportable 01/29/19 03:17 Not Reportable 01/29/19 03:17 Consistent w auto 01/29/19 03:17 Not Reportable 01/29/19 03:17 Plt Clumps, EDTA Not Reportable 01/29/19 03:17 Not Reportable 01/29/19 03:17 Not Reportable 01/29/19 03:17 Not Reportable 01/29/19 03:17 Plt Morphology Comment Not Reportable 01/29/19 03:17 RBC Morphology Not Reportable 01/29/19 03:17 Dimorphic RBCs Not Reportable 01/29/19 03:17 Not Reportable 01/29/19 03:17 Not Reportable 01/29/19 03:17 Few 01/29/19 03:17 1+ 01/29/19 03:17 Not Reportable 01/29/19 03:17 Not Reportable 01/29/19 03:17 Rare 01/29/19 03:17 Not Reportable 01/29/19 03:17 Not Reportable 01/29/19 03:17 Not Reportable 01/29/19 03:17 Not Reportable 01/29/19 03:17 Not Reportable 01/29/19 03:17 Not Reportable 01/29/19 03:17 Not Reportable 01/29/19 03:17 Not Reportable 01/29/19 03:17 Not Reportable 01/29/19 03:17 Not Reportable 01/29/19 03:17 Not Reportable 01/29/19 03:17 Few 01/29/19 03:17 Acanthocytes (Spur) Not Reportable 01/29/19 03:17 Rouleaux Not Reportable 01/29/19 03:17 Not Reportable 01/29/19 03:17 Not Reportable 01/29/19 03:17 Not Reportable 01/29/19 03:17 Not Reportable 01/29/19 03:17 Hem Pathologist Commnt No 01/29/19 03:17 POC ABG pH 7.368 (7.35-7.45) 01/26/19 03:59 POC ABG pCO2 55.6 (35-45) H 01/26/19 03:59 POC ABG pO2 69 (80-105) L 01/26/19 03:59 POC ABG HCO3 32.0 (22-26 mml/L) 01/26/19 03:59 POC ABG Total CO2 34 (23-27mmol/L) 01/26/19 03:59 POC ABG O2 Sat 92 01/26/19 03:59 POC ABG Base Excess 7 ((-2) - (+3)mmol/L) 01/26/19 03:59 VBG pH 7.344 (7.320-7.420) 01/21/19 06:55 40 % 01/26/19 03:59 Sodium 140 mmol/L (137-145) 01/29/19 03:17 Potassium 4.4 mmol/L (3.6-5.0) 01/29/19 03:17 Chloride 100.2 mmol/L (98-107) 01/29/19 03:17 Carbon Dioxide 33 mmol/L (22-30) H 01/29/19 03:17 11 mmol/L 01/29/19 03:17 BUN 16 mg/dL (7-17) 01/29/19 03:17 0.5 mg/dL (0.7-1.2) L 01/29/19 03:17 Estimated GFR > 60 ml/min 01/29/19 03:17 32 % 01/29/19 03:17 Glucose 92 mg/dL (65-100) 01/29/19 03:17 POC Glucose 120 (70-105) H 01/27/19 07:54 Lactic Acid 1.90 mmol/L (0.7-2.0) 01/21/19 Unknown Calcium 7.8 mg/dL (8.4-10.2) L 01/29/19 03:17 Phosphorus 3.20 mg/dL (2.5-4.5) 01/29/19 03:17 Magnesium 2.30 mg/dL (1.7-2.3) 01/29/19 03:17 < 0.20 mg/dL (0.1-1.2) 01/29/19 03:17 AST 56 units/L (5-40) H 01/29/19 03:17 ALT 12 units/L (7-56) 01/29/19 03:17 140 units/L (35-129) H 01/29/19 03:17 0.027 ng/mL (0.00-0.029) 01/21/19 Unknown 5.2 g/dL (6.3-8.2) L 01/29/19 03:17 2.3 g/dL (3.9-5) L 01/29/19 03:17 0.8 % 01/29/19 03:17 Yellow (Yellow) 01/21/19 03:49 Slightly-cloudy (Clear) 01/21/19 03:49 5.0 (5.0-7.0) 01/21/19 03:49 Ur Specific [place] 1.016 (1.003-1.030) 01/21/19 03:49 30 mg/dl mg/dL (Negative) 01/21/19 03:49 Neg mg/dL (Negative) 01/21/19 03:49 Tr mg/dL (Negative) 01/21/19 03:49 Neg (Negative) 01/21/19 03:49 Neg (Negative) 01/21/19 03:49 Neg (Negative) 01/21/19 03:49 < 2.0 mg/dL (<2.0) 01/21/19 03:49 Ur Leukocyte Esterase Sm (Negative) 01/21/19 03:49 17.0 /HPF (0.0-6.0) H 01/21/19 03:49 4.0 /HPF (0.0-6.0) 01/21/19 03:49 U Epithel Cells (Auto) 1.0 /HPF (0-13.0) 01/21/19 03:49 Few /HPF 01/21/19 03:49 Hyaline Casts 3 /LPF 01/21/19 03:49 Granular Casts 1 /LPF 01/21/19 03:49 Few /HPF 01/21/19 03:49 3+ /HPF 01/21/19 03:49 Active Medications - Current Medications Current Medications: Generic Name Dose Route Start Last Admin Trade Name Kalpeshq PRN Reason Stop Dose Admin Acetaminophen 650 mg 01/21/19 05:25 01/22/19 15:00 Tylenol PO 650 mg Q4H PRN Administration Pain MILD(1-3)/Fever >100.5/SPRING Albuterol 2.5 mg 01/21/19 05:25 Proventil IH Q3HRT PRN Shortness Of Breath Lipase/Protease/Amylase 1 each 01/21/19 15:[address] 10,500 Unit FEEDTUBE PRN PRN For Clogged Feeding Tube Clonazepam 1 mg 01/29/19 22:00 01/31/19 09:41 Klonopin PO 1 mg BID LUPIS Administration Diphenhydramine HCl 25 mg 01/24/19 08:15 01/29/19 21:27 Benadryl PO 25 mg QHS PRN Administration Insomnia Enoxaparin Sodium 40 mg 01/22/19 13:00 01/31/19 09:44 Lovenox SUB-Q 40 mg DAILY LUPIS Administration Fentanyl 50 mcg 01/26/19 14:00 01/29/19 13:59 Duragesic TD 50 mcg Q3D LUPIS Administration Guaifenesin 10 ml 01/21/19 06:05 Guaifenesin Dm Syrup PO Q4H PRN Cough Hydromorphone HCl 0.5 mg 01/21/19 05:25 01/31/19 01:01 Dilaudid IV 0.5 mg Q3H PRN Administration Pain , Severe (7-10) Lansoprazole 30 mg 01/22/19 13:00 01/31/19 09:42 Prevacid Solutab FEEDTUBE 30 mg QDAY LUPIS Administration Lorazepam 1 mg 01/24/19 14:47 01/29/19 12:10 Ativan IV 1 mg Q6H PRN Administration Anxiety Metoprolol Tartrate 12.5 mg 01/24/19 10:00 01/31/19 09:42 Lopressor PO 12.5 mg BID LUPIS Administration Ondansetron HCl 4 mg 01/21/19 05:25 Zofran IV Q8H PRN Nausea And Vomiting Oxycodone/Acetaminophen 2 tab 01/29/19 15:00 01/31/19 08:21 Percocet 5/325 PO 2 tab Q4HR PRN Administration Pain, Moderate (4-6) Pregabalin 150 mg 01/24/19 10:00 01/31/19 09:41 Lyrica PO 150 mg QDAY LUPIS Administration Simethicone 80 mg 01/22/19 12:00 01/30/19 13:44 Mylicon PO 80 mg Q6H PRN Administration Gas pain Simple Syrup 15 ml 01/21/19 15:02 Simple Syrup FEEDTUBE PRN PRN Hypoglycemia Simple Syrup 30 ml 01/21/19 15:02 Simple Syrup FEEDTUBE PRN PRN Hypoglycemia Sodium Bicarbonate 325 mg 01/21/19 15:02 Sodium Bicarbonate FEEDTUBE PRN PRN For Clogged Feeding Tube Sodium Chloride 10 ml 01/21/19 10:00 01/30/19 09:24 Sodium Chloride Flush Syringe 10 Ml IV 10 ml BID LUPIS Administration Sodium Chloride 10 ml 01/21/19 05:25 01/28/19 23:04 Sodium Chloride Flush Syringe 10 Ml IV 10 ml PRN PRN Administration LINE FLUSH Nutrition/Malnutrition Assess - Dietary Evaluation Nutrition/Malnutrition Findings: Nutrition Notes Start: 01/21/19 13:38 Freq: Status: Active Protocol: Document 01/28/19 11:28 LP (Rec: 01/28/19 11:32 LP [id number]) Nutrition Notes Initial or Follow up Reassessment Current Diagnosis Sepsis,Respiratory Failure Other Pertinent Diagnosis AMS, Metastatic breast CA, UTI Current Diet Osmolite 1.5 at 45ml/hr Labs/Tests Reviewed Pertinent Medications Reviewed Height 5 ft 5 in Weight 72.575 kg Oxly Body Weight (kg) 56.81 BMI 26.6 Subjective/Other Information Pt family does not want her on hospice. Pt tolerating TF at goal rate. Percent of energy/protein needs met: 100%/78% Burn Absent Trauma Absent #1 Nutrition Diagnosis Inadequate oral intake Diagnosis Progress(for reassessment Continues documentation) Is patient on ventilator? Yes Is Patient Ambulatory and/or Out of Bed No REE-([facility]-confined to bed) 1654.936 Calculation Used for Recommendations [facility] Additional Notes Pro needs 1.2-2g/k-145g/ day Fluid needs 1ml/kcal Nutrition Intervention Change Diet Order: TF Nutrition Support: Osmolite 1.5 at 45ml/hr with 150ml water flush q4h. Kcal 1,620 Protein (gm) 68 Fluid (mL) 823 Goal #1 TF tolerance Goal #2 TF at goal rate to meet at least 75% energy and pro needs Anticipated Discharge Needs: Continue TF Follow-Up By: 02/03/19 Additional Comments Follow for TF tolerance
[2019-01-31] MEDS: SODIUM CHLORIDE FLUSH SYRINGE 10 ML IV SCH ×3 (12:55→12:57)
[2019-01-31 16:51] VITALS: BP 93/57
== END 2019-01-31 16:40 | DRG 870 ==
LOC: SUATTDRO 01:29 → ED 01:29 → CC1 05:25
PROVIDERS: ADMIT Internal Medicine; ATTEND Internal Medicine
PROC: 5A1955Z Respiratory Ventilation, Greater than 96 Consecutive Hours (ICD-10-PCS; principal; 2019-01-21)
PROC: 4A033R1 Measurement of Arterial Saturation, Peripheral, Percutaneous Approach (ICD-10-PCS; 2019-01-25)
DX: A41.9 Sepsis, unspecified organism (principal); E43 Unspecified severe protein-calorie malnutrition; J96.21 Acute and chronic respiratory failure with hypoxia; G92 Toxic encephalopathy; T40.601A Poisoning by unspecified narcotics, accidental (unintentional), initial encounter; R65.21 Severe sepsis with septic shock; N39.0 Urinary tract infection, site not specified; Z93.0 Tracheostomy status; Z93.1 Gastrostomy status; Y92.89 Other specified places as the place of occurrence of the external cause; D64.9 Anemia, unspecified; C50.919 Malignant neoplasm of unspecified site of unspecified female breast; C79.51 Secondary malignant neoplasm of bone; Z68.26 Body mass index [BMI] 26.0-26.9, adult; D63.8 Anemia in other chronic diseases classified elsewhere; J91.0 Malignant pleural effusion
CPT/HCPCS: 36415; 36600; 70450; 71045; 80048; 80053; 81001; 82140; 82803; 82805; 82962; 83735; 84100; 84484; 85007; 85025; 87040; 87086; 93005; 93010; 94002; 94003; 96361; 96365; 96375; G0378; J1170; J1644; J1650; J1956; J2060; J2270; J2310; J2405; J2997; J7030; J7040